=== PATIENT | male | born 1965 | race Caucasian/White ===

== ENCOUNTER 2022-05-08 07:08 | Outpatient (CLI) | payer BC, SELFPAY ==
[2022-05-08 07:37] LABS: Anion Gap 8 mmol/L (8-16); Blood Urea Nitrogen 35 mg/dL (7-18); Calcium 9.1 mg/dL (8.5-10.1); Carbon Dioxide 26 mmol/L (21-32); Chloride 101 mmol/L (98-108); Estimated Glomerular Filt Rate 32; Glucose 172 mg/dL (70-99); Osmolality Calculated 292 mOsm/kg (285-295); Potassium 4.1 mmol/L (3.5-5.1); Sodium 135 mmol/L (136-145)
[2022-05-08 07:46] LABS: Hemoglobin A1C 6.9 % (<5.7)
== END 2022-05-08 07:09 | disposition home or self-care (01) ==
LOC: CHSLAB 07:12
PROVIDERS: PCP Internal Medicine; Visit Provider Internal Medicine
DX: E11.9 Type 2 diabetes mellitus without complications (principal)
CPT/HCPCS: 36415; 80048; 83036

== ENCOUNTER 2022-05-26 19:26 | Emergency (ER) | payer BC, SELFPAY ==
--- NOTE | 2022-05-26 19:36 | ED.ALLEREA ---
HPI - Allergic Reaction General Chief complaint: Allergic Reaction Stated complaint: hives from allergic reaction Source: patient, family and RN notes reviewed Mode of arrival: ambulatory Limitations: no limitations History of Present Illness HPI narrative: patient states he is taking valsartan. Recently had his dose increased. He began having some itching just generalized but not really severe. He thought it might be due to his increased dose of losartan so he started breaking it in half. Takes a half in the morning half in the evening. This evening he took the half pill and he got stuck in his throat [place] almost threw up and then he broke out in hives on his back. He said he has had some allergies from many medications in the past. He took 1 Xyzal chewed up and swallowed it took a 2nd Xyzal hole and also took Benadryl. He said he was wheezing the wheezing has resolved. MD complaint: allergic reaction and hives Onset (ago): hour(s) (1) Exposure: medication Symptoms: rash and itching Severity: moderate Treatment prior to arrival: benadryl Previous Allergic Reaction History: prior ED visit(s) Related Data Home Medications Medication Instructions Recorded Confirmed atorvastatin 40 mg tablet 40 mg PO DAILY 05/26/22 05/26/22 empagliflozin 25 mg tablet 25 mg PO DAILY 05/26/22 05/26/22 (Jardiance) escitalopram oxalate 10 mg tablet 10 mg PO DAILY 05/26/22 05/26/22 metformin 500 mg tablet,extended 500 mg PO DAILY 05/26/22 05/26/22 release 24 hr Allergies Allergy/AdvReac Type Severity Reaction Status Date / Time NSAIDS (Non-Steroidal Allergy Unknown Swelling Verified 05/26/22 19:38 Anti-Inflamma of Lip/Tongue/Throat clopidogrel Allergy Hives Verified 05/26/22 19:38 lidocaine Allergy Hives Verified 05/26/22 19:38 ropivacaine Allergy Hives Verified 05/26/22 19:38 Succinimides Allergy Anaphylactic Verified 05/26/22 19:38 Shock succinylcholine Allergy Anaphylactic Verified 05/26/22 19:38 Shock yellow dye Allergy Hives Verified 05/26/22 19:38 tartrazine Allergy Unknown Uncoded 05/26/22 19:40 Review of Systems Review of Systems: All systems reviewed & are unremarkable except as noted in HPI and below PMFSH Past Medical History Medical History Carotid stenosis GERD (gastroesophageal reflux disease) Hypertension Type 2 diabetes mellitus Surgical History Surgical History History of carotid endarterectomy Previous back surgery Family History Family History Father Patient's father is in good health Sibling Patient's sister is in good health Patient's brother is in good health Mother Family history of diabetes mellitus in first degree relative, Onset Age: 64 Patient's mother is Grandparent Family history of heart disease in male family member before age 55 Social History Social History (Updated 05/26/22 @ 19:48 by Deniz Brian MD) Smoking status: Never smoker Exam Const: General: healthy appearing, no acute distress and alert Nutritional Appearance: well nourished Orientation/consciousness: patient oriented x3 Limitations: no limitations HENMT: Head: normal to inspection Ears: external ears normal Eyes: Conjunctivae: conjunctivae normal Pupils: Equal, round and reactive pupils present EOM: EOMs intact bilaterally Neck: Neck: normal visual inspection Resp: Effort & Inspection: normal respiratory effort Auscultation: clear to auscultation bilaterally Cardio: Rate: regular rate Rhythm: regular rhythm GI: GI Palp: Yes Soft to palpation and No Tenderness to palpation present (GI) Auscultation: normal bowel sounds Back/Spine/Pelvis: Cervical Spine: cervical ROM normal Thoracic/Lumbar Spine: thoraco-lumbar ROM normal Skin: General skin exam: normal color Rashes: rashes
[2022-05-26 19:46] VITALS: BP 182/93; PULSE 99; RESP 18; TEMP 36.6; O2SAT 99
[2022-05-26] MEDS: methylPREDNISolone SOD SUCC 125 MG VIAL IM (19:52)
[2022-05-26 20:12] VITALS: BP 146/87; PULSE 89; RESP 18; O2SAT 97
== END 2022-05-26 20:13 | disposition home or self-care (01) ==
PROVIDERS: Emergency Provider Emergency Medicine; PCP Internal Medicine
DX: T78.40XA Allergy, unspecified, initial encounter (principal)
CPT/HCPCS: 96372; 99283; J2930

== ENCOUNTER 2022-09-17 07:58 | Outpatient (CLI) | payer BC, SELFPAY ==
--- NOTE | ~2022-09-17 | US_ITS ---
EXAMINATION: US retroperitoneal duplex ltd DATE: 09/17/2022 09:07 INDICATION: Chronic kidney disease and hypertension TECHNIQUE: Multiple grayscale, color Doppler, and pulsed Doppler images of the kidneys and renal chiquita christina were obtained. COMPARISON: None. FINDINGS: The aorta peak systolic velocity is 99 cm/s. The right renal artery peak systolic velocity is 93 cm/s in the proximal segment, 89 cm/s in the mid segment, and 34 cm/s in the distal segment. The left viktoria al artery peak systolic velocity is 133 cm/s in the proximal segment, 102 cm/s in the mid segment, an d 102 cm/s in the distal segment. IMPRESSION: 1. No Doppler evidence of renal artery stenosis. Reviewed, dictated and finalized at location A. [facility] [employer]
[2022-09-17 09:00] LABS: Basophils Absolute Auto 0.03 K/mm3 (0.00-0.10); Basophils Percent Auto 0.3 % (0.0-1.0); Eosinophils Absolute Auto 0.47 K/mm3 (0.02-0.50); Eosinophils Percent Auto 4.6 % (1.0-6.0); Hematocrit 41.9 % (40.0-54.0); Hemoglobin 14.1 g/dL (14.0-18.0); Immature Granulocyte Absolute 0.07 K/mm3 (0.00-0.00); Immature Granulocyte Percent A 0.7 % (0.0-0.0); Lymphocytes Absolute Auto 1.67 K/mm3 (1.10-4.50); Lymphocytes Percent Auto 16.3 % (18.0-42.0); Mean Corpuscular HGB Conc 33.7 g/dL (32.0-36.0); Mean Corpuscular Hemoglobin 29.9 pg (27.0-31.0); Mean Corpuscular Volume 88.8 fL (78.0-102.0); Mean Platelet Volume 9.8 fl (8.7-11.0); Monocytes Absolute Auto 0.56 K/mm3 (0.10-0.90); Monocytes Percent Auto 5.5 % (2.0-11.0); Neutrophils Absolute Auto 7.5 K/mm3 (1.7-7.2); Neutrophils Percent Auto 72.6 % (50.0-70.0); Platelet Count Result 192 K/mm3 (150-420); Red Blood Count 4.72 M/mm3 (4.70-6.10); Red Cell Distribution Width 14.2 % (11.6-14.4); White Blood Count 10.3 K/mm3 (4.8-10.8)
[2022-09-17 09:09] LABS: Hemoglobin A1C 7.9 % (<5.7)
[2022-09-17 09:17] LABS: Creatinine Urine 204.22 mg/dL (40-278)
[2022-09-17 09:18] LABS: MALB Creatinine Ratio 195.8 mg/g (0-30); Microalbumin Urine Random > 400.0 mg/L
[2022-09-17 09:52] LABS: Alanine Aminotransferase 27 U/L (16-63); Albumin Level 4.1 g/dL (3.4-5.0); Alkaline Phosphatase 99 U/L (46-116); Anion Gap 10 mmol/L (8-16); Aspartate Amino Transferase 14 U/L (15-37); Bilirubin,Total 0.5 mg/dL (0.00-1.00); Blood Urea Nitrogen 37 mg/dL (7-18); Calcium 9.3 mg/dL (8.5-10.1); Carbon Dioxide 26 mmol/L (21-32); Chloride 103 mmol/L (98-108); Cholesterol 148 mg/dL (0-200); Estimated Glomerular Filt Rate 30; Glucose 205 mg/dL (70-99); HDL Direct 29 mg/dL (40-60); LDL Cholesterol Calculated 61 mg/dL (<130); Osmolality Calculated 302 mOsm/kg (285-295); Phosphorus 3.8 mg/dL (2.6-4.7); Potassium 5.4 mmol/L (3.5-5.1); Sodium 139 mmol/L (136-145); Thyroid Stimulating Hormone Reflex 1.72 u/IU/mL (0.36-3.74); Total Protein 7.8 g/dL (6.4-8.2); Triglycerides 291 mg/dL (0-150)
[2022-09-23 16:00] LABS: Renin 11.63 ng/mL/h (0.25-5.82)
== END 2022-09-17 07:59 | disposition home or self-care (01) ==
LOC: CHSIMG 08:00
PROVIDERS: PCP Family Medicine; Visit Provider Family Medicine
DX: E11.9 Type 2 diabetes mellitus without complications (principal); I12.9 Hypertensive chronic kidney disease with stage 1 through stage 4 chronic kidney disease, or unspecified chronic kidney disease; N18.9 Chronic kidney disease, unspecified
CPT/HCPCS: 36415; 80053; 80061; 82043; 82088; 83036; 83735; 84100; 84244; 84443; 85025; 93976

== ENCOUNTER 2022-09-23 15:19 | Outpatient (CLI) | payer BC, SELFPAY ==
[2022-10-01 15:11] LABS: Vanillymandelic Acid 24 Hr Ur 1.7 mg/24 h (< OR = 6.0)
== END 2022-09-23 15:20 | disposition home or self-care (01) ==
LOC: CHSLAB 15:22
PROVIDERS: PCP Family Medicine; Visit Provider Family Medicine
DX: I10 Essential (primary) hypertension (principal)
CPT/HCPCS: 84585

== ENCOUNTER 2022-11-27 09:31 | Outpatient (CLI) | payer BC, SELFPAY ==
[2022-11-27 09:49] LABS: Hematocrit 39.9 % (40.0-54.0); Hemoglobin 13.8 g/dL (14.0-18.0); Mean Corpuscular HGB Conc 34.6 g/dL (32.0-36.0); Mean Corpuscular Hemoglobin 30.1 pg (27.0-31.0); Mean Corpuscular Volume 87.1 fL (78.0-102.0); Mean Platelet Volume 9.8 fl (8.7-11.0); Platelet Count Result 197 K/mm3 (150-420); Red Blood Count 4.58 M/mm3 (4.70-6.10); Red Cell Distribution Width 13.4 % (11.6-14.4); White Blood Count 12.4 K/mm3 (4.8-10.8)
[2022-11-27 10:21] LABS: Alanine Aminotransferase 27 U/L (16-63); Alkaline Phosphatase 115 U/L (46-116); Anion Gap 11 mmol/L (8-16); Aspartate Amino Transferase 24 U/L (15-37); Bilirubin,Total 0.5 mg/dL (0.00-1.00); Blood Urea Nitrogen 42 mg/dL (7-18); Calcium 9.4 mg/dL (8.5-10.1); Carbon Dioxide 27 mmol/L (21-32); Chloride 98 mmol/L (98-108); Estimated Glomerular Filt Rate 30; Glucose 251 mg/dL (70-99); Osmolality Calculated 300 mOsm/kg (285-295); Potassium 4.7 mmol/L (3.5-5.1); Sodium 136 mmol/L (136-145); Total Protein 8.4 g/dL (6.4-8.2); Uric Acid 9.2 mg/dL (3.5-7.2)
== END 2022-11-27 09:32 | disposition home or self-care (01) ==
LOC: CHSLAB 09:33
PROVIDERS: PCP Family Medicine; Visit Provider Nurse Practitioner Family
DX: M79.89 Other specified soft tissue disorders (principal); M79.674 Pain in right toe(s)
CPT/HCPCS: 36415; 80053; 84550; 85027

== ENCOUNTER 2022-12-29 07:56 | Outpatient (CLI) | payer BC, SELFPAY ==
[2022-12-29 08:05] LABS: Hematocrit 40.7 % (40.0-54.0); Hemoglobin 13.8 g/dL (14.0-18.0); Mean Corpuscular HGB Conc 33.9 g/dL (32.0-36.0); Mean Corpuscular Hemoglobin 29.6 pg (27.0-31.0); Mean Corpuscular Volume 87.2 fL (78.0-102.0); Mean Platelet Volume 9.9 fl (8.7-11.0); Platelet Count Result 224 K/mm3 (150-420); Red Blood Count 4.67 M/mm3 (4.70-6.10); Red Cell Distribution Width 13.8 % (11.6-14.4); White Blood Count 10.6 K/mm3 (4.8-10.8)
[2022-12-29 08:23] LABS: Hemoglobin A1C 8.4 % (<5.7)
[2022-12-29 09:00] LABS: Alanine Aminotransferase 35 U/L (16-63); Alkaline Phosphatase 107 U/L (46-116); Anion Gap 10 mmol/L (8-16); Aspartate Amino Transferase 19 U/L (15-37); Bilirubin,Total 0.6 mg/dL (0.00-1.00); Blood Urea Nitrogen 49 mg/dL (7-18); Calcium 9.1 mg/dL (8.5-10.1); Carbon Dioxide 27 mmol/L (21-32); Chloride 100 mmol/L (98-108); Cholesterol 132 mg/dL (0-200); Estimated Glomerular Filt Rate 24; Glucose 215 mg/dL (70-99); HDL Direct 27 mg/dL (40-60); LDL Cholesterol Calculated 40 mg/dL (<130); Osmolality Calculated 303 mOsm/kg (285-295); Sodium 137 mmol/L (136-145); Thyroid Stimulating Hormone 1.88 uIU/mL (0.36-3.74); Total Protein 7.8 g/dL (6.4-8.2); Triglycerides 326 mg/dL (0-150)
[2022-12-29 10:03] LABS: MALB Creatinine Ratio 276.8 mg/g (0-30); Microalbumin Urine Random 348.5 mg/L
== END 2022-12-29 07:57 | disposition home or self-care (01) ==
LOC: CHSLAB 07:57
PROVIDERS: PCP Family Medicine; Visit Provider Nurse Practitioner Family
DX: I10 Essential (primary) hypertension (principal); E11.9 Type 2 diabetes mellitus without complications; N18.9 Chronic kidney disease, unspecified
CPT/HCPCS: 36415; 80053; 80061; 82043; 83036; 84443; 85027

== ENCOUNTER 2023-01-01 12:50 | Outpatient (NON) | payer BC, SELFPAY | END 2023-01-01 12:51 | disposition home or self-care (01) | LOC: CHSLAB 12:52 | PROVIDERS: Visit Provider Nurse Practitioner Family | DX: R21 Rash and other nonspecific skin eruption (principal) | CPT/HCPCS: 87070; 87205 ==

== ENCOUNTER 2023-03-23 07:11 | Outpatient (CLI) | payer BC, SELFPAY ==
[2023-03-23 07:54] LABS: Hemoglobin A1C 7.8 % (<5.7)
== END 2023-03-23 07:12 | disposition home or self-care (01) ==
LOC: CHSLAB 07:12
PROVIDERS: PCP Family Medicine; Visit Provider Nurse Practitioner Family
DX: E11.9 Type 2 diabetes mellitus without complications (principal)
CPT/HCPCS: 36415; 83036

== ENCOUNTER 2023-04-09 07:33 | Outpatient (CLI) | payer BC, SELFPAY ==
[2023-04-09 08:10] LABS: Albumin Level 4.1 g/dL (3.4-5.0); Anion Gap 11 mmol/L (8-16); Blood Urea Nitrogen 38 mg/dL (7-18); Calcium 9.6 mg/dL (8.5-10.1); Carbon Dioxide 28 mmol/L (21-32); Chloride 100 mmol/L (98-108); Estimated Glomerular Filt Rate 29; Glucose 212 mg/dL (70-99); Osmolality Calculated 303 mOsm/kg (285-295); Phosphorus 4.5 mg/dL (2.6-4.7); Potassium 4.8 mmol/L (3.5-5.1); Sodium 139 mmol/L (136-145)
== END 2023-04-09 07:34 | disposition home or self-care (01) ==
LOC: CHSLAB 07:38
PROVIDERS: PCP Family Medicine; Visit Provider Nurse Practitioner Family
DX: M10.9 Gout, unspecified (principal); N18.9 Chronic kidney disease, unspecified
CPT/HCPCS: 36415; 80069; 84550

== ENCOUNTER 2023-06-10 02:12 | Emergency (ER) | payer BC, SELFPAY ==
--- NOTE | ~2023-06-10 | XR_ITS ---
Portable chest x-ray Comparison: None Clinical History: Hypertension Findings: Questionable very subtle right upper lobe pulmonary nodule. Cardiomediastinal silhouette is mildly prominent, possibly due to AP technique. Bones and soft tissues are unremarkable. Impression: Questionable very subtle right upper lobe pulmonary nodule. CT scan recommended to confirm or exclude . Reviewed, dictated and finalized at [facility]. Impression: Questionable very subtle right upper lobe pulmonary nodule. CT scan recommended to confirm or exclude.
[2023-06-10 02:12] VITALS: BP 204/98; PULSE 90; RESP 20; O2SAT 99
--- NOTE | 2023-06-10 02:13 | ED.GENADULT ---
HPI - General Adult General Chief complaint: Unspecified Stated complaint: blood pressure problem Time Seen by Provider: 06/10/23 02:13 Source: patient Mode of arrival: ambulatory Limitations: no limitations History of Present Illness HPI narrative: 58-year-old male with a history of smoking, hypertension, diabetes mellitus, carotid stenosis status post CEA, GERD, depression, chronic back pain, OSMEL,CKD stage 4 saw his primary care physician yesterday for elevated blood Pressure. The patient got up this morning and felt -- flushed. Noted to have elevated blood pressures. His current blood pressure is noted to be 204/98. Blood sugar was noted to be 283 The patient denied any chest pain or shortness of breath. No nausea/vomiting /abdominal pain. Onset (ago): day(s) Relieving factors: none Exacerbating factors: none Associated symptoms: denies other symptoms Related Data Home Medications Medication Instructions Recorded Confirmed hydrochlorothiazide 25 mg tablet 25 mg PO DAILY 09/02/22 06/10/23 nebivolol 20 mg tablet (Bystolic) 20 mg PO BID 11/27/22 06/10/23 atorvastatin 40 mg tablet 40 mg PO .Wed12/02/22 06/10/23 Allergies Allergy/AdvReac Type Severity Reaction Status Date / Time NSAIDS (Non-Steroidal Allergy Unknown Swelling Verified 06/08/23 07:35 Anti-Inflamma of Lip/Tongue/Throat clopidogrel Allergy Hives Verified 06/08/23 07:35 lidocaine Allergy Hives Verified 06/08/23 07:35 ropivacaine Allergy Hives Verified 06/08/23 07:35 Succinimides Allergy Anaphylactic Verified 06/08/23 07:35 Shock succinylcholine Allergy Anaphylactic Verified 06/08/23 07:35 Shock yellow dye Allergy Hives Verified 06/08/23 07:35 yellow dyes Allergy Unknown Unknown Uncoded 06/08/23 07:35 tartrazine Allergy Unknown Uncoded 06/08/23 07:35 Review of Systems Review of Systems: All systems reviewed & are unremarkable except as noted in HPI and below Constitutional: Constitutional: Reports as per HPI and Reports no additional constitutional complaints Eyes: Eyes: Reports as per HPI and Reports no additional eye complaints ENT: Reports system reviewed and no additional complaints, except as documented and Reports as per HPI Cardiovascular: Cardiovascular: Reports as per HPI and Reports no additional cardiovascular complaints Respiratory: Respiratory: Reports as per HPI and Reports no additional respiratory complaints Gastrointestinal: Gastrointestinal: Reports as per HPI and Reports no additional gastrointestinal complaints Genitourinary: Genitourinary: Reports no additional male genitourinary complaints Musculoskeletal: Musculoskeletal: Reports no additional musculoskeletal complaints Integumentary/Breasts: Skin/Breast: Reports system reviewed and no additional complaints, except as docu and Reports as per HPI Neurologic: Reports system reviewed and no additional complaints, except as documented and Reports as per HPI Psychiatric: Psychiatric: Reports no additional psychiatric complaints and Reports as per HPI Endocrine: Endocrine: Reports no additional endocrine complaints and Reports as per HPI Hematologic/Lymphatic: Hematologic/Lymphatic: Reports no additional hematologic/lymphatic complaints and Reports as per HPI Allergic/Immunologic: Allergic/Immunologic: Reports no additional allergic/immunologic complaints and Reports as per HPI PMF Past Medical History Medical History Carotid stenosis CKD (chronic kidney disease) Depression GERD (gastroesophageal reflux disease) Hypertension Hypertension Type 2 diabetes mellitus Surgical History Surgical History History of back surgery 2005. Discectomy History of carotid endarterectomy Previous back surgery Family History Family History Father Patient's father is in good health
[2023-06-10 02:16] VITALS: TEMP 37.3
[2023-06-10 02:27] LABS: Glucose Point of Care 283 mg/dl (65-105)
--- NOTE | 2023-06-10 02:27 | ECG_ITS ---
Measurements Intervals [place] Rate: 84 P: 53 [place]: 180 QRS: 31 QRSD: 99 T: 64 QT: 364 QTc: 432 Interpretive Statements SINUS RHYTHM POSSIBLE RIGHT VENTRICULAR CONDUCTION DELAY [RSR (QR) IN V1/V2] BORDERLINE ECG NO PREVIOUS ECG AVAILABLE FOR COMPARISON Electronically Signed On 06-10-2023 9:07:44 CDT by Kj Ma M.D.
--- NOTE | 2023-06-10 02:28 | PC.NURSE ---
Dr. Pérez stated to pt and that pt was in kidney failure and was right before needing dialysis. Pt sees a double end tenoner setter and stated that doctor never told him that. When doctor left pt stated that he didn't like the news about possibly needing dialysis. Pt's stated don't get upset because I don't think this doctor knows what he is talking about.
[2023-06-10 02:42] LABS: Basophils Absolute Auto 0.04 K/mm3 (0.00-0.10); Basophils Percent Auto 0.4 % (0.0-1.0); Eosinophils Absolute Auto 0.38 K/mm3 (0.02-0.50); Eosinophils Percent Auto 3.9 % (1.0-6.0); Hematocrit 40.9 % (40.0-54.0); Hemoglobin 13.9 g/dL (14.0-18.0); Immature Granulocyte Absolute 0.06 K/mm3 (0.00-0.00); Immature Granulocyte Percent A 0.6 % (0.0-0.0); Lymphocytes Absolute Auto 2.18 K/mm3 (1.10-4.50); Lymphocytes Percent Auto 22.4 % (18.0-42.0); Mean Corpuscular Hemoglobin 29.8 pg (27.0-31.0); Mean Corpuscular Volume 87.6 fL (78.0-102.0); Mean Platelet Volume 9.8 fl (8.7-11.0); Monocytes Absolute Auto 0.66 K/mm3 (0.10-0.90); Monocytes Percent Auto 6.8 % (2.0-11.0); Neutrophils Absolute Auto 6.4 K/mm3 (1.7-7.2); Neutrophils Percent Auto 65.9 % (50.0-70.0); Platelet Count Result 185 K/mm3 (150-420); Red Blood Count 4.67 M/mm3 (4.70-6.10); Red Cell Distribution Width 14.7 % (11.6-14.4); White Blood Count 9.7 K/mm3 (4.8-10.8)
[2023-06-10] MEDS: LABETALOL HCL INJ 100 MG/20 ML VIAL 20 MG IV PUSH (02:51)
[2023-06-10 03:02] VITALS: BP 150/80; PULSE 85; RESP 20; O2SAT 97
[2023-06-10 03:03] LABS: Lactic Acid Reflex 0.4 mmol/L (0.4-2.0)
[2023-06-10 03:04] LABS: Alanine Aminotransferase 24 U/L (16-63); Albumin Level 3.8 g/dL (3.4-5.0); Alkaline Phosphatase 108 U/L (46-116); Anion Gap 12 mmol/L (8-16); Aspartate Amino Transferase 13 U/L (15-37); Bilirubin,Total 0.5 mg/dL (0.00-1.00); Blood Urea Nitrogen 51 mg/dL (7-18); Calcium 9.1 mg/dL (8.5-10.1); Carbon Dioxide 23 mmol/L (21-32); Chloride 97 mmol/L (98-108); Creatine Kinase 51 U/L (39-308); Estimated CRCL calculation 35 ml/min; Estimated Glomerular Filt Rate 26; Glucose 322 mg/dL (70-99); NT Pro B Type Natriuretic Pept 122 pg/mL (0-125); Osmolality Calculated 299 mOsm/kg (285-295); Potassium 3.8 mmol/L (3.5-5.1); Sodium 132 mmol/L (136-145); Total Protein 7.7 g/dL (6.4-8.2); Troponin I 7.4 ng/L (0.00-60.4); Uric Acid 9.7 mg/dL (3.5-7.2)
[2023-06-10 03:48] LABS: Appearance Urine Clear (Clear); Bilirubin Urine Negative (Negative); Blood Urine Negative (Negative); Color Urine Light Yellow (Yellow); Glucose Urine UA 3+ (Negative); Ketones Urine Negative (Negative); Leukocyte Esterase Ur Negative LEU/UL (Negative); Nitrate Urine Negative (Negative); Protein Urine Trace (Negative); Specific Grav Ur 1.015 (1.010-1.020); Urobilinogen Urine 0.2 mg/dL (0.2-1.0)
[2023-06-10 03:54] VITALS: BP 144/75; PULSE 85; RESP 16; O2SAT 96
[2023-06-10 03:54] LABS: Add Urine Microscopic? YES; Bacteria Urine Trace /hpf; RBC Urine 0-2 /hpf (0-2); WBC Urine 0-3 /hpf (0-3)
[2023-06-10 04:24] VITALS: BP 142/70; PULSE 72; RESP 20; TEMP 36.6; O2SAT 97
== END 2023-06-10 04:26 | disposition home or self-care (01) ==
PROVIDERS: Emergency Provider Internal Medicine Critical Care Medicine; PCP Family Medicine
DX: I12.9 Hypertensive chronic kidney disease with stage 1 through stage 4 chronic kidney disease, or unspecified chronic kidney disease (principal); E11.22 Type 2 diabetes mellitus with diabetic chronic kidney disease; N18.4 Chronic kidney disease, stage 4 (severe); Z87.891 Personal history of nicotine dependence
CPT/HCPCS: 36415; 71045; 80053; 81001; 82550; 82948; 83605; 83880; 84484; 84550; 85025; 93005; 96374; 99284

== ENCOUNTER 2023-10-15 08:14 | Outpatient (CLI) | payer BC, OTHER, SELFPAY ==
[2023-10-15 09:04] LABS: Creatinine Urine 72.95 mg/dL (40-278); Total Protein Urine Random 59.1 mg/dL (0.0-11.9); Ur Ttl Prot Creatinine Ratio 0.81 mg/mg (0-0.20)
[2023-10-15 09:22] LABS: Albumin Level 3.9 g/dL (3.4-5.0); Anion Gap 8 mmol/L (8-16); Blood Urea Nitrogen 41 mg/dL (7-18); Calcium 9.2 mg/dL (8.5-10.1); Carbon Dioxide 26 mmol/L (21-32); Chloride 105 mmol/L (98-108); Estimated Glomerular Filt Rate 29; Glucose 137 mg/dL (70-99); Osmolality Calculated 300 mOsm/kg (285-295); Phosphorus 4.8 mg/dL (2.6-4.7); Potassium 5.2 mmol/L (3.5-5.1); Sodium 139 mmol/L (136-145)
[2023-10-18 22:04] LABS: Parathyroid Intact 37 pg/mL (14-64)
[2023-10-19 12:12] LABS: Vitamin D 25 Hydroxy 30 ng/mL (30-100)
== END 2023-10-15 08:15 | disposition home or self-care (01) ==
LOC: CHSLAB 08:18
PROVIDERS: PCP Family Medicine; Visit Provider Internal Medicine Nephrology
DX: N25.81 Secondary hyperparathyroidism of renal origin (principal); N18.4 Chronic kidney disease, stage 4 (severe); I12.9 Hypertensive chronic kidney disease with stage 1 through stage 4 chronic kidney disease, or unspecified chronic kidney disease; E55.9 Vitamin D deficiency, unspecified; E11.22 Type 2 diabetes mellitus with diabetic chronic kidney disease
CPT/HCPCS: 36415; 80069; 82306; 82570; 83970; 84156

== ENCOUNTER 2023-10-29 09:40 | Outpatient (CLI) | payer BC, OTHER, SELFPAY ==
[2023-10-29 10:48] LABS: Hemoglobin A1C 6.7 % (<5.7)
[2023-10-29 12:04] LABS: Cholesterol 158 mg/dL (0-200); HDL Direct 43 mg/dL (40-60); LDL Cholesterol Calculated 90 mg/dL (<130); Potassium 5.2 mmol/L (3.5-5.1); Triglycerides 123 mg/dL (0-150)
== END 2023-10-29 09:41 | disposition home or self-care (01) ==
LOC: CHSLAB 09:42
PROVIDERS: PCP Nurse Practitioner Family; Visit Provider Nurse Practitioner Family
DX: E11.22 Type 2 diabetes mellitus with diabetic chronic kidney disease (principal); N18.4 Chronic kidney disease, stage 4 (severe)
CPT/HCPCS: 36415; 80061; 83036; 84132

== ENCOUNTER 2023-12-31 07:46 | Outpatient (CLI) | payer BC, OTHER, SELFPAY ==
[2023-12-31 08:58] LABS: Anion Gap 11 mmol/L (4-12); Blood Urea Nitrogen 41 mg/dL (7-18); Calcium 9.1 mg/dL (8.5-10.1); Carbon Dioxide 26 mmol/L (21-32); Chloride 103 mmol/L (98-108); Estimated Glomerular Filt Rate 28; Glucose 143 mg/dL (70-99); Osmolality Calculated 302 mOsm/kg (285-295); Phosphorus 3.6 mg/dL (2.6-4.7); Potassium 4.9 mmol/L (3.5-5.1); Sodium 140 mmol/L (136-145)
== END 2023-12-31 07:47 | disposition home or self-care (01) ==
LOC: CHSLAB 07:49
PROVIDERS: PCP Family Medicine; Visit Provider Internal Medicine Nephrology
DX: N18.4 Chronic kidney disease, stage 4 (severe) (principal)
CPT/HCPCS: 36415; 80069

== ENCOUNTER 2024-02-28 07:40 | Outpatient (CLI) | payer BC, OTHER, SELFPAY ==
[2024-02-28 08:10] LABS: Hemoglobin A1C 5.9 % (<5.7)
== END 2024-02-28 07:41 | disposition home or self-care (01) ==
LOC: CHSLAB 07:43
PROVIDERS: PCP Nurse Practitioner Family; Visit Provider Nurse Practitioner Family
DX: E11.22 Type 2 diabetes mellitus with diabetic chronic kidney disease (principal)
CPT/HCPCS: 36415; 83036

== ENCOUNTER 2024-03-03 11:14 | Outpatient (CLI) | payer BC, OTHER, SELFPAY ==
--- NOTE | 2024-03-03 11:44 | ECG_ITS ---
Test Date: 2024-03-03 11:54:03 Measurements Intervals [place] Rate: 76 P: 64 [place]: 172 QRS: 28 QRSD: 92 T: 63 QT: 367 QTc: 413 Interpretive Statements SINUS RHYTHM BASELINE ARTIFACT- I, III, AVR, AVL, AVF, V1-V6 NORMAL ECG No previous ECG available for comparison Electronically Signed On 03-03-2024 11:59:35 CDT by Olegario Sung D.O.
[2024-03-03 12:20] LABS: NT Pro B Type Natriuretic Pept 217 pg/mL (0-125)
== END 2024-03-03 11:15 | disposition home or self-care (01) ==
LOC: CHSLAB 11:16
PROVIDERS: PCP Family Medicine; Visit Provider Nurse Practitioner Family
DX: Z00.00 Encounter for general adult medical examination without abnormal findings (principal); R07.9 Chest pain, unspecified; M10.9 Gout, unspecified; E11.22 Type 2 diabetes mellitus with diabetic chronic kidney disease
CPT/HCPCS: 36415; 83880; 93005

== ENCOUNTER 2024-03-15 21:49 | Emergency (ER) | payer BC, OTHER, SELFPAY ==
[2024-03-15] VITALS (18 sets, daily range): BP systolic 101–182; BP diastolic 59–73; PULSE 69–84; RESP 14–18; TEMP 36.6; O2SAT 93–96
--- NOTE | ~2024-03-15 | XR_ITS ---
XR chest 1V portable Ordering provider: Zhang Pérez MD History: 59 years Male with . left chest pain . Comparison: June 10, 2023 FINDINGS: MEDIASTINUM: The cardiac silhouette is moderately enlarged. Congestive isabella. LUNGS: No infiltrates, effusions or pneumothorax. OTHER: No free air under the diaphragm. Degenerative changes of the spine. IMPRESSION: No acute cardiopulmonary pathology. Reviewed, dictated and finalized at location A.
--- NOTE | 2024-03-15 21:56 | ED.CHESTPAIN ---
HPI - Chest Pain General Chief Complaint: Chest Pain Stated Complaint: chest pain Time Seen by Provider: 03/15/24 21:56 Source: patient Mode of arrival: ambulatory Limitations: no limitations History of Present Illness HPI narrative: 59-year-old male, ex-smoker with a history of hypertension, dyslipidemia, diabetes mellitus, gout, carotid stenosis status post CEA, status post back surgery presents to the ER with a 1 hour history of -- anterior chest pain. patient has been left chest pain the past 2 weeks. The past the chest pain lasted 5-10 minutes. Today he had an unprovoked chest pain which lasted more than an hour which prompted him to come to the ER. At the peak of the pain the patient had a 7/10. Currently the pain has resolved. Patient has nausea without any vomiting. No shortness of breath. No lightheadedness. -- facial flushing Patient is scheduled to have an echocardiogram. He does not have any prior history of getting a stress test. MD complaint: chest pain Onset (ago): hour(s) ( 1 hour) Timing of current episode: constant Prior episodes: Yes Onset: during rest Pain location: left chest Pain radiation: none Pain scale (0-10): 7 Quality: aching Relieving factors: nothing Exacerbating factors: nothing Associated symptoms: nausea Risk Factors Coronary artery disease risk factors: diabetes, smoking history, hyperlipidemia and hypertension Related Data Home Medications Medication Instructions Recorded Confirmed nebivolol 20 mg tablet (Bystolic) 20 mg PO BID 11/27/22 03/03/24 Allergies Allergy/AdvReac Type Severity Reaction Status Date / Time NSAIDS (Non-Steroidal Allergy Unknown Swelling Verified 03/15/24 22:00 Anti-Inflamma of Lip/Tongue/Throat clopidogrel Allergy Hives Verified 03/15/24 22:00 lidocaine Allergy Hives Verified 03/15/24 22:00 ropivacaine Allergy Hives Verified 03/15/24 22:00 Succinimides Allergy Anaphylactic Verified 03/15/24 22:00 Shock succinylcholine Allergy Anaphylactic Verified 03/15/24 22:00 Shock yellow dye Allergy Hives Verified 03/15/24 22:00 yellow dyes Allergy Unknown Unknown Uncoded 03/03/24 09:18 tartrazine Allergy Unknown Uncoded 03/03/24 09:18 Review of Systems Review of Systems: All systems reviewed & are unremarkable except as noted in HPI and below Constitutional: Constitutional: Reports as per HPI and Reports no additional constitutional complaints Eyes: Eyes: Reports as per HPI and Reports no additional eye complaints ENT: Reports system reviewed and no additional complaints, except as documented and Reports as per HPI Cardiovascular: Cardiovascular: Reports as per HPI, Reports no additional cardiovascular complaints and Reports chest pain Respiratory: Respiratory: Reports as per HPI and Reports no additional respiratory complaints Gastrointestinal: Gastrointestinal: Reports as per HPI, Reports no additional gastrointestinal complaints and Reports nausea Genitourinary: Genitourinary: Reports no additional male genitourinary complaints Musculoskeletal: Musculoskeletal: Reports no additional musculoskeletal complaints and Reports as per HPI Integumentary/Breasts: Skin/Breast: Reports system reviewed and no additional complaints, except as docu and Reports as per HPI Neurologic: Reports system reviewed and no additional complaints, except as documented and Reports as per HPI Psychiatric: Psychiatric: Reports no additional psychiatric complaints and Reports as per HPI Endocrine: Endocrine: Reports no additional endocrine complaints and Reports as per HPI Hematologic/Lymphatic: Hematologic/Lymphatic: Reports no additional hematologic/lymphatic complaints and Reports as per HPI Allergic/Immunologic: Allergic/Immunologic: Reports no additional allergic/immunologic complaints and Reports as per HPI [facility] Past Medical History Medical History Carotid stenosis Chronic kidney disease, st
--- NOTE | 2024-03-15 22:00 | ECG_ITS ---
Test Date: 2024-03-15 21:56:33 Measurements Intervals [place] Rate: 79 P: 10 [place]: 165 QRS: 47 QRSD: 97 T: 12 QT: 378 QTc: 434 Interpretive Statements SINUS RHYTHM BASELINE ARTIFACT- I, AVR, AVL NORMAL ECG Compared to ECG 03/03/2024 11:54:03 No significant changes Electronically Signed On 03-16-2024 06:29:28 CDT by Olegario Sung D.O.
[2024-03-15 22:17] LABS: Basophils Absolute Auto 0.04 K/mm3 (0.00-0.10); Basophils Percent Auto 0.3 % (0.0-1.0); Eosinophils Absolute Auto 0.42 K/mm3 (0.02-0.50); Eosinophils Percent Auto 3.2 % (1.0-6.0); Hematocrit 46.1 % (40.0-54.0); Hemoglobin 15.9 g/dL (14.0-18.0); Immature Granulocyte Absolute 0.07 K/mm3 (0.00-0.00); Immature Granulocyte Percent A 0.5 % (0.0-0.0); Lymphocytes Absolute Auto 1.97 K/mm3 (1.10-4.50); Mean Corpuscular HGB Conc 34.5 g/dL (32-36); Mean Corpuscular Hemoglobin 30.1 pg (27.0-31.0); Mean Corpuscular Volume 87.3 fL (78.0-102.0); Monocytes Absolute Auto 0.82 K/mm3 (0.10-0.90); Monocytes Percent Auto 6.3 % (2.0-11.0); Neutrophils Percent Auto 74.7 % (50.0-70.0); Platelet Count Result 196 K/mm3 (150-420); Red Blood Count 5.28 M/mm3 (4.70-6.10); Red Cell Distribution Width 14.6 % (11.6-14.4); White Blood Count 13.1 K/mm3 (4.8-10.8)
[2024-03-15 22:25] LABS: INR 0.9; Partial Thromboplastin Time 27.2 Sec (23.9-30.70); Prothrombin Time 9.9 Seconds (9.50-12.1)
[2024-03-15 22:28] LABS: Lactic Acid Reflex 0.4 mmol/L (0.4-2.0)
[2024-03-15 22:30] LABS: Alkaline Phosphatase 117 U/L (46-116); Anion Gap 10 mmol/L (4-12); Bilirubin,Total 0.5 mg/dL (0.00-1.00); Blood Urea Nitrogen 59 mg/dL (7-18); Calcium 9.1 mg/dL (8.5-10.1); Carbon Dioxide 26 mmol/L (21-32); Chloride 98 mmol/L (98-108); Estimated CRCL calculation 39 ml/min; Estimated Glomerular Filt Rate 28; Glucose 281 mg/dL (70-99); Osmolality Calculated 304 mOsm/kg (285-295); Potassium 4.2 mmol/L (3.5-5.1); Sodium 134 mmol/L (136-145); Total Protein 8.3 g/dL (6.4-8.2)
[2024-03-15 22:34] LABS: Troponin I 12.6 ng/L (0.00-60.4); Uric Acid 7.2 mg/dL (3.5-7.2)
[2024-03-15 22:56] LABS: Alanine Aminotransferase 27 U/L (16-63); Aspartate Amino Transferase 15 U/L (15-37)
--- NOTE | 2024-03-15 23:25 | PC.NURSE ---
PATIENT UPDATE PROVIDED PER RN. PATIENT AWAKE AND ALERT WITHOUT DISTRESS RESTING ON STRETCHER WITH SIG OTHER AT BEDSIDE, DENIES ANY CURRENT PAIN. VSS. RN MONITORING. CALL LIGHT WITHIN REACH.
[2024-03-16] VITALS (11 sets, daily range): BP systolic 131–154; BP diastolic 55–70; PULSE 64–71; RESP 12–17; TEMP 36.1; O2SAT 94–97
--- NOTE | 2024-03-16 00:29 | PC.NURSE ---
PHLEBOTOMY AT BEDSIDE FOR REPEAT TROPONIN DRAW. PATIENT AWAKE AND ALERT WITH VSS. DENIES FURTHER CP.
--- NOTE | 2024-03-16 00:30 | ECG_ITS ---
Test Date: 2024-03-16 00:15:19 Measurements Intervals [place] Rate: 66 P: 40 VT: 178 QRS: 7 QRSD: 93 T: 43 QT: 398 QTc: 420 Interpretive Statements SINUS RHYTHM CONSIDER INFERIOR INFARCT, AGE INDETERMINATE ABNORMAL ECG Compared to ECG 03/15/2024 21:56:33 No significant changes Electronically Signed On 03-16-2024 06:30:18 CDT by Olegario Sung D.O.
--- NOTE | 2024-03-16 00:37 | PC.NURSE ---
DR. TREJO AT BEDSIDE FOR UPDATE TO PATIENT AND HIS SPOUSE.
[2024-03-16 00:52] LABS: Troponin I 12.2 ng/L (0.00-60.4)
--- NOTE | 2024-03-16 01:21 | PC.NURSE ---
DR. TREJO AT BEDSIDE FOR UPDATE REGARDING RESULTS AND PLAN
== END 2024-03-16 01:27 | disposition home or self-care (01) ==
PROVIDERS: Emergency Provider Internal Medicine Critical Care Medicine; PCP Nurse Practitioner Family
DX: I12.9 Hypertensive chronic kidney disease with stage 1 through stage 4 chronic kidney disease, or unspecified chronic kidney disease (principal); E11.22 Type 2 diabetes mellitus with diabetic chronic kidney disease; N18.4 Chronic kidney disease, stage 4 (severe); R07.9 Chest pain, unspecified; E78.5 Hyperlipidemia, unspecified; Z87.891 Personal history of nicotine dependence
CPT/HCPCS: 36415; 71045; 80053; 83605; 84484; 84550; 85025; 85610; 85730; 93005; 99284

== ENCOUNTER 2024-03-30 16:17 | Outpatient (CLI) | payer BC, OTHER, SELFPAY ==
--- NOTE | 2024-03-30 16:23 | ECHO_ITS ---
Patient Info Name: Travis Salmeron Age: 59 years : 1965 Gender: Male Ht: 71 in Wt: 233 lbs BSA: 2.33 m2 HR: 60 bpm BP: 177 / 67 mmHg Technical Quality: Fair Exam Date: 03/30/2024 4:10 PM Exam Location: [facility] EM[facility] Patient Status: Outpatient Admit Date: 03/30/2024 Staff Ordering Physician: Jonas Lee APRN Industrial Engineering Intern: Patrick Meneses RDCS Attending Provider: Jonas Lee APRN Exam Type: CA echo doppler color flow Study Info Indications R07.9 - Chest pain, unspecified Complete two-dimensional, color flow and Doppler transthoracic echocardiogram is performed. Summary 1. Complete two-dimensional, color flow and Doppler transthoracic echocardiogram is performed. 2. Left ventricular chamber dimension is normal. 3. Left ventricular systolic function is normal, estimated at 60-65%. 4. The left ventricular diastolic function is abnormal. 5. E/e' 11 is mildly elevated. 6. No pulmonary hypertension, estimated pulmonary arterial systolic pressure is 13 mmHg. 7. There is trace pulmonic regurgitation. Left Ventricle E/e' 11 is mildly elevated. Left ventricular chamber dimension is normal. Left ventricular systolic function is normal, estimated at 60-65%. The left ventricular diastolic function is abnormal. Right Ventricle Right ventricular systolic function is normal and with normal TAPSE 2.2 cm. Right ventricular chamber dimension is normal. Left Atria Left atrial chamber dimension is normal. Right Atria Right atrial chamber dimension is normal. Aortic Valve The aortic valve is trileaflet. There is no aortic valve stenosis. There is no aortic valve regurgitation. Pulmonic Valve There is trace pulmonic regurgitation. Mitral Valve There is no mitral valve stenosis. There is no mitral valve regurgitation. Tricuspid Valve There is no tricuspid valve regurgitation. No pulmonary hypertension, estimated pulmonary arterial systolic pressure is 13 mmHg. Pericardium/Pleural There is no pericardial effusion. Inferior Vena Cava Normal inferior vena cava with >50% collapse upon inspiration consistent with normal right atrial pressure, 5 mmHg. Aorta The aortic root size at the sinus of Valsalva is normal. Left Ventricular Outflow Tract Name Value Normal LVOT 2D LVOT Diameter 2.4 cm LVOT Doppler LVOT Peak Velocity 156 cm/s LVOT Peak Gradient 10 mmHg LVOT Mean Gradient 5 mmHg LVOT VTI 37 cm LVOT VTI/AV VTI Ratio 0.9 LVOT Stroke Volume 166 ml Pulmonic Valve Name Value Normal PV Doppler PV Peak Velocity 99 cm/s PV Peak Gradient 4 mmHg Mitral Valve Name Value Normal
== END 2024-03-30 16:18 | disposition home or self-care (01) ==
LOC: CHSIMG 16:17
PROVIDERS: PCP Nurse Practitioner Family; Visit Provider Nurse Practitioner Family
DX: R07.9 Chest pain, unspecified (principal); R93.1 Abnormal findings on diagnostic imaging of heart and coronary circulation
CPT/HCPCS: 93306

== ENCOUNTER 2024-04-24 07:45 | Outpatient (CLI) | payer BC, OTHER, SELFPAY ==
--- NOTE | 2024-04-24 07:52 | EST_ITS ---
Patient Info Name: Travis Salmeron Age: 59 years : 1965 Gender: Male Ht: 71 in Wt: 231 lbs BSA: 2.32 m2 HR: 54 bpm BP: 151 / 74 mmHg Heart Rhythm: Sinus Rhythm Technical Quality: Good Exam Date: 04/24/2024 9:06 AM Exam Location: Echo Lab Patient Status: Outpatient Admit Date: 04/24/2024 Staff Ordering Physician: Jonas Lee APRN Attending Provider: Jonas Lee APRN Exam Type: CA stress ying w NM Study Info A regadenoson stress test was performed. History/Risk Factors Hypertension: Yes Diabetes Mellitus: Type II History/Risk Factors carotid stenosis, CKD stage IV. Summary 1. 1. Negative lexiscan stress test for ischemic ST changes by ECG criteria. 2. 2. Baseline hypertension. 3. 3. Nuclear scan to follow and will be reported separately. Please correlate with it. Protocol: LEXISCAN Stress ECG Details Stage: REST Duration (min): 3 min : 45 sec HR (bpm): 57 SBP (mmHg): 151 DBP (mmHg): 74 Stage: REST Duration (min): 3 min : 56 sec HR (bpm): 56 SBP (mmHg): 151 DBP (mmHg): 74 Stage: REST Duration (min): 14 min : 55 sec HR (bpm): 58 SBP (mmHg): 151 DBP (mmHg): 74 Stage: STAGE 1 Duration (min): 0 min : 23 sec HR (bpm): 59 SBP (mmHg): 151 DBP (mmHg): 74 Stage: RECOVERY Duration (min): 0 min : 36 sec HR (bpm): 70 SBP (mmHg): 151 DBP (mmHg): 74 Stage: RECOVERY Duration (min): 1 min : 36 sec HR (bpm): 75 SBP (mmHg): 151 DBP (mmHg): 74 Stage: RECOVERY Duration (min): 2 min : 36 sec HR (bpm): 74 SBP (mmHg): 160 DBP (mmHg): 82 Stage: RECOVERY Duration (min): 3 min : 36 sec HR (bpm): 72 SBP (mmHg): 154 DBP (mmHg): 82 Stage: RECOVERY Duration (min): 4 min : 36 sec HR (bpm): 71 SBP (mmHg): 151 DBP (mmHg): 85 Stage: RECOVERY Duration (min): 5 min : 36 sec HR (bpm): 71 SBP (mmHg): 152 DBP (mmHg): 84 Stage: RECOVERY Duration (min): 6 min : 31 sec HR (bpm): 70 SBP (mmHg): 155 DBP (mmHg): 82 Rest HR: 58 bpm Peak HR: 76 bpm Rest Sys BP: 151 mmHg Peak Sys BP: 160 mmHg Max Pred HR: 163 bpm % Max Pred HR: 47 % Target HR: 139 bpm Max RPP: 12,160 bpm*mmHg BP Response: Normal blood pressure response Termination Reason: Completed Protocol Cardiac Symptoms: None Total Time: 0 min : 23 sec Rest Warner BP: 74 mmHg Peak Warner BP: 82 mmHg Total Dose: 0.4 mg Resting ECG Sinus bradycardia. Stress ECG No abnormal ST/T wave changes. Arrhythmias None. Report Signatures
--- NOTE | 2024-04-24 13:24 | WPDCARIOSTRE ---
Nuclear Stress Test INDICATIONS Indications: Chest pain PROCEDURE Procedure Performed: Myocardial Perf Spect-Multi Procedure: Patient exercised on a standard Vikash protocol and at peak exercise was injected with 30.5 mCi of cardiolyte. Multiple tomographic images were obtained. These are of good quality. There is evidence of a large, severe anteroapical, apical and apical-lateral perfusion defects, and moderate size, moderate severity inferior perfusion defect with stress imaging. A separate resting images were obtained after patient was injected with 10.0 mCi of cardiolyte. Multiple tomographic images were obtained. These are of good quality. There is evidence of a moderate size, moderate severity anteroapical, apical and apical-lateral perfusion defects, and moderate size, moderate severity inferior perfusion defect with rest imaging. CONCLUSION Conclusion: 1. Abnormal myocardial perfusion imaging demonstrating combination of infarct and partial reversible ischemia of anteroapical, apical and apical-lateral defects. In addition, there is a fixed moderate size inferior defect suggestive of diaphragmatic attenuation artifact. 2. Left ventriculogram demonstrates normal measured ejection fraction of 60% with mild hypokinesis of apex. 3. TID score 1.2 is unremarkable.
== END 2024-04-24 07:46 | disposition home or self-care (01) ==
LOC: CHSCARD 07:46
PROVIDERS: PCP Nurse Practitioner Family; Visit Provider Nurse Practitioner Family
DX: R07.9 Chest pain, unspecified (principal); R94.39 Abnormal result of other cardiovascular function study
CPT/HCPCS: 78452; 93017; A9502; J2785

== ENCOUNTER 2024-08-21 09:00 | Outpatient (CLI) | payer BC, OTHER, SELFPAY ==
[2024-08-21 09:24] LABS: Hematocrit 40.9 % (40.0-54.0); Mean Corpuscular HGB Conc 34.2 g/dL (32-36); Mean Corpuscular Hemoglobin 29.7 pg (27.0-31.0); Mean Corpuscular Volume 86.7 fL (78.0-102.0); Mean Platelet Volume 9.4 fl (8.7-11.0); Platelet Count Result 158 K/mm3 (150-420); Red Blood Count 4.72 M/mm3 (4.70-6.10); Red Cell Distribution Width 14.4 % (11.6-14.4)
[2024-08-21 09:35] LABS: Hemoglobin A1C 8.6 % (<5.7)
[2024-08-21 09:38] LABS: Total Protein Urine Random 41.8 mg/dL (0.0-11.9); Ur Ttl Prot Creatinine Ratio 0.55 mg/mg (0-0.20)
[2024-08-21 09:53] LABS: MALB Creatinine Ratio 239.5 mg/g (0-30); Microalbumin Urine Random 182.3 mg/L
[2024-08-21 10:21] LABS: Alanine Aminotransferase 28 U/L (16-63); Albumin Level 3.7 g/dL (3.4-5.0); Alkaline Phosphatase 135 U/L (46-116); Anion Gap 8 mmol/L (4-12); Aspartate Amino Transferase 17 U/L (15-37); Bilirubin,Total 0.5 mg/dL (0.00-1.00); Blood Urea Nitrogen 45 mg/dL (7-18); Calcium 9.5 mg/dL (8.5-10.1); Carbon Dioxide 29 mmol/L (21-32); Chloride 105 mmol/L (98-108); Cholesterol 162 mg/dL (0-200); Estimated Glomerular Filt Rate 29; Glucose 183 mg/dL (70-99); HDL Direct 33 mg/dL (40-60); LDL Cholesterol Calculated 63 mg/dL (<130); Osmolality Calculated 310 mOsm/kg (285-295); Phosphorus 4.6 mg/dL (2.6-4.7); Potassium 4.9 mmol/L (3.5-5.1); Sodium 142 mmol/L (136-145); Triglycerides 330 mg/dL (0-150)
[2024-08-22 08:43] LABS: Vitamin D 25 Hydroxy 23 ng/mL (30-100)
[2024-08-22 12:53] LABS: Parathyroid Intact 55 pg/mL (16-77)
== END 2024-08-21 09:01 | disposition home or self-care (01) ==
PROVIDERS: PCP Nurse Practitioner Family; Visit Provider Internal Medicine Nephrology
DX: I12.9 Hypertensive chronic kidney disease with stage 1 through stage 4 chronic kidney disease, or unspecified chronic kidney disease (principal); E11.22 Type 2 diabetes mellitus with diabetic chronic kidney disease; N25.81 Secondary hyperparathyroidism of renal origin; E55.9 Vitamin D deficiency, unspecified; E11.9 Type 2 diabetes mellitus without complications; R79.89 Other specified abnormal findings of blood chemistry; E78.5 Hyperlipidemia, unspecified; N18.4 Chronic kidney disease, stage 4 (severe)
CPT/HCPCS: 36415; 80053; 80061; 82043; 82306; 82570; 83036; 83970; 84100; 84156; 85027

== ENCOUNTER 2024-11-08 09:33 | Outpatient (CLI) | payer BC, OTHER, SELFPAY ==
[2024-11-08 10:19] LABS: Influenza A QL RT-PCR Negative (Negative); Influenza B QL RT-PCR Negative (Negative); RSV RNA, RT-PCR Negative (Negative); SARS-CoV-2 RNA PCR Positive (Negative)
--- OUTSIDE RECORDS SUMMARY | 2024-11-08 10:23 | XMS_ITS | Encounter Summary ---
Author Organization [facility] Address [address] [place] [address] Phone Care Team Providers Care Retread Mold Operator Name Role Phone Sj Hernandez MD Primary Care Provider Cecily Cornejo MD Primary Care Provider Jacques Hobbs DO Primary Care Provider Encounter Details Date Type Department Care Team (Latest Contact Info) Description 12/15/2017 Orders Only [facility] CONVERSION Scanning, Provider Social History Tobacco Use Types Packs/Day Years Used Date Smoking Tobacco: Former Cigarettes Q uit: 08/30/2006 Alcohol Use Standard Drinks/Week Comments No 0 (1 standard drink = 0.6 oz pur e alcohol) Sex and Gender Information Value Date Recorded Sex Assigned at Not on file 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 Gender Identity Male 02/13/2019 5:28 PM CDT Sexual Orientation Straight 02/13/2019 5: 28 PM CDT documented as of this encounter Plan of Treatment Not on file documented as of this encounter Procedures Procedure Name Priority Date/Time Associated Diagnosis Comments VASCULAR LABORATORY REPORT 12/15/2017 3:50 PM CDT documented in this encounter Results * VASCULAR LABORATORY REPORT (12/15/2017 3:50 PM CDT) Anatomical Region Laterality Modality Ultrasound us Provider Scanning CV VASCULAR PROCEDURES Final R esult documented in this encounter Visit Diagnoses Not on filedocumented in this encounter Care Teams Retread Mold Operator Relationship Specialty Start Date End Date Sj Hernandez MD [address] [place] [id number] PCP - General 11/27/16 02/21/20 Cecily Cornejo MD [address] [place] [id number] PCP - General Internal Medicine 02/22/20 06/10/23 Jacques Hobbs DO [address] [place] [address] PCP - General Family Medicine 06/11/23 documented as of this encounter
--- OUTSIDE RECORDS SUMMARY | 2024-11-08 10:23 | XMS_ITS | Clinical Summary ---
Author Organization [facility] Address [address] [address] Care Team Providers Care Homebound Teacher Name Role Phone EstelaJacques rg Primary Care Provider Allergies Active Allergy Reactions Criticality Noted Date Comments Aspirin Anaphylaxis High Clopidogrel Hives Medium 03/29/2015 Iodine Hives Medium Lidocaine Rash,Anaphylaxis High 08/20/2017 Nsaids (Non-Steroidal Anti-Inflammatory Drug) Anaphylaxis High Reaction: Anaphlaxis, Olmesartan-Hydrochlorothia zide Anaphylaxis High Other Anaphylaxis,Hives High 02/01/2014 Ropivacaine Rash,Anaphylaxis High 05/18/2014 Succinylcholine Anaphylaxis High 05/18/2014 Calcium Carbonate Anaphylaxis High Yellow Dye Rash Medium 08/20/2017 Medications levocetirizine (XYZAL) 5 mg tablet take 1 tablet (5MG) by oral route every day in the evening 30 4 2 Active aspirin 325 mg EC tablet take 1 tablet by oral route every day 0 0 4 Active flash glucose scanning reader misc 1 Device daily Please dispense 1 freestyle criss reader 1 each 0 Active flash glucose sensor kit 2 Units daily Please dispense 2 sensors per month 6 kit 3 1 Active EPINEPHrine (EpiPen) 0.3 mg/0.3 mL auto-injection syringe Inject 0.3 mL (0.3 mg total) into the muscle as instructed as needed for anaphylaxis 2 each 3 04/15/202 2 Active nebivoloL (Bystolic) 20 mg tablet Take 1 tablet (20 mg total) by mouth 2 (two) times a day 180 tablet 3 3 Active semaglutide (Ozempic) 0.25 mg or 0.5 mg (2 mg/3 mL) pen injector Inject 0.5 mg under the skin every 7 days 9 mL 3 3 Active allopurinoL (ZYLOPRIM) 100 mg tablet Take 1 tablet (100 mg total) by mouth daily 3 Active BD Ultra-Fine Short Pen Needle 31 gauge x 5/16 needle as directed 3 Active insulin detemir (LEVEMIR) 100 unit/mL (3 mL) pen for injection Inject under the skin Active escitalopram (LEXAPRO) 10 mg tablet 3 Active traMADoL (ULTRAM) 50 mg tablet 3 Active terbinafine (LamiSIL) 250 mg tablet 3 Active irbesartan (AVAPRO) 300 mg tablet TAKE 1 TABLET BY MOUTH EVERY DAY AT NIGHT 30 tablet 4 Active atorvastatin (LIPITOR) 40 mg tablet TAKE 1 TABLET (40 MG TOTAL) BY MOUTH 3 (THREE) TIMES A WEEK 14 tablet 4 Active amLODIPine (NORVASC) 10 mg tablet TAKE 1 TABLET BY MOUTH EVERY DAY 30 tablet 4 Active hydroCHLOROthia zide (HYDRODIURIL) 25 mg tablet TAKE 1 TABLET (25 MG TOTAL) BY MOUTH DAILY. 30 tablet 4 Active Jardiance 10 mg tablet Take 1 tablet (10 mg total) by mouth every morning 4 Active cloNIDine (CATAPRES) 0.2 mg tablet Take 1 tablet (0.2 mg total) by mouth 2 (two) times a day 4 Active Active Problems Problem Noted Date Diagnosed Date Chronic kidney disease-mineral and bone disorder 12/09/2022 Persistent proteinuria 07/21/2022 Chronic kidney disease, stage 4 (severe) 022 Assessment & Plan (11/10/2022 4:01 PM CDT): BMP today Will request Renal dopplers from [facility] BP and BG control Continue jardiance and ARB Continue follow up with nephrology Assessment & Plan (05/12/2022 7:51 AM CDT): Recommend consultation with white metal corrosion proofer Referral placed Current moderate episode of major depressive disorder without prior episode 02/10/2022 Assessment & Plan (11/10/2022 4:01 PM CDT): Start fluoxetine 20mg daily Follow up 3 months Assessment & Plan (07/20/2022 10:39 AM TELEVISION PRODUCTION ASSISTANT): Would like to restart the escitalopram. Prescription sent to the pharmacy. Assessment & Plan (02/10/2022 6:22 PM CDT): Start lexapro 10 daily Follow up 1 month Type 2 diabetes mellitus with chronic kidney dis ease 02/09/2022 Assessment & Plan (11/10/2022 4:03 PM CDT): A1c today Urine micral/cr today Foot exam today Encouraged to schedule eye exam Restart jardiance continue ozempic 0.5mg and metformin Follow up 6 months Assessment & Plan (05/12/2022 7:51 AM CDT): A1c at goal Continue current regimen Encouraged to schedule eye exam Follow up 6 months Onychomycosis 12/12/2021 Assessment & Plan (12/12/2021 12:52 PM CDT): Ciclopirox lacquer If no improvement, will Rx Terbinafine PO Vitamin D deficiency 12/12/2021 Assessment & Plan (11/10/2022 8:10 AM CDT): Continue supplement Check level today Assessment & Plan (12/12/2021 12:53 PM CDT): Check level today Stenosis of left carotid artery 05/13/2021 Assessment & Plan (11/10/2022 8:09 AM CDT): Continue aspirin, statin Follow up with vascular surgery Anxiety 05/27/2020 Assessment & Plan (11/11/2020 5:28 PM CDT): Stable Continue BuSpar Assessment & Plan (05/27/2020 5:45 PM CDT): Start Buspar 5 BID Can uptitrate by 5mg every 2-3 days until reach effective dose Encounter for surgical after care following surgery on the circulatory system 05/10/2020 OSMEL on CPAP 11/09/2019 Assessment & Plan (11/10/2022 3:29 PM CDT): encouraged nightly CPAP use Referred to sleep med for follow up Assessment & Plan (12/12/2021 12:52 PM CDT): Continue nightly CPAP Assessment & Plan (11/11/2020 5:27 PM CDT): Continue nightly CPAP Assessment & Plan (02/22/2020 6:26 PM CDT): Encouraged CPAP compliance Bruit of left carotid artery 12/21/2017 Class 1 obesity due to exces s calories with serious comorbidity and body mass index (BMI) of 31.0 to 31.9 in adult 08/20/2017 Assessment & Plan (11/10/2022 2:42 PM CDT): BMI Follow-up includes: nutrition counseling, exercise counseling and education provided. Assessment & Plan (07/20/2022 9:26 AM TELEVISION PRODUCTION ASSISTANT): BMI Follow-up includes: nutrition counseling, exercise counseling and education provided. Assessment & Plan (05/12/2022 9:48 AM CDT): BMI Follow-up includes: nutrition counseling, exercise counseling and education provided. Assessment & Plan (02/09/2022 2:13 PM CDT): BMI Follow-up includes: nutrition counseling, exercise counseling and education provided. Assessment & Plan (12/12/2021 10:12 AM CDT): BMI Follow-up includes: nutrition counseling and exercise counseling. Assessment & Plan (11/11/2020 2:20 PM CDT): BMI Follow-up includes: nutrition counseling, exercise counseling and education provided. Assessment & Plan (01/03/2019 3:24 PM CDT): BMI Follow-up includes: nutrition counseling, exercise counseling and education provided. Assessment & Plan (09/22/2018 3:54 PM TELEVISION PRODUCTION ASSISTANT): BMI Follow-up includes: nutrition counseling, exercise counseling and education provided. Encourage diet and exercise Assessment & Plan (08/20/2017 8:32 AM TELEVISION PRODUCTION ASSISTANT): BMI Follow-up includes: nutrition counseling, exercise counseling and education provided. Palpitations 08/20/2017 Assessment & Plan (08/20/2017 8:45 AM TELEVISION PRODUCTION ASSISTANT): Well controlled on Bystolic. Only very rarely. Previously correlated to PVCs. Continue follow up with Dr. Washburn and continue Bystolic. Low back pain 08/20/2017 Assessment & Plan (02/22/2020 6:26 PM CDT): History of back surgery Takes tramadol p.r.n. for pain as he is allergic to other analgesics Assessment & Plan (08/20/2017 8:46 AM TELEVISION PRODUCTION ASSISTANT): H/o discectomy. Well controlled on tramadol 1-2 pills per day. Will continue. Pt with severe allergy to NSAIDS. Ventricular premature beats 03/29/2015 Hyperlipidemia 10/12/2014 Overview (12/03/2016): Hyperlipemia Assessment & Plan (11/10/2022 8:08 AM CDT): Lipid panel today Continue atorvastatin 40 Assessment & Plan (12/12/2021 10:22 AM CDT): Lipid panel today Continue atorvastatin Assessment & Plan (11/11/2020 5:27 PM CDT): Continue atorvastatin 40 Lipid panel today Assessment & Plan (09/28/2019 3:34 PM TELEVISION PRODUCTION ASSISTANT): We will recheck a fasting f lipid profile in the next week Assessment & Plan (01/03/2019 3:49 PM CDT): Reviewed his last lipid profile I think we can safely follow him at this time continue on atorvastatin for Assessment & Plan (09/22/2018 3:55 PM TELEVISION PRODUCTION ASSISTANT): Recheck a fasting lipid profile in the near future. Assessment & Plan (08/20/2017 8:45 AM TELEVISION PRODUCTION ASSISTANT): Last LDL was 81 04/2016. Will check lipid panel today. Continue atorvastatin 3x a week. Ephelides 10/11/2014 Skin neoplasm 10/11/2014 Adverse effect of drug 03/28/2014 Anaphylaxis 03/28/2014 Hypertension 01/13/2014 Overview (12/04/2016): HYPERTENSION NOS Assessment & Plan (11/10/2022 4:02 PM CDT): BP well controlled Continue amlodipine 10, hctz 25, bystolic 40 D/c azilsartan 80 due to lack of coverage Previous reactions to valsartan and olmesartan Start irbesartan 300 Assessment & Plan (07/20/2022 10:36 AM TELEVISION PRODUCTION ASSISTANT): Patient appears to be having allergic reaction to the valsartan. I think it is the in the tablet. Stop the valsartan start with Edarbi we are going to start with 40 mg for 2 weeks and then increase to 80 if need be. Assessment & Plan (05/12/2022 10:28 AM CDT): BP elevated today but generally well controlled Continue amlodipine 10, hctz 25, bystolic 40, valsartan 160 BID Assessment & Plan (12/12/2021 10:37 AM CDT): BP well controlled Continue current regimen Monitor at home and send readings in 1 week Assessment & Plan (11/11/2020 5:27 PM CDT): BP well controlled Continue amlodipine 10, valsartan 160, Bystolic 20, and hydrochlorothiazide 25 daily Assessment & Plan (02/22/2020 6:27 PM CDT): BP above goal today though generally well controlled Continue qxqtrbinin-ukclwjquc-OBBG 10-160-25 Assessment & Plan (11/24/2019 9:42 AM CDT): Well controlled on current regimen Assessment & Plan (09/28/2019 3:34 PM TELEVISION PRODUCTION ASSISTANT): Well controlled on current regimen Assessment & Plan (01/03/2019 3:49 PM CDT): A controlled on current regimen Assessment & Plan (08/20/2017 8:44 AM TELEVISION PRODUCTION ASSISTANT): Well controlled. Continue current regimen of bystolic, amlodipine, valsartan and HCTZ. Resolved Problems Problem Noted Date Diagnosed Date Resolved Date AICHA (acute kidney injury) 02/10/2022 Assessment & Plan (02/10/2022 6:22 PM CDT): Repeat BMP today Type 2 diabetes mellitus with hyperglycemia 02/09/2022 05/12/2022 Type 2 diabetes mellitus, wi thout long-term current use of insulin 11/09/2019 05/12/2022 Assessment & Plan (02/10/2022 6:23 PM CDT): Just took first dose of Ozempic today in office out of concern for having allergic reaction. Tolerated medication well Will repeat A1c next visit Assessment & Plan (12/12/2021 12:52 PM CDT): A1c today Continue jardiance 25, metformin XR 500 Foot exam today without neuropathy Encouraged to schedule eye exam Follow up 6 months Assessment & Plan (11/11/2020 5:28 PM CDT): A1c today Continue Jardiance 25 and metformin XR 500 Urine micral/cr today Follow up 6 months Assessment & Plan (05/27/2020 5:46 PM CDT): Repeat A1c today Increase Metformin to 1000mg Continue Jardiance 25 Referral for eye exam sent Assessment & Plan (02/22/2020 6:31 PM CDT): A1c above goal, repeat today Continue Jardiance 25, metformin 500 daily Urine micral/cr today Foot exam today without neuropathy Referred for eye exam Follow up 3 months BMI 31.0-31.9,adult 09/28/2019 11/12/19 21 Overview (09/28/2019): BMI Follow-up includes: nutrition counseling, exercise counseling and education provided. Assessment & Plan (05/27/2020 3:26 PM CDT): BMI Follow-up includes: nutrition counseling, exercise counseling and education provided. Assessment & Plan (02/22/2020 3:21 PM CDT): BMI Follow-up includes: nutrition counseling, exercise counseling and education provided. Assessment & Plan (11/09/2019 2:43 PM CDT): BMI Follow-up includes: nutrition counseling, exercise counseling and education provided. Elevated blood sugar 01/03/2019 020 Assessment & Plan (11/24/2019 9:43 AM CDT): A1c in June was 9.0, begin with metformin, Jardiance 25 we will see him in late September, patient will need aggressive management of his diabetes including weight loss Assessment & Plan (09/28/2019 3:35 PM TELEVISION PRODUCTION ASSISTANT): A1c in June was 9.0, begin with metformin, Jardiance 25 we will see him in late September Snoring 09/22/2018 02/22/2020 Assessment & Plan (11/24/2019 9:42 AM CDT): He is diagnosed with obstructive sleep apnea continues on CPAP Assessment & Plan (09/22/2018 3:53 PM TELEVISION PRODUCTION ASSISTANT): He is very concerned about the possibility of sleep apnea states he snores, states he stops breathing, states he is very fatigued during the day he has a Mallampati 3 score at this point we will get him started with a sleep evaluation Preventative health care 08/20/2017 Immunizations Immunization Administration Dates Next Due Influenza, Quadrivalent, Spl it, Preservative Free, Intramuscular 05/27/2020 Influenza, Unspecified 11/10/2022(Deferr ed: Patient Refused),06/22/2018(Deferred: Patient Refused),08/20/2017(Deferred: Patient Refused),08/20/2017(Deferred: Patient Refused) Moderna SARS-CoV-2 Monovalen t Vaccination (12+ YRS) 01/27/2022,08/11/2021,11/19/2020,10/29 Tdap 11/10/2022 Medical History Medical History Date Comments Hx Other Medical 2006 Herniater Disc 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 Anaphylactic shock Anaphylaxis - (Added by TW Conv) Family History Medical History Relation Name Comments Coronary artery disease Mother Fami ly history of coronary artery disease - (Added by TW Conv) Diabetes Mother Family history of diabetes mellitus - (Added by TW Conv) Heart attack Mother Family history of heart attack - (Added by TW Conv) Heart failure Mother Family history of heart failure - (Added by TW Conv) Hypertension Mother Family history of hypertension - (Added by TW Conv) Sudden Cardiac Mother Family history of sudden cardiac - (Added by TW Conv) Heart disease Other 3 Heart disease; Diabetes Other 4 Diabetes mellit us; Relation Name Status Comments Mother Other 1 Alive Other 2 Alive Other 3 Other 4 Social History Tobacco Use Types Packs/Day Years Used Date Smoking Tobacco: Former Cigarettes Smokeless Tobacco: Former Chew Tobacco Cessation:Counseling Given: Not Answered Comments:quit 2008 Alcohol Use Standard Drinks/Week Comments No 0 (1 standard drink = 0.6 oz pur e alcohol) quit 1998 AUDIT-C Answer Date Recorded Q1: How often do you have a drink containing alc ohol? 2-3 times a week 11/10/2022 Q2: How many drinks containi ng alcohol do you have on a typical day when you are drinking? 1 or 2 11/10/2022 Q3: How often do you have si x or more drinks on one occasion? Never 11/10/2022 PHQ-2 Answer Date Recorded PHQ-2 Total Score 0 11/10/2022 Sex and Gender Information Value Date Recorded Sex Assigned at Not on file Legal Sex Male 1:03 PM TELEVISION PRODUCTION ASSISTANT Gender Identity Male 02/13/2019 5:28 PM CDT Sexual Orientation Straight 02/13/2019 5: 28 PM CDT Obstetrics History Last Filed Vital Signs Vital Sign Reading Time Taken Comments Blood Pressure 186/80 06/16/2024 9:04 AM CDT Pulse 98 06/16/2024 9:04 AM CDT Temperature 37.1 C (98.7 F) 05/26/2023 10:31 AM CDT Respiratory Rate 20 11/10/2022 2:50 PM CDT Oxygen Saturation 100% 06/16/2024 9:04 AM CDT Inhaled Oxygen Concentration - - Weight 108.4 kg (239 lb) 06/16/2024 9:04 AM CDT Height 180.3 cm (5' 11 ) 06/16/2024 9:04 AM CDT Body Mass Index 33.33 06/16/2024 9:04 AM CDT Plan of Treatment Health Maintenance Due Date Last Done Comments Colon Cancer Screening-Colonoscopy 1967 Hepatitis C Screening 1967 Dilated Eye Exam 1967 Hepatitis B Screening 1985 Pneumococcal vaccine <65 (1 of 2 - PCV) 1986 Zoster Vaccine (1 of 2) 2017 Hemoglobin A1C 05/13/2023 11/10/2022, 11/28, 11/11/2020, Additional history exists Albumin Creatinine Ratio, Urine 11/11/2023 11/10/2022, 12/12/2021, 11/11/2020, Additional history exists Depression Screening 11/11/2023 11/10/2022, 07/20/2022, 05/12/2022, Additional history exists Foot Exam 11/11/2023 11/10/2022, 11/28, 02/22/2020 Lipid Panel 11/11/2023 11/10/2022, 11/28, 11/11/2020, Additional history exists Regular Well Visit/Exam 18-64 11/11/2023, 12/12/2021, 11/11/2020, Additional history exists eGFR 11/11/2023 11/10/2022, 01/28, 12/12/2021, Additional history exists Covid-19 Vaccine (5 - 2023-2 5 season) 2024 01/27/2022, 08/11/2021, 11/19/2020, Additional history exists Influenza Vaccine (#1) 2024 05/27/2020 Prostate Cancer Screening-PSA 11/10/2024, 11/18/2018, 08/20/2017 DTaP/Tdap/Td Vaccine (2 - Td or Tdap) 11/10/2032 11/10/2022 Procedures Procedure Name Priority Date/Time Associated Diagnosis Comments EGFR Routine 11/10/2022 4:15 PM CDT Hyperlipidemia, unspecified hyperlipidemia type HEMOGLOBIN A1C Routine 11/10/2022 4:15 PM CDT Type 2 diabetes mellitus with stage 3b chronic kidney disease, without long-term current use of insulin (HCC) LIPID PANEL Routine 11/10/2022 4:15 PM CDT Hyperlipidemia, unspecified hyperlipidemia type ALBUMIN CREATININE RATIO, URINE Routine 11/10/2022 4:15 PM CDT Type 2 diabetes mellitus with stage 3b chronic kidney disease, without long-term current use of insulin (HCC) PSA SCREEN Routine 11/10/2022 4:15 PM CDT Encounter for screening for malignant neoplasm of prostate from Last 3 Months or Most Recently Relevant to Health Maintenance Results * eGFR (11/10/2022 4:15 PM CDT) eGFR 36 mL/min/1. 73 m2 [facility] Comment: Interpretive Data Reference Interval Normal >/= 90 mL/min/1.73m2 Mildly decreased* 60 - 89 mL/min/1.73m2 Mildly to moderately decreased 45 - 59 mL/min/1.73m2 Moderately to severely decreased 30 - 44 mL/min/1.73m2 Severely decreased 15 - 29 mL/min/1.73m2 Kidney Failure < 15 mL/min/1.73m2 *Relative to young adult level Estimated glomerular filtration rate is determined by the 2020 CKD-EPI equation recommended by the National Kidney Foundation (A Unifying Approach to GFR Estimation: Recommendations of the NKF-ASK Task Force on Reassessing the Inclusion of Race in Diagnosing Kidney Disease, JASN 2020). The CKD-EPI equation should not be used for patients with unstable renal function and has not been validated in children and those over 70. Current interpretive data was last reviewed 2021. Blood 11/10/2022 4:15 PM CDT 11/10/2022 5:09 PM CDT Cecily Cornejo MD LAB BLOOD ORDERABLES F inal Result Performing Organization Address [facility] de Phone Number [facility] [address] [facility] [place] [address] * PSA screen (11/10/2022 4:15 PM CDT) PSA-Total 2.50 <=3.90 ng/mL [facility] Comment: Interpretive Data AGE SEX REFERENCE INTERVAL 0 minutes-150 years Female None 0 minutes-49 years Male None 50-59 years Male 0-3.90 60-69 years Male 0-5.40 70-79 years Male 0-6.20 80-150 years Male 0-6.20 The [employer] PSA Total assay procedure was used. Results from different manufacturers or methods may not be comparable. Serial testing should be performed using the same method. Current interpretive data last revised 22. Blood 11/10/2022 4:15 PM CDT 11/10/2022 5:09 PM CDT Cecily Cornejo MD LAB BLOOD ORDERABLES F inal Result Performing Organization Address [facility]/ZIP Co de Phone Number [facility] [address] [facility] [place] [address] * (ABNORMAL) Albumin Creatinine Ratio, Urine (11/10/2022 4:15 PM CDT) Albumin Ur 312.3 mg/L [facility]ANTASMA MCQUEEN Comment: Interpretive Data No reference range established. Current interpretive data was last revised 2019. Testing performed by: [facility], [address] [place] [address]., [id number] Creatinine Ur 96.4 mg/dL FANTASMA MCQUEEN Comment: Interpretive Data No reference range established. Current interpretive data was last revised 2019. Testing performed by: [facility], [address] [place] [address]., [id number] Albumin Creatinine Ratio, Ur 324(H) 1 - 29 mg/g FANTASMA MCQUEEN Comment:Testing performed by : [facility], [address] [place] [address]., [id number] Urine 11/10/2022 4:15 PM CDT 11/10/2022 8:17 PM CDT Cecily Cornejo MD LAB URINE ORDERABLES F inal Result Performing Organization Address [facility] Phone Number [facility] [id number] [facility] [place] [address] * (ABNORMAL) Hemoglobin A1c (11/10/2022 4:15 PM CDT) Hgb A1C 7.8(H) 4.0 - 5.6 % [facility]ANTASMA MCQUEEN Estimated Average Glucose 177 mg/dL [facility]AS[facility] MCQUEEN Comment: The ADA recommends reporting an estimated Average Glucose (eAG) with all Hemoglobin A1c results using the equation derived from a study of 507 normal and diabetic adults. Minority populations were underrepresented and children were not included. (Diabetes Care 31:7694-8367, 2008). The eAG is not equivalent to a fasting glucose. Blood 11/10/2022 4:15 PM CDT 11/10/2022 5:09 PM CDT us Cecily Cornejo MD LAB BLOOD ORDERABLES F inal Result [facility] [id number] [facility]. Department [place] [address] * (ABNORMAL) Lipid panel (11/10/2022 4:15 PM CDT) Cholesterol 163 30 - 199 mg/dL [facility]ANTASMA MCQUEEN Comment: Interpretive Data Ages < or = 19 years Acceptable: <170 mg/dL Borderline high: 170-199 mg/dL High: >or= 200 mg/dL Ages > or = 20 years Desirable: <200 mg/dL Borderline high: 200-239 mg/dL High: >or= 240 mg/dL Literature References: 1. Expert Panel on Integrated Guidelines for Cardiovascular Health and Risk Reduction in Children and Adolescents. Pediatrics 2011;128:S213 2. NCEP Expert Panel. Circulation 2004;110:227 Current Interpretive Data was last revised on 2018. Triglycerides 266(H) <=149 mg/dL FANTASMA MCQUEEN Comment: Interpretive Data Ages < or = 9 years Acceptable: <75 mg/dL Borderline high: 75-99 mg/dL High: >or= 100 mg/dL Ages 10 to 20 years Acceptable: <90 mg/dL Borderline high: 90-129 mg/dL High: >or= 130 mg/dL Ages > or = 20 years Desirable: <150 mg/dL Borderline high: 150-199 mg/dL High: 200-499 mg/dL Very high: >or= 499 mg/dL Literature References: 1. Expert Panel on Integrated Guidelines for Cardiovascular Health and Risk Reduction in Children and Adolescents. Pediatrics 2011;128:S213 2. NCEP Expert Panel. Circulation 2004;110:227 Current Interpretive Data was last revised on 2018. HDL 32(L) >=40 mg/dL FANTASMA MCQUEEN Comment: Interpretive Data Ages < or = 19 years Acceptable: >45 mg/dL Borderline low: 40-45 mg/dL Low: <40 mg/dL Ages > or = 20 years Desirable: >or= 60 mg/dL Low: <40 mg/dL Literature References: 1. Expert Panel on Integrated Guidelines for Cardiovascular Health and Risk Reduction in Children and Adolescents. Pediatrics 2011;128:S213 2. NCEP Expert Panel. Circulation 2004;110:227 Current Interpretive Data was last revised on 2018. LDL, calculated 78 <=129 mg/dL FANTASMA MCQUEEN Comment: Interpretive Data Ages < or = 19 years Acceptable: <110 mg/dL Borderline high: 110-129 mg/dL High: >or= 130 mg/dL Ages > or = 20 years Optimal: <100 mg/dL Near optimal: 100-129 mg/dL Borderline high: 130-159 mg/dL High: >160 mg/dL Literature References: 1. Expert Panel on Integrated Guidelines for Cardiovascular Health and Risk Reduction in Children and Adolescents. Pediatrics 2011;128:S213 2. NCEP Expert Panel. Circulation 2004;110:227 Current Interpretive Data was last revised on 2018. Non-HDL Cholesterol 131 mg/dL FANTASMA MCQUEEN Comment: Interpretive Data Ages < or = 19 years Acceptable: <120 mg/dL Borderline high: 120-144 mg/dL High: >145 mg/dL Ages > or = 20 years When triglycerides are >200 mg/dL, Non-HDL cholesterol is a secondary target of therapy with treatment goals that are 30 mg/dL greater than the LDL cholesterol target. Literature References: 1. Expert Panel on Integrated Guidelines for Cardiovascular Health and Risk Reduction in Children and Adolescents. Pediatrics 2011;128:S213 2. NCEP Expert Panel. Circulation 2004;110:227 Current Interpretive Data was last revised on 2018. Chol/HDL ratio 5 FANTASMA MCQUEEN Blood 11/10/2022 4:15 PM CDT 11/10/2022 5:09 PM CDT Cecily Cornejo MD LAB BLOOD ORDERABLES F inal Result [facility] [id number] [facility]. [place] [address] from Last 3 Months or Most Recently Relevant to Health Maintenance Insurance ANTHEM ACCESS ANTHEM ACCESS Member Subscriber Plan / Payer (Ef fective 2021-Present) Name:Travis Salmeron Relation to Subscriber:Self Name:Travis Salmeron Payer ID:[id number] (NAIC) Type:PrivacyProtector Address: [address] [facility]/PPO Address: [address] [address] [place], [place] [address] ANTHEM ACCESS [facility]/PPO Address: [address] [address] [place] [address] Care Teams Homebound Teacher Relationship Specialty Start Date End Date Jacques Hobbs DO [address] [place] [address] PCP - General Family Medicine 06/11/23
--- OUTSIDE RECORDS SUMMARY | 2024-11-08 10:23 | XMS_ITS | Referral Summary ---
Author Organization [facility] Address [address] [address] Care Team Providers Care Buyer Name Role Phone EstelaJacques rg Primary Care [...] BMP today Will request [facility]al dopplers from [facility] BP and BG control Continue jardiance and ARB Continue follow up with nephrology Assessment & Plan (05/12/2022 7:51 AM CDT): Recommend consultation with composition siding worker Referral placed Current moderate episode of major depressive disorder without prior episode 02/10/2022 Assessment & Plan (11/10/2022 4:01 PM CDT): Start fluoxetine 20mg daily Follow up 3 months Assessment & Plan (07/20/2022 10:39 AM JAVA J2EE ARCHITECT): Would like to restart the escitalopram. Prescription [...] provided. Assessment & Plan (07/20/2022 9:26 AM JAVA J2EE ARCHITECT): BMI Follow-up includes: nutrition counseling, exercise counseling [...] provided. Assessment & Plan (09/22/2018 3:54 PM JAVA J2EE ARCHITECT): BMI Follow-up includes: nutrition counseling, exercise counseling and education provided. Encourage diet and exercise Assessment & Plan (08/20/2017 8:32 AM JAVA J2EE ARCHITECT): BMI Follow-up includes: nutrition counseling, exercise counseling and education provided. Palpitations 08/20/2017 Assessment & Plan (08/20/2017 8:45 AM JAVA J2EE ARCHITECT): Well controlled on Bystolic. Only very rarely. Previously correlated to PVCs. Continue follow up with Dr. Washburn and continue Bystolic. Low back pain 08/20/2017 Assessment & Plan (02/22/2020 6:26 PM CDT): History of back surgery Takes tramadol p.r.n. for pain as he is allergic to other analgesics Assessment & Plan (08/20/2017 8:46 AM JAVA J2EE ARCHITECT): H/o discectomy. Well controlled on tramadol 1-2 [...] today Assessment & Plan (09/28/2019 3:34 PM JAVA J2EE ARCHITECT): We will recheck a fasting f lipid profile in the next week Assessment & Plan (01/03/2019 3:49 PM CDT): Reviewed his last lipid profile I think we can safely follow him at this time continue on atorvastatin for Assessment & Plan (09/22/2018 3:55 PM JAVA J2EE ARCHITECT): Recheck a fasting lipid profile in the near future. Assessment & Plan (08/20/2017 8:45 AM JAVA J2EE ARCHITECT): Last LDL was 81 04/2016. Will check [...] 300 Assessment & Plan (07/20/2022 10:36 AM JAVA J2EE ARCHITECT): Patient appears to be having allergic reaction [...] goal today though generally well controlled Continue rtfclmhljf-rxgkmmyaz-HPIY 10-160-25 Assessment & Plan (11/24/2019 9:42 AM CDT): Well controlled on current regimen Assessment & Plan (09/28/2019 3:34 PM JAVA J2EE ARCHITECT): Well controlled on current regimen Assessment & Plan (01/03/2019 3:49 PM CDT): A controlled on current regimen Assessment & Plan (08/20/2017 8:44 AM JAVA J2EE ARCHITECT): Well controlled. Continue current regimen of bystolic, [...] loss Assessment & Plan (09/28/2019 3:35 PM JAVA J2EE ARCHITECT): A1c in June was 9.0, begin with metformin, Jardiance 25 we will see him in late September Snoring 09/22/2018 02/22/2020 Assessment & Plan (11/24/2019 9:42 AM CDT): He is diagnosed with obstructive sleep apnea continues on CPAP Assessment & Plan (09/22/2018 3:53 PM JAVA J2EE ARCHITECT): He is very concerned about the possibility [...] t Vaccination (12+ YRS) 01/27/2022,08/11/2021,11/19/2020,10/29 Tdap 11/10/2022 Social History Tobacco Use Types Packs/Day Years [...] on file Legal Sex Male 1:03 PM JAVA J2EE ARCHITECT Gender Identity Male 02/13/2019 5:28 PM CDT Sexual Orientation Straight 02/13/2019 5: 28 PM CDT Last Filed Vital Signs Vital Sign Reading [...] 06/16/2024 9:04 AM CDT Plan of Treatment Not on file Procedures Procedure Name Priority Date/Time Associated Diagnosis [...] CDT) eGFR 36 mL/min/1. 73 m2 [facility] Comment: Interpretive Data Reference Interval Normal >/= [...] ORDERABLES F inal Result Performing Organization Address [facility] Co de Phone Number [facility] [address] [employer] [place], [place] [phone] * PSA screen (11/10/2022 4:15 PM CDT) PSA-Total 2.50 <=3.90 ng/mL [facility] Comment: Interpretive Data AGE SEX REFERENCE INTERVAL 0 minutes-150 years Female None 0 minutes-49 years Male None 50-59 years Male 0-3.90 60-69 years Male 0-5.40 70-79 years Male 0-6.20 80-150 years Male 0-6.20 The StandardNine PSA Total assay procedure was used. Results from different manufacturers or methods may not be comparable. Serial testing should be performed using the same method. Current interpretive data last revised 22. Blood 11/10/2022 4:15 PM CDT 11/10/2022 5:09 PM CDT Cecily Cornejo MD LAB BLOOD ORDERABLES F inal Result Performing Organization Address [facility] Co de Phone Number [facility] [address] [employer] [address] * (ABNORMAL) Albumin Creatinine Ratio, Urine (11/10/2022 4:15 PM CDT) Albumin Ur 312.3 mg/L [facility] Comment: Interpretive Data No reference range established. Current interpretive data was last revised 2019. Testing performed by: [facility], [address] [place] [address]., [address] Creatinine Ur 96.4 mg/dL [facility] Comment: Interpretive Data No reference range established. Current interpretive data was last revised 2019. Testing performed by: [facility], [address] [place] [address]., [address] Albumin Creatinine Ratio, Ur 324(H) 1 - 29 mg/g [facility] Comment:Testing performed by : [facility], [address] [place] [address]., [address] Urine 11/10/2022 4:15 PM CDT 11/10/2022 8:17 PM CDT Result [facility] Cecily Cornejo MD LAB URINE ORDERABLES F inal Result Performing Organization Address [facility] de Phone Number [facility] [address] [employer]. Department of Laboratories [place], [place] [phone] * (ABNORMAL) Hemoglobin A1c (11/10/2022 4:15 PM CDT) [facility] Signature Hgb A1C 7.8(H) 4.0 - 5.6 % [facility] Estimated Average Glucose 177 mg/dL [facility] Comment: The ADA recommends reporting an estimated Average Glucose (eAG) with all Hemoglobin A1c results using the equation derived from a study of 507 normal and diabetic adults. Minority populations were underrepresented and children were not included. (Diabetes Care 31:1651-8896, 2008). The eAG is not equivalent to a fasting glucose. Blood 11/10/2022 4:15 PM CDT 11/10/2022 5:09 PM CDT Cecily Cornejo MD LAB BLOOD ORDERABLES F inal Result Performing Organization Address [facility] Co de Phone Number [facility] [address] [facility]. Department [place] [address] * (ABNORMAL) Lipid panel (11/10/2022 4:15 PM CDT) [facility] Signature Cholesterol 163 30 - 199 mg/dL FANTASMA [...] LAB BLOOD ORDERABLES F inal Result [facility] [address] [facility]. Department of Laboratories [place], [place] [phone] from Last 3 Months or Most Recently Relevant to Health Maintenance Insurance [facility] ACCESS ANTHEM ACCESS Member Subscriber Plan / Payer (Ef fective 2021-Present) Name:Travis Salmeron Relation to Subscriber:Self Name:Travis Salmeron Payer ID:[id number] ([facility]) Type:[employer] Address: [facility] [id number] [facility]/PPO Address: [address] [address] [place] [address] ANTHEM ACCESS [facility]/PPO Address: [address] [address] [place] [address] Care Teams Buyer Relationship Specialty Start Date End Date Jacques Hobbs DO [address] [place] [address] PCP - General Family Medicine 06/11/23
== END 2024-11-08 09:34 | disposition home or self-care (01) ==
PROVIDERS: PCP Nurse Practitioner Family; Visit Provider Family Medicine
DX: U07.1 COVID-19 (principal); J02.9 Acute pharyngitis, unspecified
CPT/HCPCS: 87637

== ENCOUNTER 2024-11-09 20:02 | Observation (INO) | payer BC, OTHER, SELFPAY ==
[2024-11-09] VITALS (9 sets, daily range): BP systolic 156–223; BP diastolic 64–93; PULSE 67–79; RESP 14–18; TEMP 36.6; O2SAT 94–100; BMI 33.5
--- NOTE | ~2024-11-09 | NM_ITS ---
EXAMINATION: NM lung vent and perfusion DATE: 11/10/2024 14:11 INDICATION: Chest pain. TECHNIQUE: 31.1 mCi Tc-99m DTPA was given for ventilation images. 5.4 mCi Tc-99m MAA was administered intravenously for perfusion images. Scintigraphic images of the chest were obtained. COMPARISON: Chest single view 11/09/2024 FINDINGS: The ventilation images demonstrate small defects in the basilar lower lobes. The perfusion images dem onstrate matched small defects in the basal lower lobes. IMPRESSION: 1. Low probability for pulmonary embolism. Reviewed, dictated and finalized at location L.
--- NOTE | ~2024-11-09 | XR_ITS ---
XR chest 1V portable Ordering provider: Israel Rodriguez MD History: 59 years Male with . chest pain . Comparison: March 15, 2024 FINDINGS: MEDIASTINUM: The cardiac silhouette is slightly enlarged. LUNGS: No effusions or pneumothorax. Minimal Opacification in the left lung base is seen suggestive o f atelectasis versus pneumonia. Clinical correlation advised. OTHER: No free air under the diaphragm. IMPRESSION: Left basilar atelectasis versus pneumonia. Reviewed, dictated and finalized at location A.
--- OUTSIDE RECORDS SUMMARY | 2024-11-09 20:04 | XMS_ITS | Clinical Summary ---
Author Organization [facility] Address [address] [address] Care Team Providers Care Fire Prevention Chief Name Role Phone EstelaJacques rg Primary Care [...] BMP today Will request Renal dopplers from [facility] BP and BG control Continue jardiance and ARB Continue follow up with nephrology Assessment & Plan (05/12/2022 7:51 AM CDT): Recommend consultation with forging machine hand Referral placed Current moderate episode of major depressive disorder without prior episode 02/10/2022 Assessment & Plan (11/10/2022 4:01 PM CDT): Start fluoxetine 20mg daily Follow up 3 months Assessment & Plan (07/20/2022 10:39 AM TRAVELING AUDITOR): Would like to restart the escitalopram. Prescription [...] provided. Assessment & Plan (07/20/2022 9:26 AM TRAVELING AUDITOR): BMI Follow-up includes: nutrition counseling, exercise counseling [...] provided. Assessment & Plan (09/22/2018 3:54 PM TRAVELING AUDITOR): BMI Follow-up includes: nutrition counseling, exercise counseling and education provided. Encourage diet and exercise Assessment & Plan (08/20/2017 8:32 AM TRAVELING AUDITOR): BMI Follow-up includes: nutrition counseling, exercise counseling and education provided. Palpitations 08/20/2017 Assessment & Plan (08/20/2017 8:45 AM TRAVELING AUDITOR): Well controlled on Bystolic. Only very rarely. Previously correlated to PVCs. Continue follow up with Dr. Washburn and continue Bystolic. Low back pain 08/20/2017 Assessment & Plan (02/22/2020 6:26 PM CDT): History of back surgery Takes tramadol p.r.n. for pain as he is allergic to other analgesics Assessment & Plan (08/20/2017 8:46 AM TRAVELING AUDITOR): H/o discectomy. Well controlled on tramadol 1-2 [...] today Assessment & Plan (09/28/2019 3:34 PM TRAVELING AUDITOR): We will recheck a fasting f lipid profile in the next week Assessment & Plan (01/03/2019 3:49 PM CDT): Reviewed his last lipid profile I think we can safely follow him at this time continue on atorvastatin for Assessment & Plan (09/22/2018 3:55 PM TRAVELING AUDITOR): Recheck a fasting lipid profile in the near future. Assessment & Plan (08/20/2017 8:45 AM TRAVELING AUDITOR): Last LDL was 81 04/2016. Will check [...] 300 Assessment & Plan (07/20/2022 10:36 AM TRAVELING AUDITOR): Patient appears to be having allergic reaction [...] goal today though generally well controlled Continue eoitoovide-uliidejim-WCNY 10-160-25 Assessment & Plan (11/24/2019 9:42 AM CDT): Well controlled on current regimen Assessment & Plan (09/28/2019 3:34 PM TRAVELING AUDITOR): Well controlled on current regimen Assessment & Plan (01/03/2019 3:49 PM CDT): A controlled on current regimen Assessment & Plan (08/20/2017 8:44 AM TRAVELING AUDITOR): Well controlled. Continue current regimen of bystolic, [...] loss Assessment & Plan (09/28/2019 3:35 PM TRAVELING AUDITOR): A1c in June was 9.0, begin with metformin, Jardiance 25 we will see him in late September Snoring 09/22/2018 02/22/2020 Assessment & Plan (11/24/2019 9:42 AM CDT): He is diagnosed with obstructive sleep apnea continues on CPAP Assessment & Plan (09/22/2018 3:53 PM TRAVELING AUDITOR): He is very concerned about the possibility [...] on file Legal Sex Male 1:03 PM TRAVELING AUDITOR Gender Identity Male 02/13/2019 5:28 PM CDT [...] ORDERABLES F inal Result Performing Organization Address [facility] de Phone Number [facility] [address] [address] [facility] [place] [address] * PSA screen (11/10/2022 4:15 PM CDT) [...] ORDERABLES F inal Result Performing Organization Address [facility]/ZIP Co de Phone Number [facility] [address] [address] [facility] [place] [address] * (ABNORMAL) Albumin Creatinine Ratio, Urine (11/10/2022 4:15 PM CDT) Albumin Ur 312.3 mg/L [facility] Comment: Interpretive Data No reference range established. Current interpretive data was last revised 2019. Testing performed by: [facility], [address] [place] [address]., [id number] Creatinine Ur 96.4 mg/dL [facility] Comment: Interpretive Data No reference range established. Current interpretive data was last revised 2019. Testing performed by: [facility], [address] [place] [address]., [address] Albumin Creatinine Ratio, Ur 324(H) 1 - 29 mg/g [facility] Comment:Testing performed by : [facility], [address] [place] [address]., [id number] Urine 11/10/2022 4:15 PM CDT 11/10/2022 8:17 PM CDT Cecily Cornejo MD LAB URINE ORDERABLES F inal Result Performing Organization Address [facility] Phone Number [facility] [address] [facility] [facility] [place] [address] * (ABNORMAL) Hemoglobin A1c (11/10/2022 4:15 PM CDT) Hgb A1C 7.8(H) 4.0 - 5.6 % [facility] Estimated Average Glucose 177 mg/dL [facility] Comment: The ADA recommends reporting an estimated Average Glucose (eAG) with all Hemoglobin A1c results using the equation derived from a study of 507 normal and diabetic adults. Minority populations were underrepresented and children were not included. (Diabetes Care 31:4271-3819, 2008). The eAG is not equivalent to a fasting glucose. Blood 11/10/2022 4:15 PM CDT 11/10/2022 5:09 PM CDT us Cecily Cornejo MD LAB BLOOD ORDERABLES F inal Result [facility] [address] [facility]. Department [place] [address] * (ABNORMAL) Lipid panel (11/10/2022 4:15 PM [...] BLOOD ORDERABLES F inal Result [facility] [address] [facility]. Department [place] [address] from Last 3 Months or Most Recently Relevant to Health Maintenance Insurance ANTHEM ACCESS ANTHEM ACCESS Member Subscriber Plan / Payer (Ef fective 2021-Present) Name:Travis Salmeron Relation to Subscriber:Self Name:Travis Salmeron Payer ID:[id number] ([facility]) Type:[employer] Address: [address] [facility] H[facility]/PPO Address: [address] [address] [place] [address] ANTHEM ACCESS [facility] H[facility]/PPO Address: [address] [address] [place] [address] Care Teams Fire Prevention Chief Relationship Specialty Start Date End Date Jacques Hobbs DO [address] [place] [address] PCP - General Family Medicine 06/11/23
--- OUTSIDE RECORDS SUMMARY | 2024-11-09 20:04 | XMS_ITS | Referral Summary ---
Author Organization [facility] Address [address] [address] Care Team Providers Care Adjunct Nursing Faculty Name Role Phone EstelaJacques rg Primary Care [...] BMP today Will request Renal dopplers from [facility] BP and BG control Continue jardiance and ARB Continue follow up with nephrology Assessment & Plan (05/12/2022 7:51 AM CDT): Recommend consultation with customer engagement manager Referral placed Current moderate episode of major depressive disorder without prior episode 02/10/2022 Assessment & Plan (11/10/2022 4:01 PM CDT): Start fluoxetine 20mg daily Follow up 3 months Assessment & Plan (07/20/2022 10:39 AM GROUND SERVICES INSTRUCTOR): Would like to restart the escitalopram. Prescription [...] provided. Assessment & Plan (07/20/2022 9:26 AM GROUND SERVICES INSTRUCTOR): BMI Follow-up includes: nutrition counseling, exercise counseling [...] provided. Assessment & Plan (09/22/2018 3:54 PM GROUND SERVICES INSTRUCTOR): BMI Follow-up includes: nutrition counseling, exercise counseling and education provided. Encourage diet and exercise Assessment & Plan (08/20/2017 8:32 AM GROUND SERVICES INSTRUCTOR): BMI Follow-up includes: nutrition counseling, exercise counseling and education provided. Palpitations 08/20/2017 Assessment & Plan (08/20/2017 8:45 AM GROUND SERVICES INSTRUCTOR): Well controlled on Bystolic. Only very rarely. Previously correlated to PVCs. Continue follow up with Dr. Washburn and continue Bystolic. Low back pain 08/20/2017 Assessment & Plan (02/22/2020 6:26 PM CDT): History of back surgery Takes tramadol p.r.n. for pain as he is allergic to other analgesics Assessment & Plan (08/20/2017 8:46 AM GROUND SERVICES INSTRUCTOR): H/o discectomy. Well controlled on tramadol 1-2 [...] today Assessment & Plan (09/28/2019 3:34 PM GROUND SERVICES INSTRUCTOR): We will recheck a fasting f lipid profile in the next week Assessment & Plan (01/03/2019 3:49 PM CDT): Reviewed his last lipid profile I think we can safely follow him at this time continue on atorvastatin for Assessment & Plan (09/22/2018 3:55 PM GROUND SERVICES INSTRUCTOR): Recheck a fasting lipid profile in the near future. Assessment & Plan (08/20/2017 8:45 AM GROUND SERVICES INSTRUCTOR): Last LDL was 81 04/2016. Will check [...] 300 Assessment & Plan (07/20/2022 10:36 AM GROUND SERVICES INSTRUCTOR): Patient appears to be having allergic reaction [...] goal today though generally well controlled Continue sghsoyabdm-dlvzvrrnw-YRKW 10-160-25 Assessment & Plan (11/24/2019 9:42 AM CDT): Well controlled on current regimen Assessment & Plan (09/28/2019 3:34 PM GROUND SERVICES INSTRUCTOR): Well controlled on current regimen Assessment & Plan (01/03/2019 3:49 PM CDT): A controlled on current regimen Assessment & Plan (08/20/2017 8:44 AM GROUND SERVICES INSTRUCTOR): Well controlled. Continue current regimen of bystolic, [...] loss Assessment & Plan (09/28/2019 3:35 PM GROUND SERVICES INSTRUCTOR): A1c in June was 9.0, begin with metformin, Jardiance 25 we will see him in late September Snoring 09/22/2018 02/22/2020 Assessment & Plan (11/24/2019 9:42 AM CDT): He is diagnosed with obstructive sleep apnea continues on CPAP Assessment & Plan (09/22/2018 3:53 PM GROUND SERVICES INSTRUCTOR): He is very concerned about the possibility [...] on file Legal Sex Male 1:03 PM GROUND SERVICES INSTRUCTOR Gender Identity Male 02/13/2019 5:28 PM CDT [...] CDT) eGFR 36 mL/min/1. [address] [facility] Comment: Interpretive Data Reference Interval Normal >/= [...] ORDERABLES F inal Result Performing Organization Address [facility] Co de Phone Number [facility] [address] [email or web address] [place], [place] [phone] * PSA screen (11/10/2022 4:15 PM CDT) PSA-Total 2.50 <=3.90 ng/mL [facility] Comment: Interpretive Data AGE SEX REFERENCE INTERVAL 0 minutes-150 years Female None 0 minutes-49 years Male None 50-59 years Male 0-3.90 60-69 years Male 0-5.40 70-79 years Male 0-6.20 80-150 years Male 0-6.20 The [employer] PSA Total assay procedure was used. Results from different manufacturers or methods may not be comparable. Serial testing should be performed using the same method. Current interpretive data last revised 22. Blood 11/10/2022 4:15 PM CDT 11/10/2022 5:09 PM CDT Cecily Cornejo MD LAB BLOOD ORDERABLES F inal Result Performing Organization Address [facility] Co de Phone Number [facility] [address] [employer] [email or web address] [address] * (ABNORMAL) Albumin Creatinine Ratio, Urine (11/10/2022 4:15 PM CDT) Albumin Ur 312.3 mg/L [facility] Comment: Interpretive Data No reference range established. Current interpretive data was last revised 2019. Testing performed by: [facility], [address] [place] [address]., [address] Creatinine Ur 96.4 mg/dL [facility] Comment: Interpretive Data No reference range established. Current interpretive data was last revised 2019. Testing performed by: [facility], [address] [place] [address]., [address] Albumin Creatinine Ratio, Ur 324(H) 1 - 29 mg/g [facility] Comment:Testing performed by : [facility], [address] [place] [address]., [address] Urine 11/10/2022 4:15 PM CDT 11/10/2022 8:17 PM CDT Result [facility] Cecily Cornejo MD LAB URINE ORDERABLES F inal Result Performing Organization Address [facility] de Phone Number [facility] [address] [employer]. Department of Laboratories [place], [place] [id number] * (ABNORMAL) Hemoglobin A1c (11/10/2022 4:15 PM CDT) [facility] Signature Hgb A1C 7.8(H) 4.0 - 5.6 % [facility] Estimated Average Glucose 177 mg/dL [facility] Comment: The ADA recommends reporting an estimated Average Glucose (eAG) with all Hemoglobin A1c results using the equation derived from a study of 507 normal and diabetic adults. Minority populations were underrepresented and children were not included. (Diabetes Care 31:3685-4131, 2008). The eAG is not equivalent to a fasting glucose. Blood 11/10/2022 4:15 PM CDT 11/10/2022 5:09 PM CDT Cecily Cornejo MD LAB BLOOD ORDERABLES F inal Result Performing Organization Address [facility] Co de Phone Number [facility] [address] [facility]. [place] [address] * (ABNORMAL) Lipid panel (11/10/2022 4:15 PM CDT) [facility] Signature Cholesterol 163 30 - 199 [...] BLOOD ORDERABLES F inal Result [facility] [address] [facility]. Department of Laboratories [place] [id number] from Last 3 Months or Most Recently Relevant to Health Maintenance Insurance [facility] ACCESS ANTHEM ACCESS Member Subscriber Plan / Payer (Ef fective 2021-Present) Name:Travis Salmeron Relation to Subscriber:Self Name:Travis Salmeron Payer ID:[id number] ([facility]) Type:[employer] Address: [facility] [id number] [facility] H[facility]/PPO Address: [address] [address] [place] [address] ANTHEM ACCESS [facility] H[facility]/PPO Address: [address] [address] [place] [address] Care Teams Adjunct Nursing Faculty Relationship Specialty Start Date End Date Jacques Hobbs DO [address] [place] [address] PCP - General Family Medicine 06/11/23
--- OUTSIDE RECORDS SUMMARY | 2024-11-09 20:04 | XMS_ITS | Encounter Summary ---
Author Organization [facility] Address [address] [place] [address] Phone Care Team Providers Care Instruction Dean Name Role Phone Sj Hernandez MD Primary Care Provider [phone] Cecily Cornejo MD Primary Care Provider Jacques [...] on file Legal Sex Male 1:03 PM [employer] OFFICER Gender Identity Male 02/13/2019 5:28 PM CDT [...] on filedocumented in this encounter Care Teams Instruction Dean Relationship Specialty Start Date End Date Sj Hernandez MD [address] [address] PCP - General 11/27/16 02/21/20 Cecily Cornejo MD [address] [place] [address] PCP - General Internal Medicine 02/22/20 06/10/23 Jacques Hobbs DO [address] [place] [address] PCP - General Family Medicine 06/11/23 documented as of this encounter
--- NOTE | 2024-11-09 20:14 | ECG_ITS ---
Test Date: 2024-11-09 20:22:22 Measurements Intervals [place] Rate: 73 P: 56 RI: 198 QRS: 41 QRSD: 96 T: 69 QT: 379 QTc: 419 Interpretive Statements SINUS RHYTHM Compared to ECG 03/16/2024 00:15:19 Myocardial infarct finding no longer present Electronically Signed On 11-10-2024 16:29:14 CDT by Maurice Velasco M.D.
--- NOTE | 2024-11-09 20:20 | PC.NURSE ---
EKG IN PROGRESS, XRAY AND LAB AT THE BEDSIDE
[2024-11-09 20:33] LABS: Basophils Absolute Auto 0.02 K/mm3 (0.00-0.10); Basophils Percent Auto 0.3 % (0.0-1.0); Eosinophils Absolute Auto 0.38 K/mm3 (0.02-0.50); Eosinophils Percent Auto 5.1 % (1.0-6.0); Hematocrit 44.3 % (40.0-54.0); Hemoglobin 14.6 g/dL (14.0-18.0); Immature Granulocyte Absolute 0.06 K/mm3 (0.00-0.00); Immature Granulocyte Percent A 0.8 % (0.0-0.0); Lymphocytes Absolute Auto 1.49 K/mm3 (1.10-4.50); Lymphocytes Percent Auto 19.8 % (18.0-42.0); Mean Corpuscular Hemoglobin 28.7 pg (27.0-31.0); Mean Corpuscular Volume 87.2 fL (78.0-102.0); Mean Platelet Volume 9.8 fl (8.7-11.0); Monocytes Absolute Auto 0.84 K/mm3 (0.10-0.90); Monocytes Percent Auto 11.2 % (2.0-11.0); Neutrophils Absolute Auto 4.72 K/mm3 (1.70-7.20); Neutrophils Percent Auto 62.8 % (50.0-70.0); Platelet Count Result 172 K/mm3 (150-420); Red Blood Count 5.08 M/mm3 (4.70-6.10); Red Cell Distribution Width 14.3 % (11.6-14.4); White Blood Count 7.5 K/mm3 (4.8-10.8)
--- NOTE | 2024-11-09 20:35 | PC.NURSE ---
PATIENT IS CURRENTLY RESTING ON STRETCHER. AT THE BEDSIDE. CALL LIGHT IN REACH. STATES CHEST PAIN HAS RESOLVED AT THIS TIME.
[2024-11-09 20:48] LABS: INR 0.9; Partial Thromboplastin Time 26.9 Sec (23.9-30.70); Prothrombin Time 10.5 Seconds (9.50-12.1)
[2024-11-09 20:57] LABS: Alanine Aminotransferase 32 U/L (16-63); Albumin Level 3.9 g/dL (3.4-5.0); Alkaline Phosphatase 138 U/L (46-116); Anion Gap 7 mmol/L (4-12); Aspartate Amino Transferase 15 U/L (15-37); Bilirubin,Total 0.3 mg/dL (0.00-1.00); Blood Urea Nitrogen 62 mg/dL (7-18); Calcium 9.4 mg/dL (8.5-10.1); Carbon Dioxide 26 mmol/L (21-32); Chloride 100 mmol/L (98-108); Estimated CRCL calculation 31 ml/min; Estimated Glomerular Filt Rate 22; Glucose 210 mg/dL (70-99); Lipase 76 U/L (16-77); NT Pro B Type Natriuretic Pept 315 pg/mL (0-125); Osmolality Calculated 299 mOsm/kg (285-295); Potassium 4.3 mmol/L (3.5-5.1); Sodium 133 mmol/L (136-145); Total Protein 7.9 g/dL (6.4-8.2); Troponin I 13.7 ng/L (0.00-60.4)
[2024-11-09 21:02] LABS: D Dimer 0.79 mg/L (0.19-0.50)
--- NOTE | 2024-11-09 21:31 | ED_ITS ---
HPI - Chest Pain General Chief Complaint: Chest Pain Stated Complaint: COVID POSITIVE/CHEST PAIN Time Seen by Provider: 11/09/24 20:08 Source: patient and family Mode of arrival: ambulatory Limitations: no limitations History of Present Illness HPI narrative: this is a 59-year-old male presents with chest discomfort this started earlier this evening was rescinded for COVID, has a history of diabetes hypertension hyperlipidemia and chronic kidney disease. The patient had chest discomfort that started earlier this evening currently states that there is no chest pain no shortness of breath no nausea vomiting no diaphoresis. There is no fever chills no abdominal pain no flank pain no dysuria. complaint: chest discomfort Onset (ago): hour(s) Onset: during rest Pain location: left chest and right chest Pain radiation: none Severity: mild Quality: aching Related Data Home Medications ?Medication ?Instructions ?Recorded ?Confirmed ?Last Taken ?Type hydrochlorothiazide 25 mg tablet 25 mg PO 3XW 03/22/24 11/09/24 Unknown History omega 1-vqd-bfl-fish oil 1,000 mg 1 cap PO BID 09/22/24 11/09/24 Unknown History (120 mg-180 mg) capsule (Fish Oil) Allergies Allergy/AdvReac Type Severity Reaction Status Date / Time NSAIDS (Non-Steroidal Allergy Unknown Swelling Verified 11/09/24 20:59 Anti-Inflamma of Lip/Tongue/Throat clopidogrel Allergy Hives Verified 11/09/24 20:59 lidocaine Allergy Hives Verified 11/09/24 20:59 ropivacaine Allergy Hives Verified 11/09/24 20:59 Succinimides Allergy Anaphylactic Verified 11/09/24 20:59 Shock succinylcholine Allergy Anaphylactic Verified 11/09/24 20:59 Shock yellow dye Allergy Hives Verified 11/09/24 20:59 yellow dyes Allergy Unknown Unknown Uncoded 09/29/24 10:33 tartrazine Allergy Unknown Uncoded 09/29/24 10:33 Review of Systems 2 Review of Systems: All systems reviewed & are unremarkable except as noted in HPI and below PMFSH Past Medical History Medical History Chronic kidney disease, stage IV (severe) Depression CKD (chronic kidney disease) GERD (gastroesophageal reflux disease) Type 2 diabetes mellitus Hypertension Carotid stenosis Surgical History Surgical History History of back surgery 2006. Discectomy Previous back surgery History of carotid endarterectomy Family History Family History Father Patient's father is in good health Sibling Patient's sister is in good health Patient's brother is in good health Mother Family history of diabetes mellitus in first degree relative, Onset Age: 64 Patient's mother is Grandparent Family history of heart disease in male family member before age 55 Social History Social History Smoking status: Former smoker Additional smoking assessment comments: Quit 2012. 28 pk year history Lack of Transportation: No Lack of Food: Never True Current Housing: I Have Housing Concerned About Future Housing: No Difficulty Paying Gas/Electric Bills: No Difficulty Paying for Meds: No Currently Unemployed: No Education: Bachelor's Degree Difficulty w/ Childcare or Family Care: No Gender identity (if verbalized by the patient): Male Exam 2 Const: General: healthy appearing and no acute distress Nutritional Appearance: obese Orientation/consciousness: patient oriented x3 HENMT: Head: normal to inspection Neck: Neck: normal visual inspection and no lymphadenopathy Chest: Chest palpation & inspection: normal inspection of the chest Resp: Effort & Inspection: normal respiratory effort Auscultation: clear to auscultation bilaterally Cardio: Rate: regular rate Rhythm: regular rhythm GI: GI Palp: Yes Soft to palpation Auscultation: normal bowel sounds Urinary Catheter: Urinary Catheter: patent and draining Back/Spine/Pelvis: Back: no CVA tenderness Skin: General skin exam: normal color Rashes: no rashes Neuro: General: patient oriented x3 and moves all extremities Extrem: General: normal to inspection, no clubbing, cyanosis or edema and no pedal edema Course Course Emergency Course: Patient positive for COVID had a chest x-ray that shows a pneumonia his white count is within normal range. Does have chronic kidney disease currently his creatinine is 2.98 with a GFR of 22. Has positive D-dimer of 0.78, negative troponin, EKG shows normal sinus rhythm with a BNP of 315. The patient given his kidney function cannot have a contrasted CT. Will admit treat with some ceftriaxone and azithromycin for pneumonia start Lovenox weight based and obtain a V/Q scan in the morning. Vital Signs Vital signs: Vital Signs Temperature 36.6 C 11/09/24 20:02 Pulse Rate 77 11/09/24 20:02 Respiratory Rate 18 11/09/24 20:02 Blood Pressure 223/93 H 11/09/24 20:02 Pulse Oximetry 100 11/09/24 20:02 Oxygen Delivery Room Air 11/09/24 20:02 Temperature 36.6 C 11/09/24 20:02 Pulse Rate 70 11/09/24 20:46 Respiratory Rate 18 11/09/24 20:46 Blood Pressure 158/71 H 11/09/24 20:46 Pulse Oximetry 96 11/09/24 20:46 Oxygen Delivery Room Air 11/09/24 20:46 MDM - Chest Pain Lab Data 11/09/24 20:29 11/09/24 20:29 Labs: Lab Results 11/09/24 Range/Units 20:29 WBC 7.5 (4.8-10.8) K/mm3 RBC 5.08 (4.70-6.10) M/mm3 Hgb 14.6 (14.0-18.0) g/dL Hct 44.3 (40.0-54.0) % MCV 87.2 (78.0-102.0) fL MCH 28.7 (27.0-31.0) pg MCHC 33.0 (32-36) g/dL RDW 14.3 (11.6-14.4) % Plt Count 172 (150-420) K/mm3 MPV 9.8 (8.7-11.0) fl Immature Gran % (Auto) 0.8 H (0.0-0.0) % Neut % (Auto) 62.8 (50.0-70.0) % Lymph % (Auto) 19.8 (18.0-42.0) % [place] % (Auto) 11.2 H (2.0-11.0) % Eos % (Auto) 5.1 (1.0-6.0) % Baso % (Auto) 0.3 (0.0-1.0) % Lymph # (Auto) 1.49 (1.10-4.50) K/mm3 [place] # (Auto) 0.84 (0.10-0.90) K/mm3 Eos # (Auto) 0.38 (0.02-0.50) K/mm3 Baso # (Auto) 0.02 (0.00-0.10) K/mm3 Abs Immat Gran (auto) 0.06 H (0.00-0.00) K/mm3 Absolute Neuts (auto) 4.72 (1.70-7.20) K/mm3 Absolute Nucleated RBC 0.00 (0.00-0.00) K/mm3 Nucleated RBC % 0.0 (0-0.0) % PT 10.5 (9.50-12.1) Seconds INR 0.9 APTT 26.9 (23.9-30.70) Sec D-Dimer 0.79 H* (0.19-0.50) mg/L Sodium 133 L (136-145) mmol/L Potassium 4.3 (3.5-5.1) mmol/L Chloride 100 (98-108) mmol/L Carbon Dioxide 26 (21-32) mmol/L Anion Gap 7 (4-12) mmol/L BUN 62 H (7-18) mg/dL Creatinine 2.98 H (0.70-1.30) mg/dL Estim Creat Clear Calc 31 ml/min Estimated GFR 22 L (59 - ) Glucose 210 H (70-99) mg/dL Calculated Osmolality 299 H (285-295) mOsm/kg Calcium 9.4 (8.5-10.1) mg/dL Total Bilirubin 0.3 (0.00-1.00) mg/dL AST 15 (15-37) U/L ALT 32 (16-63) U/L Alkaline Phosphatase 138 H (46-116) U/L Troponin I 13.7 (0.00-60.4) ng/L NT-Pro-B Natriuret Pep 315 H (0-125) pg/mL Total Protein 7.9 (6.4-8.2) g/dL Albumin 3.9 (3.4-5.0) g/dL Lipase 76 (16-77) U/L Critical Care Time Critical Care Time Critical Care Time: No Discharge Plan Discharge Clinical Impression: Abnormal laboratory test Chronic kidney disease Qualifiers: Chronic kidney disease stage: stage 4 (GFR 15-29) Qualified Code(s): N18.4 - Chronic kidney disease, stage 4 (severe) Pneumonia Qualifiers: Pneumonia type: due to unspecified organism Laterality: right Lung location: u nspecified part of lung Qualified Code(s): J18.9 - Pneumonia, unspecified organism Patient Disposition: Acute Care Hospital Condition: Stable Time of Disposition: 21:39
[2024-11-09] MEDS: SODIUM CHLORIDE 0.9% IV 1,000 ML 999 ML IV CONT (21:32)
[2024-11-09] MEDS: ENOXAPARIN 120 MG/0.8 ML SYRINGE 110 MG SUB-Q (21:33)
--- NOTE | 2024-11-09 21:34 | PC.NURSE ---
PATIENT AMBULATED TO THE BATHROOM
--- NOTE | 2024-11-09 21:45 | PC.NURSE ---
BLOOD CULTURES X 2 OBTAINED
--- NOTE | 2024-11-09 22:07 | PC.NURSE ---
IS BACK WITH CPAP MACHINE. UPDATED AND PATIENT ON CURRENT ROOM ASSIGNMENT
[2024-11-09] MEDS: AZITHROMYCIN 500 MG/NS 250 ML 500 MG/250 ML BAG 250 MG IVPB (22:30)
[2024-11-09] MEDS: SODIUM CHLORIDE 0.9% IV 1,000 ML 100 ML IV CONT (22:30)
--- NOTE | 2024-11-09 22:37 | ADMGEN ---
This patient, Travis Salmeron, was admitted to 2nd Floor Room 226-1. Patient/family oriented to hospital policies and general routines including ID bracelet, bed and alarms, visiting hours, pain management, procedures, bathroom and other care routines, personal items, smoking policy, room service/diet, and visiting hours. Information on how to activate the Rapid Response Team has been discussed. Patient/Family are encouraged to report perceived risks to care and to ask questions if they do not understand what they are told or what they should do.
[2024-11-10] VITALS: BP 180/84; PULSE 69; RESP 18; TEMP 36.6; O2SAT 96
[2024-11-10] MEDS: INSULIN GLARGINE (*BKC) 1,000 UNITS/10 ML VIAL 22 UNITS SUB-Q (00:59)
[2024-11-10 08:00] VITALS: BP 159/109; PULSE 64; RESP 14; TEMP 36.6; O2SAT 97
[2024-11-10 08:45] LABS: Basophils Absolute Auto 0.03 K/mm3 (0.00-0.10); Basophils Percent Auto 0.4 % (0.0-1.0); Eosinophils Absolute Auto 0.39 K/mm3 (0.02-0.50); Eosinophils Percent Auto 5.1 % (1.0-6.0); Hematocrit 42.8 % (40.0-54.0); Hemoglobin 13.9 g/dL (14.0-18.0); Immature Granulocyte Absolute 0.04 K/mm3 (0.00-0.00); Immature Granulocyte Percent A 0.5 % (0.0-0.0); Lymphocytes Absolute Auto 1.56 K/mm3 (1.10-4.50); Lymphocytes Percent Auto 20.4 % (18.0-42.0); Mean Corpuscular HGB Conc 32.5 g/dL (32-36); Mean Corpuscular Hemoglobin 28.5 pg (27.0-31.0); Mean Corpuscular Volume 87.9 fL (78.0-102.0); Mean Platelet Volume 10.1 fl (8.7-11.0); Monocytes Absolute Auto 0.74 K/mm3 (0.10-0.90); Monocytes Percent Auto 9.7 % (2.0-11.0); Neutrophils Absolute Auto 4.89 K/mm3 (1.70-7.20); Neutrophils Percent Auto 63.9 % (50.0-70.0); Platelet Count Result 162 K/mm3 (150-420); Red Blood Count 4.87 M/mm3 (4.70-6.10); Red Cell Distribution Width 14.5 % (11.6-14.4); White Blood Count 7.7 K/mm3 (4.8-10.8)
[2024-11-10 09:05] LABS: Alanine Aminotransferase 26 U/L (16-63); Albumin Level 3.8 g/dL (3.4-5.0); Alkaline Phosphatase 133 U/L (46-116); Anion Gap 12 mmol/L (4-12); Aspartate Amino Transferase < 10 U/L (15-37); Bilirubin,Total 0.3 mg/dL (0.00-1.00); Blood Urea Nitrogen 55 mg/dL (7-18); Calcium 8.8 mg/dL (8.5-10.1); Carbon Dioxide 24 mmol/L (21-32); Chloride 106 mmol/L (98-108); Estimated CRCL calculation 36 ml/min; Estimated Glomerular Filt Rate 26; Glucose 166 mg/dL (70-99); Osmolality Calculated 313 mOsm/kg (285-295); Potassium 4.7 mmol/L (3.5-5.1); Sodium 142 mmol/L (136-145); Total Protein 7.8 g/dL (6.4-8.2)
[2024-11-10 09:05] LABS: Add Urine Microscopic? NO; Appearance Urine Clear (Clear); Bilirubin Urine Negative (Negative); Blood Urine Negative (Negative); Color Urine Light Yellow (Yellow); Glucose Urine UA 3+ (Negative); Ketones Urine Negative (Negative); Leukocyte Esterase Ur Negative LEU/UL (Negative); Nitrate Urine Negative (Negative); Protein Urine Negative (Negative); Specific Grav Ur 1.015 (1.010-1.020); Urobilinogen Urine 0.2 mg/dL (0.2-1.0); pH Urine 5.5 (5.0-8.0)
[2024-11-10 09:11] LABS: Lactic Acid Reflex 1.4 mmol/L (0.4-2.0)
[2024-11-10 09:37] VITALS: PULSE 64
[2024-11-10] MEDS: TERBINAFINE HCL 250 MG TABLET PO (09:37)
[2024-11-10] MEDS: NEBIVOLOL HCL 5 MG TABLET 20 MG PO (09:37)
[2024-11-10] MEDS: OMEGA 3 POLYUNSAT FATTY ACIDS 1 GM CAP PO (09:38)
[2024-11-10] MEDS: IRBESARTAN 150 MG TABLET 300 MG PO (09:38)
[2024-11-10] MEDS: ASPIRIN 325 MG ENTERIC TABLET PO (09:38)
[2024-11-10] MEDS: amLODIPine BESYLATE 5 MG TABLET 10 MG PO (09:39)
[2024-11-10] MEDS: buPROPion HCL XL (24 HR) 150 MG TABCR 300 MG PO (09:39)
[2024-11-10] MEDS: ESCITALOPRAM OXALATE 10 MG TABLET PO (09:40)
[2024-11-10] MEDS: allopurinoL 100 MG TABLET PO (09:40)
[2024-11-10] MEDS: EMPAGLIFLOZIN 10 MG TABLET PO (09:41)
[2024-11-10] MEDS: cloNIDine HCL 0.2 MG TABLET PO (09:41)
[2024-11-10] MEDS: INSULIN HUMAN LISPRO (*BKC) 1,000 UNITS/10 ML VIAL 12 UNITS SUB-Q ×2 (09:50→13:18)
--- NOTE | 2024-11-10 11:23 | P.SS_ITS ---
Same Day Admit/Disch: HPI History of Present Illness Chief complaint: Midsternal discomfort/SOB Narrative: Travis Salmeron is a 59 year old male who presented to the emergency department with complaints of midsternal discomfort, shortness of breath, and nausea. patient reports he was recently diagnosed with COVID-19 3 days prior in presented today for mild shortness of breath and midsternal discomfort. patient reports past medical history of hypertension, diabetes, hyperlipidemia, GERD and anxiety. Patient states he has had episodes like this in the past at which time he had a cardiac workup which included a negative stress test initial troponins in the emergency department were negative with no EKG changes. In the emergency department patient was found to have acute on chronic renal failure as well as an elevated D-dimer. patient's labs otherwise unremarkable except for elevated creatinine in from his baseline and elevated D-dimer there was some concern for possible PE however unable to perform CTA due to CKD. Patient was admitted to the medical unit for observation and V/Q scan in the a.m. to rule out possible PE. patient at time of assessment denied any further chest pain, shortness a breath, nausea or vomiting and was tolerating oral intake. [facility] Past Medical History Medical History Chronic kidney disease, stage IV (severe) Depression CKD (chronic kidney disease) GERD (gastroesophageal reflux disease) Type 2 diabetes mellitus Hypertension Carotid stenosis Surgical History Surgical History History of back surgery 2006. Discectomy Previous back surgery History of carotid endarterectomy Family History Family History Father Patient's father is in good health Sibling Patient's sister is in good health Patient's brother is in good health Mother Family history of diabetes mellitus in first degree relative, Onset Age: 64 Patient's mother is Grandparent Family history of heart disease in male family member before age 55 Social History Social History Smoking status: Former smoker Additional smoking assessment comments: Quit 2012. pk year history Alcohol intake: never Substance use: never Do You Feel Safe in your Home?: Yes Lack of Transportation: No Lack of Food: Never True Current Housing: I Have Housing Concerned About Future Housing: No Difficulty Paying Gas/Electric Bills: No Difficulty Paying for Meds: No Currently Unemployed: No Education: Bachelor's Degree Difficulty w/ Childcare or Family Care: No Gender identity (if verbalized by the patient): Male Spiritual care concerns: No Same Day Admit/Disch: Med Pre-admit Medications Home Medications ?Medication ?Instructions ?Recorded ?Confirmed ?Type aspirin 325 mg tablet,delayed 325 mg PO DAILY #30 tabs 11/27/22 11/09/24 Rx release hydrochlorothiazide 25 mg tablet 25 mg PO DAILY 03/22/24 11/09/24 History blood sugar diagnostic (Accu-Chek #100 ea 07/21/24 11/09/24 Rx Guide test strips) blood-glucose meter #1 ea 07/21/24 11/09/24 Rx lancets (Accu-Chek Softclix #200 ea 07/21/24 11/09/24 Rx Lancets) amlodipine 10 mg tablet See Rx Instructions .Route 09/05/24 11/09/24 Rx .COMPLEX #90 tabs empagliflozin 10 mg tablet See Rx Instructions .Route 09/15/24 11/09/24 Rx (Jardiance) .COMPLEX #30 tabs clonidine HCl 0.1 mg tablet See Rx Instructions .Route 09/18/24 11/09/24 Rx .COMPLEX #180 tabs pen needle, diabetic 31 gauge x #100 ea 10/09/24 11/09/24 Rx 3/16 (BD Ultra-Fine Mini Pen Needle) bupropion HCl 300 mg 24 hr tablet, See Rx Instructions .Route 10/10/24 11/09/24 Rx extended release .COMPLEX #90 tabs irbesartan 300 mg tablet See Rx Instructions .Route 10/11/24 11/09/24 Rx .COMPLEX #90 tabs semaglutide 1 mg/dose (4 mg/3 mL) See Rx Instructions .Route 10/19/24 11/09/24 Rx subcutaneous pen injector (Ozempic) .COMPLEX #3 mL insulin lispro 100 unit/mL 12 unit (0.12 mL) subcut TIDWMEAL 10/24/24 11/09/24 Rx subcutaneous pen #15 mL insulin glargine 100 unit/mL (3 14 unit (0.14 mL) subcut DAILY #15 10/25/24 11/09/24 Rx mL) subcutaneous pen (Lantus mL Solostar U-100 Insulin) atorvastatin 40 mg tablet See Rx Instructions .Route 10/30/24 11/09/24 Rx .COMPLEX #60 tabs blood-glucose sensor (FreeStyle #2 ea 10/30/24 11/09/24 Rx Kavon 3 Sensor device) molnupiravir 200 mg capsule (EUA) 800 mg (4 x 200 mg) PO Q12H 5 days 11/08/24 11/09/24 Rx (Lagevrio) #40 caps allopurinol 100 mg tablet 100 mg PO DAILY 11/09/24 11/09/24 History clonidine HCl 0.2 mg tablet 0.2 mg PO BID 11/09/24 11/09/24 History insulin glargine 100 unit/mL 22 unit subcut HS 11/09/24 11/09/24 History subcutaneous solution (Lantus U-100 Insulin) nebivolol 20 mg tablet (Bystolic) 20 mg PO 3XW 11/09/24 11/09/24 History terbinafine HCl 250 mg tablet 250 mg PO DAILY 11/09/24 11/09/24 History amoxicillin 875 mg-potassium 1 tablet PO Q12H #10 tabs 11/10/24 Rx clavulanate 125 mg tablet escitalopram oxalate 10 mg tablet 10 mg PO DAILY #1 tablet 11/10/24 11/09/24 Rx Review of Systems Review of Systems All systems reviewed & are unremarkable except as noted in HPI and below Exam Const: General: comfortable and no acute distress HENMT: Mouth: Yes moist mucous membranes Eyes: General: appearance normal, both eyes and all related structures Pupils: Equal, round and reactive pupils present Neck: Neck: supple and no JVD Resp: Effort & Inspection: normal respiratory effort Auscultation: clear to auscultation bilaterally Cardio: Rate: regular rate Rhythm: regular rhythm GI: GI Palp: Yes Soft to palpation Auscultation: normal bowel sounds Skin: General skin exam: normal color and no rashes or lesions noted Neuro: General: gait normal Speech: normal speech Sensory Exam: normal sensation Extrem: General: normal to inspection Psych: Mental Status: mental status grossly normal DS: Data Data Completed and Pending Labs on day of discharge: Labs from last 24 hours 11/10/24 11/10/24 11/09/24 08:40 08:12 20:29 WBC 7.7 7.5 RBC 4.87 5.08 Hgb 13.9 L 14.6 Hct 42.8 44.3 MCV 87.9 87.2 MCH 28.5 28.7 MCHC 32.5 33.0 RDW 14.5 H 14.3 Plt Count 162 172 MPV 10.1 9.8 Immature Gran % (Auto) 0.5 H 0.8 H Neut % (Auto) 63.9 62.8 Lymph % (Auto) 20.4 19.8 [place] % (Auto) 9.7 11.2 H Eos % (Auto) 5.1 5.1 Baso % (Auto) 0.4 0.3 Lymph # (Auto) 1.56 1.49 [place] # (Auto) 0.74 0.84 Eos # (Auto) 0.39 0.38 Baso # (Auto) 0.03 0.02 Abs Immat Gran (auto) 0.04 H 0.06 H Absolute Neuts (auto) 4.89 4.72 Absolute Nucleated RBC 0.00 0.00 Nucleated RBC % 0.0 0.0 PT 10.5 INR 0.9 APTT 26.9 D-Dimer 0.79 H* Sodium 142 133 L Potassium 4.7 4.3 Chloride 106 100 Carbon Dioxide 24 26 Anion Gap 12 7 BUN 55 H 62 H Creatinine 2.58 H 2.98 H Estim Creat Clear Calc 36 31 Estimated GFR 26 L 22 L Glucose 166 H 210 H Calculated Osmolality 313 H 299 H Lactic Acid 1.4 Calcium 8.8 9.4 Total Bilirubin 0.3 0.3 AST < 10 L 15 ALT 26 32 Alkaline Phosphatase 133 H 138 H Troponin I 13.7 NT-Pro-B Natriuret Pep 315 H Total Protein 7.8 7.9 Albumin 3.8 3.9 Lipase 76 Urine Color Light yellow Urine Appearance Clear Urine pH 5.5 Ur Specific Richardson 1.015 Urine Protein Negative Urine Glucose (UA) 3+ H Urine Ketones Negative Ur Blood (Man) Negative Urine Nitrate Negative Urine Bilirubin Negative Urine Urobilinogen 0.2 Leukocyte Esterase Rfl Negative Imaging Radiologist's impression: XR chest 1V portable Ordering provider: Israel Rodriguez MD History: 59 years Male with . chest pain . Comparison: March 15, 2024 FINDINGS: MEDIASTINUM: The cardiac silhouette is slightly enlarged. LUNGS: No effusions or pneumothorax. Minimal Opacification in the left lung base is seen suggestive of atelectasis versus pneumonia. Clinical correlation advised. OTHER: No free air under the diaphragm. IMPRESSION: Left basilar atelectasis versus pneumonia. DS: Summary Hospital Course Reason for hospitalization: Pneumonia/COVID/R/O PE/Acute on chronic renal failure Hospital Course: Admission: Travis Salmeron is a 59 year old male who presented to the emergency department with complaints of midsternal discomfort, shortness of breath, and nausea. patient reports he was recently diagnosed with COVID-19 3 days prior in presented today for mild shortness of breath and midsternal discomfort. patient reports past medical history of hypertension, diabetes, hyperlipidemia, GERD and anxiety. Patient states he has had episodes like this in the past at which time he had a cardiac workup which included a negative stress test initial troponins in the emergency department were negative with no EKG changes. In the emergency department patient was found to have acute on chronic renal failure as well as an elevated D-dimer with negative troponins and no EKG changes. patient's labs otherwise unremarkable except for elevated creatinine in from his baseline and elevated D-dimer there was some concern for possible PE however unable to perform CTA due to CKD. Patient was admitted to the medical unit for observation and V/Q scan in the a.m. to rule out possible PE. patient at time of assessment denied any further chest pain, shortness a breath, nausea or vomiting and was tolerating oral intake. Patient seen following day continued to deny any further chest discomfort, shortness a breath, nausea, vomiting. patient had received IV fluids overnight in renal function improved back to baseline V/Q scan was performed which showed low probability of PE elevated D-dimer likely secondary to patient CKD and current COVID infection. CXR had some suspicion for possible pneumonia versus atelectasis in he had been started on IV antibiotics. after discussion with patient in reviewing midsternal discomfort symptoms patient reports it is intermittent and is been happening for a few years he had reported symptoms came on after he had just eaten [employer] as possible some concern for cholelithiasis however lipase was negative provided patient with order for outpatient ultrasound of gallbladder and encouraged low-fat diet. patient during hospitalization remained on room air and afebrile labs unremarkable other than renal function which had improved. patient was then discharged home on oral antibiotic therapy for suspicious pneumonia instructed on supportive care for COVID-19 into follow-up with primary care physician in 2 weeks. Patient acknowledged and agreed with discharge plan and patient was discharged home. Status at Discharge Functional status at discharge: independent ambulation Overall status at discharge: patient is back to baseline Time Spent with Patient Time attestation: Total time spent providing and/or coordinating discharge services: Time spent: Greater than 30 minutes DS: Admitting Diagnosis Discharge Date 11/10/2024 Admitting Diagnosis Pneumonia/COVID/R/O PE/ acute on chronic renal failure DS: Discharge Diagnosis Discharge Diagnosis (1) Hypertension: Code(s): I10 - Essential (primary) hypertension Status: Acute (2) Dyslipidemia: Code(s): E78.5 - Hyperlipidemia, unspecified Status: Acute (3) Type 2 diabetes mellitus: Code(s): E11.9 - Type 2 diabetes mellitus without complications Status: Acute (4) GERD (gastroesophageal reflux disease): Code(s): K21.9 - Gastro-esophageal reflux disease without esophagitis Status: Acute (5) Pneumonia: Qualifiers: Laterality: right Lung location: unspecified part of lung Pneumonia type: due to unspecified organism Qualified Code(s): J18.9 - Pneumonia, unspecified organism Code(s): J18.9 - Pneumonia, unspecified organism Status: Acute (6) COVID: Code(s): U07.1 - COVID-19 Status: Acute (7) Chronic kidney disease, stage IV (severe): Code(s): N18.4 - Chronic kidney disease, stage 4 (severe) Status: Acute Plan Disposition: Discharge to home Discharge Plan Discharge Attending physician on discharge: Edwin Barrera Consulting providers: Merle Jones Discharging Clinician: Merle Jones Anticipated Discharge Date/Time: 11/10/24 11:10 Patient Disposition: Home, Self-Care Activity: may shower and as tolerated Diet: heart healthy and low cholesterol Discharge Instructions: COVID: * Supportive care manage symptoms at home * acetaminophen for fever pain * hydration as tolerated * activity as tolerated suspicion for pneumonia noted on chest x-ray * I have prescribed antibiotic therapy please complete as indicated even if feeling better Midsternal discomfort * Cardiac was r/o during hospitalization due to symptoms post high fat meal I have included an order for outpatient ultrasound to evaluate your gallbladder this can be followed up O/P with your primary care physician. How can you care for yourself at home? ? Keep track of any new symptoms or changes in your symptoms. ? Rest until you feel better. ? Be safe with medicines. Take your medicines exactly as prescribed. Call your doctor if you think you are having a problem with your medicine. ? Do not drive after taking a prescription pain medicine. ? Ensure to follow-up with primary care physician as indicated and provide updated medication list provided to you at discharge. When should you call for help? Call 911 anytime you think you may need emergency care. For example, call if: ? You passed out (lost consciousness). Call your doctor now or seek immediate medical care if: ? You have new symptoms like fever, difficulty breathing, Chest pain, vomiting, or rash. ? You have new or different pain. ? You are confused and are having trouble thinking clearly. ? Your symptoms are getting worse. Watch closely for changes in your health, and be sure to contact your doctor if: ? You do not get better as expected. Patient Instructions: Antibiotic Form, Amoxicillin/Clavulanate Potassium (By mouth), Low Fat Diet (DC), Fall Prevention for Older Adults (DC), Community Acquired Pneumonia (DC), COVID-19 (Coronavirus Disease 2019) (DC) Patient Language: Armenian Stand Alone Forms: General Discharge Information Follow-up/Referrals: Jonas Lee APRN [Primary Care Provider] - 2 weeks Discharge Medications: New amoxicillin-pot clavulanate 875-125 mg tablet 1 tablet PO Q12H Qty: 10 0RF Continued insulin glargine [Lantus U-100 Insulin] 100 unit/mL solution 22 unit subcut HS terbinafine HCl 250 mg tablet 250 mg PO DAILY allopurinol 100 mg tablet 100 mg PO DAILY clonidine HCl 0.2 mg tablet 0.2 mg PO BID nebivolol [Bystolic] 20 mg tablet 20 mg PO 3XW Rx Instructions: Take on Wednesday, Wednesday, Wednesday hydrochlorothiazide 25 mg tablet 25 mg PO DAILY aspirin 325 mg tablet,delayed release (DR/EC) 325 mg PO DAILY Qty: 30 0RF (DME) blood-glucose meter Kit See Rx Instructions .ROUTE .MEDSUPPLY Qty: 1 0RF Rx Instructions: ACHS (DME) lancets [Accu-Chek Softclix Lancets] Misc See Rx Instructions .Route Qty: 200 1RF Rx Instructions: ACHS (DME) Accu-Chek Guide test strips Strip See Rx Instructions .ROUTE .MEDSUPPLY Qty: 100 2RF Rx Instructions: ACHS amlodipine 10 mg tablet See Rx Instructions .ROUTE .COMPLEX Qty: 90 1RF Dose Instruction: TAKE 1 TABLET BY MOUTH EVERY DAY Rx Instructions: TAKE 1 TABLET BY MOUTH EVERY DAY Jardiance 10 mg tablet See Rx Instructions .ROUTE .COMPLEX Qty: 30 2RF Dose Instruction: TAKE 1 TABLET BY MOUTH EVERY DAY IN THE MORNING Rx Instructions: TAKE 1 TABLET BY MOUTH EVERY DAY IN THE MORNING clonidine HCl 0.1 mg tablet See Rx Instructions .ROUTE .COMPLEX Qty: 180 1RF Dose Instruction: TAKE 1 TABLET BY MOUTH TWICE A DAY Rx Instructions: TAKE 1 TABLET BY MOUTH TWICE A DAY (DME) pen needle, diabetic [BD Ultra-Fine Mini Pen Needle] 31 gauge x 3/16 needle See Rx Instructions .ROUTE .COMPLEX Qty: 100 2RF Dose Instruction: USE DIRECTED TO INJECT INSULIN 3 TIMES A DAY Rx Instructions: USE DIRECTED TO INJECT INSULIN 3 TIMES A DAY bupropion HCl 300 mg tablet extended release 24 hr See Rx Instructions .ROUTE .COMPLEX Qty: 90 0RF Dose Instruction: TAKE 1 TABLET BY MOUTH IN THE MORNING Rx Instructions: TAKE 1 TABLET BY MOUTH IN THE MORNING irbesartan 300 mg tablet See Rx Instructions .ROUTE .COMPLEX Qty: 90 2RF Dose Instruction: TAKE 1 TABLET BY MOUTH EVERY DAY AT NIGHT Rx Instructions: TAKE 1 TABLET BY MOUTH EVERY DAY AT NIGHT Ozempic 1 mg/dose (4 mg/3 mL) pen injector See Rx Instructions .ROUTE .COMPLEX Qty: 3 0RF Dose Instruction: INJECT 1MG SUBCUTANEOUSLY ONCE WEEKLY FOR 1 MONTH Patient Comments: takes on Mondays Rx Instructions: INJECT 1MG SUBCUTANEOUSLY ONCE WEEKLY FOR 1 MONTH insulin lispro 100 unit/mL insulin pen 12 unit subcut TIDWMEAL Qty: 15 0RF insulin glargine [Lantus Solostar U-100 Insulin] 100 unit/mL (3 mL) insulin pen 14 unit subcut DAILY Qty: 15 3RF Patient Comments: 22 units at noc (DME) FreeStyle Kavon 3 Sensor Device See Rx Instructions .ROUTE .COMPLEX Qty: 2 0RF Dose Instruction: USE TO CHECK SUGAR BEFORE MEALS AND AT BEDTIME. CHANGE EVERY 2 WEEKS Rx Instructions: USE TO CHECK SUGAR BEFORE MEALS AND AT BEDTIME. CHANGE EVERY 2 WEEKS atorvastatin 40 mg tablet See Rx Instructions .ROUTE .COMPLEX Qty: 60 1RF Dose Instruction: TAKE 1 TABLET (40 MG TOTAL) BY MOUTH 3 (THREE) TIMES A WEEK Patient Comments: Wednesday, Wednesday, Wednesday Rx Instructions: TAKE 1 TABLET (40 MG TOTAL) BY MOUTH 3 (THREE) TIMES A WEEK Lagevrio (EUA) 200 mg capsule 800 mg PO Q12H 5 Days Qty: 40 0RF Changed escitalopram oxalate 10 mg tablet 10 mg PO DAILY Qty: 1 0RF Dose Instruction: TAKE 1 TABLET BY MOUTH EVERY DAY Discontinued omega 8-[id number]-fish oil [Fish Oil] 1,000 (120-180) mg capsule 1 cap PO BID tramadol 50 mg tablet 50 mg PO Q8H PRN (Reason: pain) Qty: 20 0RF Other Ambulatory Orders: US abdomen limited (Routine) Timeframe: 2 Weeks Location: Determined by Patient Ordered By: Merle Jones Date of admission: 11/09/24 21:40 Primary Care Provider: Jonas Lee Admitting Provider: Edwin Barrera Attending physician on admission: Edwin Barrera Condition: Stable Quality VTE Prophylaxis VTE prophylaxis: pharmacologic ordered -Patient's previous records reviewed on admission -ER notes reviewed in detail on admission -discussed all findings and current treatment plan with patient/Family/POA -Consultations reviewed for recommendations -Patient's disposition for safe discharge discussed with caser up Dictation performed by [employer] direct speech recognition software, therefore supervisor shipping room variants and typographical errors may occur. Hospitalist MIPS Advance Care Plan I have confirmed that the patient's Advanced Care Plan is present, code status is documented, or surrogate decision maker is listed in patient medical record.: Yes Medication Reconciliation I have utilized all available resources to obtain, update and review the patients current medications (includes all prescriptions, OTC, herbals, cannabis, and nutritional supplements).: Yes The patient is not eligible for med reconciliation; the patient is in a emergent medical situation where delaying treatment would jeopardize the patients health.: No Heart Failure (Exclusion) Patient has history of Heart Transplant or Left Ventricular Assistive Device?: No IF YES, STOP HERE Heart Failure (Qualifier) Patient has current or prior documentation of LVEF less than or equal to 40%, or mod/servere depressed LVSF?: No IF NO, STOP HERE
[2024-11-10] MEDS: ATORVASTATIN 40 MG TABLET PO (13:19)
--- NOTE | 2024-11-10 14:19 | PC.NURSE ---
TEST DESK SUPERVISOR aware of Radiology results. She informs he can go ahead with discharge.
--- NOTE | 2024-11-10 15:00 | PC.NURSE ---
Pt discharged to home with family care. VSS. Discharge instructions given to pt and spouse. New medication, AMOXICILLIN, instructions given to pt and spouse. PT and spouse verbalized understanding of all instructions. Pt taken to family car via WC by RN.
--- NOTE | 2024-11-13 08:37 | PC.NURSE ---
Called patient to inquire on how he was after discharge. No answer, did not leave voicemail.
--- NOTE | 2024-11-13 14:53 | PC.NURSE ---
Spoke the Travis. He informs he understood all discharge instructions, thanks facility for helping him through. He informs he still has a cough on occasion but he feels much better.
== END 2024-11-10 14:55 | disposition home or self-care (01) ==
LOC: CHSED 21:39 → CHS2ND 22:03
PROVIDERS: Nurse Practitioner Family; Admitting Provider Internal Medicine; Emergency Provider Emergency Medicine; PCP Nurse Practitioner Family; Visit Provider Internal Medicine
DX: U07.1 COVID-19 (principal); J18.9 Pneumonia, unspecified organism; E11.22 Type 2 diabetes mellitus with diabetic chronic kidney disease; I12.9 Hypertensive chronic kidney disease with stage 1 through stage 4 chronic kidney disease, or unspecified chronic kidney disease; N18.4 Chronic kidney disease, stage 4 (severe); N17.9 Acute kidney failure, unspecified; K21.9 Gastro-esophageal reflux disease without esophagitis; F32.A Depression, unspecified; F41.9 Anxiety disorder, unspecified; R79.1 Abnormal coagulation profile; Z79.4 Long term (current) use of insulin; Z87.891 Personal history of nicotine dependence; Z79.82 Long term (current) use of aspirin; Z79.84 Long term (current) use of oral hypoglycemic drugs; Z79.85 Long-term (current) use of injectable non-insulin antidiabetic drugs; Z79.899 Other long term (current) drug therapy; Z98.890 Other specified postprocedural states
CPT/HCPCS: 36415; 71045; 78582; 80053; 81003; 83605; 83690; 83880; 84484; 85025; 85380; 85610; 85730; 87040; 93005; 96361; 96365; 96367; 96372; 96375; 99285; A9567; A9270; A9540; G0378; J0456; J0696; J1650; J1815; J7030

== ENCOUNTER 2024-12-01 08:35 | Outpatient (CLI) | payer BC, OTHER, SELFPAY ==
--- NOTE | ~2024-12-01 | US_ITS ---
Limited Abdominal Sonogram: Real-time sonographic imaging of the right upper quadrant was performed. Clinical History: Hyperlipidemia Findings: The liver appears echogenic, with no evidence of mass lesion or bile duct dilatation. Live r measures 17.1 cm in length. Main portal vein demonstrates normal direction of flow. The gallbladder is well distended, and appears normal with no evidence of gallstone or wall thickening. The common b ile duct measures 3 mm. The visualized pancreas, aorta, and IVC are unremarkable. Impression: Diffuse fatty infiltration of the liver. Associated mild hepatomegaly. Reviewed, dictated and finalized at location . Impression: Diffuse fatty infiltration of the liver. Associated mild hepatomegaly.
--- OUTSIDE RECORDS SUMMARY | 2024-12-01 08:41 | XMS_ITS | Clinical Summary ---
Author Organization [facility] Address [address] [address] Care Team Providers Care Block Engraver Name Role Phone EstelaJacques rg Primary Care [...] BMP today Will request Renal dopplers from [facility] BP and BG control Continue jardiance and ARB Continue follow up with nephrology Assessment & Plan (05/12/2022 7:51 AM CDT): Recommend consultation with cardiovascular physician assistant Referral placed Current moderate episode of major depressive disorder without prior episode 02/10/2022 Assessment & Plan (11/10/2022 4:01 PM CDT): Start fluoxetine 20mg daily Follow up 3 months Assessment & Plan (07/20/2022 10:39 AM BUSINESS SOLUTIONS DIRECTOR): Would like to restart the escitalopram. Prescription [...] provided. Assessment & Plan (07/20/2022 9:26 AM BUSINESS SOLUTIONS DIRECTOR): BMI Follow-up includes: nutrition counseling, exercise counseling [...] provided. Assessment & Plan (09/22/2018 3:54 PM BUSINESS SOLUTIONS DIRECTOR): BMI Follow-up includes: nutrition counseling, exercise counseling and education provided. Encourage diet and exercise Assessment & Plan (08/20/2017 8:32 AM BUSINESS SOLUTIONS DIRECTOR): BMI Follow-up includes: nutrition counseling, exercise counseling and education provided. Palpitations 08/20/2017 Assessment & Plan (08/20/2017 8:45 AM BUSINESS SOLUTIONS DIRECTOR): Well controlled on Bystolic. Only very rarely. Previously correlated to PVCs. Continue follow up with Dr. Washburn and continue Bystolic. Low back pain 08/20/2017 Assessment & Plan (02/22/2020 6:26 PM CDT): History of back surgery Takes tramadol p.r.n. for pain as he is allergic to other analgesics Assessment & Plan (08/20/2017 8:46 AM BUSINESS SOLUTIONS DIRECTOR): H/o discectomy. Well controlled on tramadol 1-2 [...] today Assessment & Plan (09/28/2019 3:34 PM BUSINESS SOLUTIONS DIRECTOR): We will recheck a fasting f lipid profile in the next week Assessment & Plan (01/03/2019 3:49 PM CDT): Reviewed his last lipid profile I think we can safely follow him at this time continue on atorvastatin for Assessment & Plan (09/22/2018 3:55 PM BUSINESS SOLUTIONS DIRECTOR): Recheck a fasting lipid profile in the near future. Assessment & Plan (08/20/2017 8:45 AM BUSINESS SOLUTIONS DIRECTOR): Last LDL was 81 04/2016. Will check [...] 300 Assessment & Plan (07/20/2022 10:36 AM BUSINESS SOLUTIONS DIRECTOR): Patient appears to be having allergic reaction [...] goal today though generally well controlled Continue [id number] [id number] Assessment & Plan (11/24/2019 9:42 AM CDT): Well controlled on current regimen Assessment & Plan (09/28/2019 3:34 PM BUSINESS SOLUTIONS DIRECTOR): Well controlled on current regimen Assessment & Plan (01/03/2019 3:49 PM CDT): A controlled on current regimen Assessment & Plan (08/20/2017 8:44 AM BUSINESS SOLUTIONS DIRECTOR): Well controlled. Continue current regimen of bystolic, amlodipine, valsartan and HCTZ. Resolved Problems Problem Noted Date Diagnosed Date Resolved Date IACHA (acute kidney injury) 02/10/2022 Assessment & Plan [...] loss Assessment & Plan (09/28/2019 3:35 PM BUSINESS SOLUTIONS DIRECTOR): A1c in June was 9.0, begin with metformin, Jardiance 25 we will see him in late September Snoring 09/22/2018 02/22/2020 Assessment & Plan (11/24/2019 9:42 AM CDT): He is diagnosed with obstructive sleep apnea continues on CPAP Assessment & Plan (09/22/2018 3:53 PM BUSINESS SOLUTIONS DIRECTOR): He is very concerned about the possibility [...] on file Legal Sex Male 1:03 PM BUSINESS SOLUTIONS DIRECTOR Gender Identity Male 02/13/2019 5:28 PM CDT [...] ORDERABLES F inal Result Performing Organization Address [facility] de Phone Number [facility] [address] [facility] [place] [address] * PSA screen (11/10/2022 4:15 PM CDT) [...] ORDERABLES F inal Result Performing Organization Address [facility]/ZIP Co de Phone Number [facility] [address] [facility] [place] [address] * (ABNORMAL) Albumin Creatinine Ratio, Urine (11/10/2022 4:15 PM CDT) Albumin Ur 312.3 mg/L [facility] Comment: Interpretive Data No reference range established. Current interpretive data was last revised 2019. Testing performed by: [facility], [address] [place] [address]., [id number] Creatinine Ur 96.4 mg/dL [facility] Comment: Interpretive Data No reference range established. Current interpretive data was last revised 2019. Testing performed by: [facility], [address] [place] [address]., [id number] Albumin Creatinine Ratio, Ur 324(H) 1 - 29 mg/g [facility] Comment:Testing performed by : [facility], [address] [place] [address]., [id number] Urine 11/10/2022 4:15 PM CDT 11/10/2022 8:17 PM CDT Cecily Cornejo MD LAB URINE ORDERABLES F inal Result Performing Organization Address [facility] Phone Number [facility] [address] [facility] [place] [address] * (ABNORMAL) Hemoglobin A1c (11/10/2022 4:15 PM CDT) Hgb A1C 7.8(H) 4.0 - 5.6 % [facility] Estimated Average Glucose 177 mg/dL [facility] Comment: The ADA recommends reporting an estimated Average Glucose (eAG) with all Hemoglobin A1c results using the equation derived from a study of 507 normal and diabetic adults. Minority populations were underrepresented and children were not included. (Diabetes Care 31:3876-1645, 2008). The eAG is not equivalent to a fasting glucose. Blood 11/10/2022 4:15 PM CDT 11/10/2022 5:09 PM CDT us Cecily Cornejo MD LAB BLOOD ORDERABLES F inal Result [facility] [address] [facility]. [place] [address] * (ABNORMAL) Lipid panel (11/10/2022 4:15 PM [...] BLOOD ORDERABLES F inal Result [facility] [address] [facility]. [place] [address] from Last 3 Months or Most Recently Relevant to Health Maintenance Insurance ANTHEM ACCESS ANTHEM ACCESS Member Subscriber Plan / Payer (Ef fective 2021-Present) Name:Travis Salmeron Relation to Subscriber:Self Name:Travis Salmeron Payer ID:[id number] (NAIC) Type:[email or web address] Address: [address] CHOICE PLUS ANTHEM ACCESS [facility] CHOICE PLUS Care Teams Block Engraver Relationship Specialty Start Date End Date Jacques Hobbs DO [address] [place] [address] PCP - General Family Medicine 06/11/23
--- OUTSIDE RECORDS SUMMARY | 2024-12-01 08:41 | XMS_ITS | Referral Summary ---
Author Organization [facility] Address [address] [address] Care Team Providers Care Insemination Worker Name Role Phone EstelaJacques rg Primary Care [...] BMP today Will request Renal dopplers from [facility] BP and BG control Continue jardiance and ARB Continue follow up with nephrology Assessment & Plan (05/12/2022 7:51 AM CDT): Recommend consultation with life agent Referral placed Current moderate episode of major depressive disorder without prior episode 02/10/2022 Assessment & Plan (11/10/2022 4:01 PM CDT): Start fluoxetine 20mg daily Follow up 3 months Assessment & Plan (07/20/2022 10:39 AM OFFICE MACHINE REPAIR SHOP SUPERVISOR): Would like to restart the escitalopram. Prescription [...] provided. Assessment & Plan (07/20/2022 9:26 AM OFFICE MACHINE REPAIR SHOP SUPERVISOR): BMI Follow-up includes: nutrition counseling, exercise counseling [...] provided. Assessment & Plan (09/22/2018 3:54 PM OFFICE MACHINE REPAIR SHOP SUPERVISOR): BMI Follow-up includes: nutrition counseling, exercise counseling and education provided. Encourage diet and exercise Assessment & Plan (08/20/2017 8:32 AM OFFICE MACHINE REPAIR SHOP SUPERVISOR): BMI Follow-up includes: nutrition counseling, exercise counseling and education provided. Palpitations 08/20/2017 Assessment & Plan (08/20/2017 8:45 AM OFFICE MACHINE REPAIR SHOP SUPERVISOR): Well controlled on Bystolic. Only very rarely. Previously correlated to PVCs. Continue follow up with Dr. Washburn and continue Bystolic. Low back pain 08/20/2017 Assessment & Plan (02/22/2020 6:26 PM CDT): History of back surgery Takes tramadol p.r.n. for pain as he is allergic to other analgesics Assessment & Plan (08/20/2017 8:46 AM OFFICE MACHINE REPAIR SHOP SUPERVISOR): H/o discectomy. Well controlled on tramadol 1-2 [...] today Assessment & Plan (09/28/2019 3:34 PM OFFICE MACHINE REPAIR SHOP SUPERVISOR): We will recheck a fasting f lipid profile in the next week Assessment & Plan (01/03/2019 3:49 PM CDT): Reviewed his last lipid profile I think we can safely follow him at this time continue on atorvastatin for Assessment & Plan (09/22/2018 3:55 PM OFFICE MACHINE REPAIR SHOP SUPERVISOR): Recheck a fasting lipid profile in the near future. Assessment & Plan (08/20/2017 8:45 AM OFFICE MACHINE REPAIR SHOP SUPERVISOR): Last LDL was 81 04/2016. Will check [...] 300 Assessment & Plan (07/20/2022 10:36 AM OFFICE MACHINE REPAIR SHOP SUPERVISOR): Patient appears to be having allergic reaction [...] goal today though generally well controlled Continue cddixprfkj-nopmynsbk-KDED 10-160-25 Assessment & Plan (11/24/2019 9:42 AM CDT): Well controlled on current regimen Assessment & Plan (09/28/2019 3:34 PM OFFICE MACHINE REPAIR SHOP SUPERVISOR): Well controlled on current regimen Assessment & Plan (01/03/2019 3:49 PM CDT): A controlled on current regimen Assessment & Plan (08/20/2017 8:44 AM OFFICE MACHINE REPAIR SHOP SUPERVISOR): Well controlled. Continue current regimen of bystolic, [...] loss Assessment & Plan (09/28/2019 3:35 PM OFFICE MACHINE REPAIR SHOP SUPERVISOR): A1c in June was 9.0, begin with metformin, Jardiance 25 we will see him in late September Snoring 09/22/2018 02/22/2020 Assessment & Plan (11/24/2019 9:42 AM CDT): He is diagnosed with obstructive sleep apnea continues on CPAP Assessment & Plan (09/22/2018 3:53 PM OFFICE MACHINE REPAIR SHOP SUPERVISOR): He is very concerned about the possibility [...] on file Legal Sex Male 1:03 PM OFFICE MACHINE REPAIR SHOP SUPERVISOR Gender Identity Male 02/13/2019 5:28 PM CDT [...] CDT) eGFR 36 mL/min/1. 73 m2 [facility] Comment: Interpretive Data Reference Interval Normal [...] ORDERABLES F inal Result Performing Organization Address [facility] Co de Phone Number [facility] [phone] [employer] Estate Manager. [employer] [place], [place] [id number] * PSA screen (11/10/2022 4:15 PM CDT) PSA-Total 2.50 <=3.90 ng/mL [facility]AS[facility]QUE[facility] Comment: Interpretive Data AGE SEX REFERENCE INTERVAL 0 minutes-150 years Female None 0 minutes-49 years Male None 50-59 years Male 0-3.90 60-69 years Male 0-5.40 70-79 years Male 0-6.20 80-150 years Male 0-6.20 The [employer] PSA Total assay procedure was used. Results from different manufacturers or methods may not be comparable. Serial testing should be performed using the same method. Current interpretive data last revised 22. Blood 11/10/2022 4:15 PM CDT 11/10/2022 5:09 PM CDT Cecily Cornejo MD LAB BLOOD ORDERABLES F inal Result Performing Organization Address [facility] Co de Phone Number [facility] [phone] Personal Estate Manager [employer] [place] [address] * (ABNORMAL) Albumin Creatinine Ratio, Urine (11/10/2022 4:15 PM CDT) Albumin Ur 312.3 mg/L [facility] Comment: Interpretive Data No reference range established. Current interpretive data was last revised 2019. Testing performed by: [facility], [address] [place] [address]., [id number] Creatinine Ur 96.4 mg/dL [facility] Comment: Interpretive Data No reference range established. Current interpretive data was last revised 2019. Testing performed by: [facility], [address] [place] [address]., [id number] Albumin Creatinine Ratio, Ur 324(H) 1 - 29 mg/g [facility] Comment:Testing performed by : [facility], [address] [place] [address]., [id number] Urine 11/10/2022 4:15 PM CDT 11/10/2022 8:17 PM CDT Result [facility] Cecily Cornejo MD LAB URINE ORDERABLES F inal Result Performing Organization Address [facility] de Phone Number [facility] [phone] Personal Estate Manager. Department of Laboratories [place], [place] [phone] * (ABNORMAL) Hemoglobin A1c (11/10/2022 4:15 PM CDT) [facility] Signature Hgb A1C 7.8(H) 4.0 - 5.6 % [facility] MC[facility] Estimated Average Glucose 177 mg/dL [facility] Comment: The ADA recommends reporting an estimated Average Glucose (eAG) with all Hemoglobin A1c results using the equation derived from a study of 507 normal and diabetic adults. Minority populations were underrepresented and children were not included. (Diabetes Care 31:8911-1011, 2008). The eAG is not equivalent to a fasting glucose. Blood 11/10/2022 4:15 PM CDT 11/10/2022 5:09 PM CDT Cecily Cornejo MD LAB BLOOD ORDERABLES F inal Result Performing Organization Address [facility] Co de Phone Number [facility] [address] [facility]. [place] [address] * (ABNORMAL) Lipid panel (11/10/2022 4:15 PM CDT) [facility] Signature Cholesterol 163 30 - 199 mg/dL [...] BLOOD ORDERABLES F inal Result [facility] [address] [facility]. Department of Laboratories [place], [place] [id number] from Last 3 Months or Most Recently Relevant to Health Maintenance Insurance [facility] ACCESS ANTHEM ACCESS Member Subscriber Plan / Payer (Ef fective 2021-Present) Name:Travis Salmeron Relation to Subscriber:Self Name:Travis Salmeron Payer ID:[id number] ([facility]) Type:[employer] Address: [facility] [id number] CHOICE PLUS [facility] HMO/PPO Address: [address] [address] [place] [address] ANTHEM ACCESS [facility] CHOICE PLUS [facility] HMO/PPO Address: [address] [address] [place] [address] Care Teams Insemination Worker Relationship Specialty Start Date End Date Jacques Hobbs DO [address] [place] [address] PCP - General Family Medicine 06/11/23
--- OUTSIDE RECORDS SUMMARY | 2024-12-01 08:41 | XMS_ITS | Encounter Summary ---
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
== END 2024-12-01 08:36 | disposition home or self-care (01) ==
PROVIDERS: PCP Nurse Practitioner Family; Visit Provider Nurse Practitioner Family
DX: E78.5 Hyperlipidemia, unspecified (principal); R07.89 Other chest pain; K21.9 Gastro-esophageal reflux disease without esophagitis; K76.0 Fatty (change of) liver, not elsewhere classified
CPT/HCPCS: 76705

== ENCOUNTER 2024-12-06 22:13 | Emergency (ER) | payer BC, OTHER, SELFPAY ==
--- NOTE | ~2024-12-06 | XR_ITS ---
XR chest 1V portable Ordering provider: Zhang Pérez MD History: 59 years Male with . UPPER chest pain . Comparison: November 09, 2024 FINDINGS: MEDIASTINUM: The cardiac silhouette is moderately enlarged. LUNGS: No infiltrates, effusions or pneumothorax. Slightly prominent bronchovascular markings in the right and left lower lobes. Possible nodule in the right upper lobe measuring 1.2 cm which is most li nitin granuloma. OTHER: No free air under the diaphragm. IMPRESSION: Cardiomegaly. No acute cardiopulmonary pathology. Reviewed, dictated and finalized at location A.
--- NOTE | 2024-12-06 22:10 | ECG_ITS ---
Test Date: 2024-12-06 22:18:36 Measurements Intervals [place] Rate: 75 P: 39 [place]: 186 QRS: 34 QRSD: 98 T: 58 QT: 384 QTc: 431 Interpretive Statements SINUS RHYTHM BORDERLINE ST ABNORMALITY- HIGH LATERAL LEADS BASELINE ARTIFACT- I, II, III, AVR, AVL, AVF, V1, V6 BORDERLINE ECG Compared to ECG 11/09/2024 20:22:22 NO SIGNIFICANT CHANGE Electronically Signed On 12-07-2024 14:22:40 CDT by Olegario Sung D.O.
--- OUTSIDE RECORDS SUMMARY | 2024-12-06 22:16 | XMS_ITS | Referral Summary ---
Author Organization [facility] Address [address] [address] Care Team Providers Care Long Goods Drier Name Role Phone EstelaJacques rg Primary Care [...] BMP today Will request Renal dopplers from [facility] BP and BG control Continue jardiance and ARB Continue follow up with nephrology Assessment & Plan (05/12/2022 7:51 AM CDT): Recommend consultation with senior enterprise architect Referral placed Current moderate episode of major depressive disorder without prior episode 02/10/2022 Assessment & Plan (11/10/2022 4:01 PM CDT): Start fluoxetine 20mg daily Follow up 3 months Assessment & Plan (07/20/2022 10:39 AM MEDICARE SALES EXECUTIVE): Would like to restart the escitalopram. Prescription [...] provided. Assessment & Plan (07/20/2022 9:26 AM MEDICARE SALES EXECUTIVE): BMI Follow-up includes: nutrition counseling, exercise counseling [...] provided. Assessment & Plan (09/22/2018 3:54 PM MEDICARE SALES EXECUTIVE): BMI Follow-up includes: nutrition counseling, exercise counseling and education provided. Encourage diet and exercise Assessment & Plan (08/20/2017 8:32 AM MEDICARE SALES EXECUTIVE): BMI Follow-up includes: nutrition counseling, exercise counseling and education provided. Palpitations 08/20/2017 Assessment & Plan (08/20/2017 8:45 AM MEDICARE SALES EXECUTIVE): Well controlled on Bystolic. Only very rarely. Previously correlated to PVCs. Continue follow up with Dr. Washburn and continue Bystolic. Low back pain 08/20/2017 Assessment & Plan (02/22/2020 6:26 PM CDT): History of back surgery Takes tramadol p.r.n. for pain as he is allergic to other analgesics Assessment & Plan (08/20/2017 8:46 AM MEDICARE SALES EXECUTIVE): H/o discectomy. Well controlled on tramadol 1-2 [...] today Assessment & Plan (09/28/2019 3:34 PM MEDICARE SALES EXECUTIVE): We will recheck a fasting f lipid profile in the next week Assessment & Plan (01/03/2019 3:49 PM CDT): Reviewed his last lipid profile I think we can safely follow him at this time continue on atorvastatin for Assessment & Plan (09/22/2018 3:55 PM MEDICARE SALES EXECUTIVE): Recheck a fasting lipid profile in the near future. Assessment & Plan (08/20/2017 8:45 AM MEDICARE SALES EXECUTIVE): Last LDL was 81 04/2016. Will check [...] 300 Assessment & Plan (07/20/2022 10:36 AM MEDICARE SALES EXECUTIVE): Patient appears to be having allergic reaction [...] goal today though generally well controlled Continue [id number] 10-160-25 Assessment & Plan (11/24/2019 9:42 AM CDT): Well controlled on current regimen Assessment & Plan (09/28/2019 3:34 PM MEDICARE SALES EXECUTIVE): Well controlled on current regimen Assessment & Plan (01/03/2019 3:49 PM CDT): A controlled on current regimen Assessment & Plan (08/20/2017 8:44 AM MEDICARE SALES EXECUTIVE): Well controlled. Continue current regimen of bystolic, [...] loss Assessment & Plan (09/28/2019 3:35 PM MEDICARE SALES EXECUTIVE): A1c in June was 9.0, begin with metformin, Jardiance 25 we will see him in late September Snoring 09/22/2018 02/22/2020 Assessment & Plan (11/24/2019 9:42 AM CDT): He is diagnosed with obstructive sleep apnea continues on CPAP Assessment & Plan (09/22/2018 3:53 PM MEDICARE SALES EXECUTIVE): He is very concerned about the possibility [...] on file Legal Sex Male 1:03 PM MEDICARE SALES EXECUTIVE Gender Identity Male 02/13/2019 5:28 PM CDT [...] CDT) eGFR 36 mL/min/1. 73 m2 [facility] Comment: Interpretive Data Reference Interval Normal >/= [...] F inal Result Performing Organization Address [facility] Co de Phone Number [facility] [address] [employer] [place], [place] [phone] * PSA screen (11/10/2022 4:15 PM CDT) PSA-Total 2.50 <=3.90 ng/mL [facility] Comment: Interpretive Data AGE SEX REFERENCE INTERVAL 0 minutes-150 years Female None 0 minutes-49 years Male None 50-59 years Male 0-3.90 60-69 years Male 0-5.40 70-79 years Male 0-6.20 80-150 years Male 0-6.20 The Nearpod PSA Total assay procedure was used. Results from different manufacturers or methods may not be comparable. Serial testing should be performed using the same method. Current interpretive data last revised 22. Blood 11/10/2022 4:15 PM CDT 11/10/2022 5:09 PM CDT Cecily Cornejo MD LAB BLOOD ORDERABLES F inal Result Performing Organization Address [facility] Co de Phone Number [facility] [address] [place] [address] * (ABNORMAL) Albumin Creatinine Ratio, Urine (11/10/2022 4:15 PM CDT) Albumin Ur 312.3 mg/L [facility] Comment: Interpretive Data No reference range established. Current interpretive data was last revised 2019. Testing performed by: [facility], [address] [place] [address]., [address] Creatinine Ur 96.4 mg/dL [facility] Comment: Interpretive Data No reference range established. Current interpretive data was last revised 2019. Testing performed by: [facility], [address] [place] [address]., [address] Albumin Creatinine Ratio, Ur 324(H) 1 - 29 mg/g [facility] Comment:Testing performed by : [facility], [address] [place] [address]., [address] Urine 11/10/2022 4:15 PM CDT 11/10/2022 8:17 PM CDT Result [facility] Cecily Cornejo MD LAB URINE ORDERABLES F inal Result Performing Organization Address [facility] de Phone Number [facility] [address] [employer]. Department of Laboratories [place], [place] [phone] * (ABNORMAL) Hemoglobin A1c (11/10/2022 4:15 PM CDT) [facility] Signature Hgb A1C 7.8(H) 4.0 - 5.6 % [facility] Estimated Average Glucose 177 mg/dL [facility] Comment: The ADA recommends reporting an estimated Average Glucose (eAG) with all Hemoglobin A1c results using the equation derived from a study of 507 normal and diabetic adults. Minority populations were underrepresented and children were not included. (Diabetes Care 31:6324-5727, 2008). The eAG is not equivalent to a fasting glucose. Blood 11/10/2022 4:15 PM CDT 11/10/2022 5:09 PM CDT Cecily Cornejo MD LAB BLOOD ORDERABLES F inal Result Performing Organization Address [facility] Co de Phone Number [facility] [address] [facility]. Department [place] [address] * (ABNORMAL) Lipid panel (11/10/2022 4:15 PM CDT) [facility] Signature Cholesterol 163 30 - [...] BLOOD ORDERABLES F inal Result [facility] [address] [facility]. Department of Laboratories [place], [place] [phone] from Last 3 Months or Most Recently Relevant to Health Maintenance Insurance [facility] ACCESS ANTHEM ACCESS Member Subscriber Plan / Payer (Ef fective 2021-Present) Name:Travis Salmeron Relation to Subscriber:Self Name:Travis Salmeron Payer ID:[id number] ([facility]) Type:my3Dreams Address: [facility] [id number] CHOICE PLUS ANTHEM ACCESS [facility] CHOICE PLUS Care Teams Long Goods Drier Relationship Specialty Start Date End Date Jacques oHbbs DO [address] [place] [address] PCP - General Family Medicine 06/11/23
--- OUTSIDE RECORDS SUMMARY | 2024-12-06 22:16 | XMS_ITS | Encounter Summary ---
Author Organization 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
--- OUTSIDE RECORDS SUMMARY | 2024-12-06 22:16 | XMS_ITS | Clinical Summary ---
Author Organization [facility] Address [address] [address] Care Team Providers Care Chief Of Police Name Role Phone EstelaJacques rg Primary Care [...] BMP today Will request Renal dopplers from [facility] BP and BG control Continue jardiance and ARB Continue follow up with nephrology Assessment & Plan (05/12/2022 7:51 AM CDT): Recommend consultation with entry specialist Referral placed Current moderate episode of major depressive disorder without prior episode 02/10/2022 Assessment & Plan (11/10/2022 4:01 PM CDT): Start fluoxetine 20mg daily Follow up 3 months Assessment & Plan (07/20/2022 10:39 AM STONE BELT SANDER): Would like to restart the escitalopram. Prescription [...] following surgery on the circulatory system 05/10/2020 OSEML on CPAP 11/09/2019 Assessment & Plan (11/10/2022 [...] provided. Assessment & Plan (07/20/2022 9:26 AM STONE BELT SANDER): BMI Follow-up includes: nutrition counseling, exercise counseling [...] provided. Assessment & Plan (09/22/2018 3:54 PM STONE BELT SANDER): BMI Follow-up includes: nutrition counseling, exercise counseling and education provided. Encourage diet and exercise Assessment & Plan (08/20/2017 8:32 AM STONE BELT SANDER): BMI Follow-up includes: nutrition counseling, exercise counseling and education provided. Palpitations 08/20/2017 Assessment & Plan (08/20/2017 8:45 AM STONE BELT SANDER): Well controlled on Bystolic. Only very rarely. Previously correlated to PVCs. Continue follow up with Dr. Washburn and continue Bystolic. Low back pain 08/20/2017 Assessment & Plan (02/22/2020 6:26 PM CDT): History of back surgery Takes tramadol p.r.n. for pain as he is allergic to other analgesics Assessment & Plan (08/20/2017 8:46 AM STONE BELT SANDER): H/o discectomy. Well controlled on tramadol 1-2 [...] today Assessment & Plan (09/28/2019 3:34 PM STONE BELT SANDER): We will recheck a fasting f lipid profile in the next week Assessment & Plan (01/03/2019 3:49 PM CDT): Reviewed his last lipid profile I think we can safely follow him at this time continue on atorvastatin for Assessment & Plan (09/22/2018 3:55 PM STONE BELT SANDER): Recheck a fasting lipid profile in the near future. Assessment & Plan (08/20/2017 8:45 AM STONE BELT SANDER): Last LDL was 81 04/2016. Will check [...] 300 Assessment & Plan (07/20/2022 10:36 AM STONE BELT SANDER): Patient appears to be having allergic reaction [...] goal today though generally well controlled Continue [id number]-[id number] 10-160-25 Assessment & Plan (11/24/2019 9:42 AM CDT): Well controlled on current regimen Assessment & Plan (09/28/2019 3:34 PM STONE BELT SANDER): Well controlled on current regimen Assessment & Plan (01/03/2019 3:49 PM CDT): A controlled on current regimen Assessment & Plan (08/20/2017 8:44 AM STONE BELT SANDER): Well controlled. Continue current regimen of bystolic, amlodipine, valsartan and HCTZ. Resolved Problems Problem Noted Date Diagnosed Date Resolved Date ACIHA (acute kidney injury) 02/10/2022 Assessment & Plan [...] loss Assessment & Plan (09/28/2019 3:35 PM STONE BELT SANDER): A1c in June was 9.0, begin with metformin, Jardiance 25 we will see him in late September Snoring 09/22/2018 02/22/2020 Assessment & Plan (11/24/2019 9:42 AM CDT): He is diagnosed with obstructive sleep apnea continues on CPAP Assessment & Plan (09/22/2018 3:53 PM STONE BELT SANDER): He is very concerned about the possibility [...] on file Legal Sex Male 1:03 PM STONE BELT SANDER Gender Identity Male 02/13/2019 5:28 PM CDT [...] ORDERABLES F inal Result Performing Organization Address [facility] de Phone Number [facility] [address] [facility] [place] [address] * PSA screen (11/10/2022 4:15 PM CDT) [...] ORDERABLES F inal Result Performing Organization Address [facility]/ZIP Co de Phone Number [facility] [address] [facility] [place] [address] * (ABNORMAL) Albumin Creatinine Ratio, Urine (11/10/2022 4:15 PM CDT) Albumin Ur 312.3 mg/L [facility] Comment: Interpretive Data No reference range established. Current interpretive data was last revised 2019. Testing performed by: [facility], [address] [place] [address]., [address] Creatinine Ur 96.4 mg/dL [facility] Comment: Interpretive Data No reference range established. Current interpretive data was last revised 2019. Testing performed by: [facility], [address] [place] [address]., [address] Albumin Creatinine Ratio, Ur 324(H) 1 - 29 mg/g [facility] Comment:Testing performed by : [facility], [address] [place] [address]., [address] Urine 11/10/2022 4:15 PM CDT 11/10/2022 8:17 PM CDT Cecily Cornejo MD LAB URINE ORDERABLES F inal Result Performing Organization Address [facility] [address] [facility] [place] [address] * (ABNORMAL) Hemoglobin A1c (11/10/2022 4:15 PM CDT) Hgb A1C 7.8(H) 4.0 - 5.6 % [facility] Estimated Average Glucose 177 mg/dL [facility] Comment: The ADA recommends reporting an estimated Average Glucose (eAG) with all Hemoglobin A1c results using the equation derived from a study of 507 normal and diabetic adults. Minority populations were underrepresented and children were not included. (Diabetes Care 31:4471-3550, 2008). The eAG is not equivalent to a fasting glucose. Blood 11/10/2022 4:15 PM CDT 11/10/2022 5:09 PM CDT us Cecily Cornejo MD LAB BLOOD ORDERABLES F inal Result [facility] [address] [facility]. Department [place] [address] * (ABNORMAL) Lipid panel (11/10/2022 4:15 PM [...] BLOOD ORDERABLES F inal Result [facility] [address] [facility]. Department [place] [address] from Last 3 Months or Most Recently Relevant to Health Maintenance Insurance ANTHEM ACCESS ANTHEM ACCESS Member Subscriber Plan / Payer (Ef fective 2021-Present) Name:Travis Salmeron Relation to Subscriber:Self Name:Travis Salmeron Payer ID:[id number] ([employer]) Type:Codingpeople Address: [address] CHOICE PLUS [facility] HMO/PPO Address: [address] [address] [place] [address] ANTHEM ACCESS [facility] CHOICE PLUS [facility] HMO/PPO Address: [address] [address] [place] [address] Care Teams Chief Of Police Relationship Specialty Start Date End Date Jacques Hobbs DO [address] [place] [address] PCP - General Family Medicine 06/11/23
--- NOTE | 2024-12-06 22:17 | ED.CHESTPAIN ---
HPI - Chest Pain General Chief Complaint: Chest Pain Stated Complaint: chest pain Time Seen by Provider: 12/06/24 22:17 Source: patient Mode of arrival: ambulatory Limitations: no limitations History of Present Illness HPI narrative: 59-year-old male with a history of hypertension, diabetes mellitus, dyslipidemia, CKD stage 4, OSMEL, positive stress test on 04/24/2024 with a normal EF, diastolic dysfunction, right carotid endarterectomy carotid stenosis with recurrent chest pain presents to the ED with -- anterior chest pain which radiates to both shoulders. The pain started at 10:00 p.m.. Initial pain was 7/10. Current pain is 3/10. -- Nausea with an urge to defecate. -- hypertension with a blood pressure of 228/96 No fever or chills. No lightheadedness. No diaphoresis patient did not have a cardiac catheterization secondary to his renal failure. MD complaint: chest pain Pertinent past history: coronary artery disease Onset (ago): hour(s) ( 1 hour) Timing of current episode: constant Prior episodes: Yes Onset: during rest Pain location: other ( anterior chest) Pain radiation: left shoulder and right shoulder Severity: moderate Pain scale (0-10): 7 Quality: aching Relieving factors: nothing Exacerbating factors: nothing Associated symptoms: nausea Treatment prior to arrival: none Related Data Home Medications ?Medication ?Instructions ?Recorded ?Confirmed ?Last Taken ?Type hydrochlorothiazide 25 mg tablet 25 mg PO DAILY 03/22/24 11/09/24 Unknown History clonidine HCl 0.2 mg tablet 0.2 mg PO BID 11/09/24 11/09/24 Unknown History insulin glargine 100 unit/mL 22 unit subcut HS 11/09/24 11/09/24 11/08/24 History subcutaneous solution (Lantus U-100 Insulin) nebivolol 20 mg tablet (Bystolic) 20 mg PO 3XW 11/09/24 11/09/24 Unknown History terbinafine HCl 250 mg tablet 250 mg PO DAILY 11/09/24 11/09/24 Unknown History Allergies Allergy/AdvReac Type Severity Reaction Status Date / Time NSAIDS (Non-Steroidal Allergy Unknown Swelling Verified 12/06/24 23:40 Anti-Inflamma of Lip/Tongue/Throat clopidogrel Allergy Hives Verified 12/06/24 23:40 lidocaine Allergy Hives Verified 12/06/24 23:40 ropivacaine Allergy Hives Verified 12/06/24 23:40 Succinimides Allergy Anaphylactic Verified 12/06/24 23:40 Shock succinylcholine Allergy Anaphylactic Verified 12/06/24 23:40 Shock yellow dye Allergy Hives Verified 12/06/24 23:40 yellow dyes Allergy Unknown Unknown Uncoded 12/06/24 23:40 tartrazine Allergy Unknown Uncoded 12/06/24 23:40 Review of Systems Review of Systems: All systems reviewed & are unremarkable except as noted in HPI and below Constitutional: Constitutional: Reports as per HPI and Reports no additional constitutional complaints Eyes: Eyes: Reports as per HPI and Reports no additional eye complaints ENT: Reports system reviewed and no additional complaints, except as documented and Reports as per HPI Cardiovascular: Cardiovascular: Reports as per HPI, Reports no additional cardiovascular complaints and Reports chest pain Respiratory: Respiratory: Reports as per HPI and Reports no additional respiratory complaints Gastrointestinal: Gastrointestinal: Reports as per HPI, Reports no additional gastrointestinal complaints and Reports nausea Genitourinary: Genitourinary: Reports no additional male genitourinary complaints and Reports as per HPI Musculoskeletal: Musculoskeletal: Reports no additional musculoskeletal complaints and Reports as per HPI Integumentary/Breasts: Skin/Breast: Reports system reviewed and no additional complaints, except as docu and Reports as per HPI Neurologic: Reports system reviewed and no additional complaints, except as documented and Reports as per HPI Psychiatric: Psychiatric: Reports no additional psychiatric complaints and Reports as per HPI Endocrine: Endocrine: Reports no additional endocrine complaints and Reports as per HPI Hematologic/Lymphatic: Hematologic/Lymphatic: Reports no additional hematologic/lymphatic complaints and Reports as per HPI Allergic/Immunologic: Allergic/Immunologic: Reports no additional allergic/immunologic complaints and Reports as per HPI [facility] Past Medical History Medical History Chronic kidney disease, stage IV (severe) Depression CKD (chronic kidney disease) GERD (gastroesophageal reflux disease) Type 2 diabetes mellitus Hypertension Carotid stenosis Surgical History Surgical History History of back surgery 2006. Discectomy Previous back surgery History of carotid endarterectomy Family History Family History Father Patient's father is in good health Sibling Patient's sister is in good health Patient's brother is in good health Mother Family history of diabetes mellitus in first degree relative, Onset Age: 64 Patient's mother is Grandparent Family history of heart disease in male family member before age 55 Social History Social History Smoking status: Former smoker Additional smoking assessment comments: Quit 2012. 28 pk year history Alcohol intake: never Substance use: never Do You Feel Safe in your Home?: Yes Lack of Transportation: No Lack of Food: Never True Current Housing: I Have Housing Concerned About Future Housing: No Difficulty Paying Gas/Electric Bills: No Difficulty Paying for Meds: No Currently Unemployed: No Education: Bachelor's Degree Difficulty w/ Childcare or Family Care: No Gender identity (if verbalized by the patient): Male Spiritual care concerns: No Exam Narrative: blood pressure of 228/96 with a respiratory rate of 18, heart rate of 77 oxygen saturation of 97% on room air. Const: General: no acute distress Nutritional Appearance: obese Orientation/consciousness: patient oriented x3 Limitations: no limitations HENMT: Head: normal to inspection Ears: external ears normal Face/Nose/Sinus: Normal external nose present Face and sinus: normal facial exam Mouth: Yes Normal oral and palatal mucosa present Throat: posterior oropharynx normal Eyes: Conjunctivae: conjunctivae normal Pupils: Equal, round and reactive pupils present EOM: EOMs intact bilaterally Direct Ophthalmoscopy: no photophobia Neck: Neck: normal visual inspection Other: Right CEA scar Chest: Chest palpation & inspection: normal inspection of the chest Resp: Effort & Inspection: normal respiratory effort Auscultation: clear to auscultation bilaterally Cardio: Rate: regular rate Rhythm: regular rhythm Other: systolic murmur at the base with radiation to the right carotid GI: GI Palp: Yes Soft to palpation Auscultation: normal bowel sounds Other: no tenderness/ rigidity /rebound. : General: Yes no CVA tenderness Back/Spine/Pelvis: Back: no CVA tenderness Skin: General skin exam: normal color Rashes: no rashes Wounds: no wounds Neuro: General: patient oriented x3, moves all extremities, no meningeal signs, no focal motor deficits and CN's II-XI intact bilaterally Cranial nerves: Yes Nystagmus not present Speech: normal speech Gait exam (Neuro): Normal gait present Extrem: General: normal to inspection and no clubbing, cyanosis or edema Psych: Mental Status: mental status grossly normal Affect: normal affect Attitude: cooperative Course Course Emergency Course: chest pain-- improved sublingual nitro. In EKG did not show any acute findings. Troponin of 18 and 585. Patient is on aspirin. Started IV heparin. patient had stress test on 04/24/2024 which revealed some reversible deficits. Hypertensive urgency-- Patient presented with a blood pressure of 28/96 with improved with One tab of sublingual nitro. CKD with a BUN/creatinine of 50/2.81 hyperglycemia with a blood sugar of 299 Vital Signs Vital signs: Vital Signs Temperature 37.5 C 12/06/24 22:26 Pulse Rate 77 12/06/24 22:26 Respiratory Rate 18 12/06/24 22:26 Blood Pressure 228/96 H 12/06/24 22:26 Pulse Oximetry 97 12/06/24 22:26 Oxygen Delivery Room Air 12/06/24 22:26 Temperature 37.5 C 12/06/24 22:26 Pulse Rate 60 12/07/24 02:31 Respiratory Rate 14 12/07/24 02:31 Blood Pressure 157/62 H 12/07/24 02:31 Pulse Oximetry 96 12/07/24 02:31 Oxygen Delivery Room Air 12/07/24 02:31 MDM - Chest Pain MDM Narrative Medical decision making narrative: hypertensive emergency non-STEMI CKD hyperglycemia Differential Diagnosis Differential diagnosis: Likely pneumothorax Medical Records Data Attestation: I reviewed the patient's medical records. Lab Data Attestation: I reviewed the patient's lab results. 12/06/24 22:37 12/06/24 22:37 Labs: Lab Results 12/06/24 12/07/24 Range/Units 22:37 01:03 WBC 8.9 (4.8-10.8) K/mm3 RBC 5.19 (4.70-6.10) M/mm3 Hgb 14.9 (14.0-18.0) g/dL Hct 44.5 (40.0-54.0) % MCV 85.7 (78.0-102.0) fL MCH 28.7 (27.0-31.0) pg MCHC 33.5 (32-36) g/dL RDW 14.4 (11.6-14.4) % Plt Count 182 (150-420) K/mm3 MPV 9.8 (8.7-11.0) fl Immature Gran % (Auto) 0.8 H (0.0-0.0) % Neut % (Auto) 74.6 H (50.0-70.0) % Lymph % (Auto) 13.6 L (18.0-42.0) % [place] % (Auto) 6.6 (2.0-11.0) % Eos % (Auto) 4.2 (1.0-6.0) % Baso % (Auto) 0.2 (0.0-1.0) % Lymph # (Auto) 1.21 (1.10-4.50) K/mm3 [place] # (Auto) 0.59 (0.10-0.90) K/mm3 Eos # (Auto) 0.37 (0.02-0.50) K/mm3 Baso # (Auto) 0.02 (0.00-0.10) K/mm3 Abs Immat Gran (auto) 0.07 H (0.00-0.00) K/mm3 Absolute Neuts (auto) 6.62 (1.70-7.20) K/mm3 Absolute Nucleated RBC 0.00 (0.00-0.00) K/mm3 Nucleated RBC % 0.0 (0-0.0) % PT 10.0 (9.50-12.1) Seconds INR 0.9 APTT 25.9 (23.9-30.70) Sec Sodium 138 (136-145) mmol/L Potassium 4.5 (3.5-5.1) mmol/L Chloride 101 (98-108) mmol/L Carbon Dioxide 26 (21-32) mmol/L Anion Gap 11 (4-12) mmol/L BUN 50 H (7-18) mg/dL Creatinine 2.81 H (0.70-1.30) mg/dL Estim Creat Clear Calc 34 ml/min Estimated GFR 23 L (59 - ) Glucose 299 H (70-99) mg/dL Calculated Osmolality 310 H (285-295) mOsm/kg Lactic Acid 1.0 (0.4-2.0) mmol/L Calcium 9.2 (8.5-10.1) mg/dL Total Bilirubin 0.5 (0.00-1.00) mg/dL AST 14 L (15-37) U/L ALT 27 (16-63) U/L Alkaline Phosphatase 136 H (46-116) U/L Troponin I 18.3 585.5 H* (0.00-60.4) ng/L NT-Pro-B Natriuret Pep 455 H (0-125) pg/mL Total Protein 8.0 (6.4-8.2) g/dL Albumin 3.9 (3.4-5.0) g/dL Lipase 66 (16-77) U/L TSH 4.60 H (0.36-3.74) uIU/mL ECG Data EKG #2: ECG completion date: 12/07/24 ECG completion time: 02:09 Interpretation: Repeat EKG reveals normal sinus rhythm. Normal axis. No ST-T wave changes noted. Critical Care Time Critical Care Time Critical Care Time: Yes Total Critical Care Time: 40 Discharge Plan Discharge Clinical Impression: Non-ST elevated myocardial infarction (non-STEMI), Hypertensive urgency CKD (chronic kidney disease) Qualifiers: Chronic kidney disease stage: stage 4 (GFR 15-29) Qualified Code(s): N18.4 - Chronic kidney disease, stage 4 (severe) Hyperglycemia due to type 2 diabetes mellitus Qualifiers: Diabetes mellitus cad operator insulin use: with cad operator use Qualified Code(s): E11.65 - Type 2 diabetes mellitus with hyperglycemia Patient Disposition: Still a Patient Condition: Stable Additional Instructions: Transfer the patient to [facility]. Patient has been accepted by Patient Language: Botswanan Prescriptions: No Action insulin glargine [Lantus U-100 Insulin] 100 unit/mL solution 22 unit subcut HS terbinafine HCl 250 mg tablet 250 mg PO DAILY clonidine HCl 0.2 mg tablet 0.2 mg PO BID nebivolol [Bystolic] 20 mg tablet 20 mg PO 3XW Rx Instructions: Take on Wednesday, Wednesday, Wednesday amoxicillin-pot clavulanate 875-125 mg tablet 1 tablet PO Q12H Qty: 10 0RF hydrochlorothiazide 25 mg tablet 25 mg PO DAILY aspirin 325 mg tablet,delayed release (DR/EC) 325 mg PO DAILY Qty: 30 0RF (DME) blood-glucose meter Kit See Rx Instructions .ROUTE .MEDSUPPLY Qty: 1 0RF Rx Instructions: ACHS (DME) lancets [Accu-Chek Softclix Lancets] Misc See Rx Instructions .Route Qty: 200 1RF Rx Instructions: ACHS (DME) Accu-Chek Guide test strips Strip See Rx Instructions .ROUTE .MEDSUPPLY Qty: 100 2RF Rx Instructions: ACHS amlodipine 10 mg tablet See Rx Instructions .ROUTE .COMPLEX Qty: 90 1RF Dose Instruction: TAKE 1 TABLET BY MOUTH EVERY DAY Rx Instructions: TAKE 1 TABLET BY MOUTH EVERY DAY Jardiance 10 mg tablet See Rx Instructions .ROUTE .COMPLEX Qty: 30 2RF Dose Instruction: TAKE 1 TABLET BY MOUTH EVERY DAY IN THE MORNING Rx Instructions: TAKE 1 TABLET BY MOUTH EVERY DAY IN THE MORNING clonidine HCl 0.1 mg tablet See Rx Instructions .ROUTE .COMPLEX Qty: 180 1RF Dose Instruction: TAKE 1 TABLET BY MOUTH TWICE A DAY Rx Instructions: TAKE 1 TABLET BY MOUTH TWICE A DAY (DME) pen needle, diabetic [BD Ultra-Fine Mini Pen Needle] 31 gauge x 3/16 needle See Rx Instructions .ROUTE .COMPLEX Qty: 100 2RF Dose Instruction: USE DIRECTED TO INJECT INSULIN 3 TIMES A DAY Rx Instructions: USE DIRECTED TO INJECT INSULIN 3 TIMES A DAY bupropion HCl 300 mg tablet extended release 24 hr See Rx Instructions .ROUTE .COMPLEX Qty: 90 0RF Dose Instruction: TAKE 1 TABLET BY MOUTH IN THE MORNING Rx Instructions: TAKE 1 TABLET BY MOUTH IN THE MORNING irbesartan 300 mg tablet See Rx Instructions .ROUTE .COMPLEX Qty: 90 2RF Dose Instruction: TAKE 1 TABLET BY MOUTH EVERY DAY AT NIGHT Rx Instructions: TAKE 1 TABLET BY MOUTH EVERY DAY AT NIGHT insulin lispro 100 unit/mL insulin pen 12 unit subcut TIDWMEAL Qty: 15 0RF insulin glargine [Lantus Solostar U-100 Insulin] 100 unit/mL (3 mL) insulin pen 14 unit subcut DAILY Qty: 15 3RF Patient Comments: 22 units at noc atorvastatin 40 mg tablet See Rx Instructions .ROUTE .COMPLEX Qty: 60 1RF Dose Instruction: TAKE 1 TABLET (40 MG TOTAL) BY MOUTH 3 (THREE) TIMES A WEEK Patient Comments: Wednesday, Wednesday, Wednesday Rx Instructions: TAKE 1 TABLET (40 MG TOTAL) BY MOUTH 3 (THREE) TIMES A WEEK (DME) FreeStyle Kavon 3 Sensor Device See Rx Instructions .ROUTE .COMPLEX Qty: 2 0RF Dose Instruction: USE TO CHECK SUGAR BEFORE MEALS AND AT BEDTIME. CHANGE EVERY 2 WEEKS Rx Instructions: USE TO CHECK SUGAR BEFORE MEALS AND AT BEDTIME. CHANGE EVERY 2 WEEKS allopurinol 100 mg tablet See Rx Instructions .ROUTE .COMPLEX Qty: 90 0RF Dose Instruction: TAKE 1 TABLET BY MOUTH EVERY DAY Rx Instructions: TAKE 1 TABLET BY MOUTH EVERY DAY escitalopram oxalate 10 mg tablet See Rx Instructions .ROUTE .COMPLEX Qty: 90 0RF Dose Instruction: TAKE 1 TABLET BY MOUTH EVERY DAY Rx Instructions: TAKE 1 TABLET BY MOUTH EVERY DAY Ozempic 1 mg/dose (4 mg/3 mL) pen injector See Rx Instructions .ROUTE .COMPLEX Qty: 3 0RF Dose Instruction: INJECT 1MG SUBCUTANEOUSLY ONCE WEEKLY FOR 1 MONTH Rx Instructions: INJECT 1MG SUBCUTANEOUSLY ONCE WEEKLY FOR 1 MONTH Follow-up/Referrals: Jacques Hobbs DO [Primary Care Provider] - Time of Disposition: 03:22
[2024-12-06 22:26] VITALS: BP 228/96; PULSE 77; RESP 18; TEMP 37.5; O2SAT 97
[2024-12-06 22:40] LABS: Basophils Absolute Auto 0.02 K/mm3 (0.00-0.10); Basophils Percent Auto 0.2 % (0.0-1.0); Eosinophils Absolute Auto 0.37 K/mm3 (0.02-0.50); Eosinophils Percent Auto 4.2 % (1.0-6.0); Hematocrit 44.5 % (40.0-54.0); Hemoglobin 14.9 g/dL (14.0-18.0); Immature Granulocyte Absolute 0.07 K/mm3 (0.00-0.00); Immature Granulocyte Percent A 0.8 % (0.0-0.0); Lymphocytes Absolute Auto 1.21 K/mm3 (1.10-4.50); Lymphocytes Percent Auto 13.6 % (18.0-42.0); Mean Corpuscular HGB Conc 33.5 g/dL (32-36); Mean Corpuscular Hemoglobin 28.7 pg (27.0-31.0); Mean Corpuscular Volume 85.7 fL (78.0-102.0); Mean Platelet Volume 9.8 fl (8.7-11.0); Monocytes Absolute Auto 0.59 K/mm3 (0.10-0.90); Monocytes Percent Auto 6.6 % (2.0-11.0); Neutrophils Absolute Auto 6.62 K/mm3 (1.70-7.20); Neutrophils Percent Auto 74.6 % (50.0-70.0); Platelet Count Result 182 K/mm3 (150-420); Red Blood Count 5.19 M/mm3 (4.70-6.10); Red Cell Distribution Width 14.4 % (11.6-14.4); White Blood Count 8.9 K/mm3 (4.8-10.8)
[2024-12-06 22:48] VITALS: BP 199/85; PULSE 72; RESP 15; O2SAT 96
--- OUTSIDE RECORDS SUMMARY | 2024-12-06 22:50 | XMS_ITS | Encounter Summary ---
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
--- OUTSIDE RECORDS SUMMARY | 2024-12-06 22:51 | XMS_ITS | Referral Summary ---
Author Organization [facility] Address [address] [address] Care Team Providers Care Track Vehicle Repairer Name Role Phone EstelaJacques rg Primary Care [...] today Will request Renal dopplers from [facility] BP and BG control Continue jardiance and ARB Continue follow up with nephrology Assessment & Plan (05/12/2022 7:51 AM CDT): Recommend consultation with pole peeler Referral placed Current moderate episode of major depressive disorder without prior episode 02/10/2022 Assessment & Plan (11/10/2022 4:01 PM CDT): Start fluoxetine 20mg daily Follow up 3 months Assessment & Plan (07/20/2022 10:39 AM DOOR PATCHER): Would like to restart the escitalopram. Prescription [...] provided. Assessment & Plan (07/20/2022 9:26 AM DOOR PATCHER): BMI Follow-up includes: nutrition counseling, exercise counseling [...] provided. Assessment & Plan (09/22/2018 3:54 PM DOOR PATCHER): BMI Follow-up includes: nutrition counseling, exercise counseling and education provided. Encourage diet and exercise Assessment & Plan (08/20/2017 8:32 AM DOOR PATCHER): BMI Follow-up includes: nutrition counseling, exercise counseling and education provided. Palpitations 08/20/2017 Assessment & Plan (08/20/2017 8:45 AM DOOR PATCHER): Well controlled on Bystolic. Only very rarely. Previously correlated to PVCs. Continue follow up with Dr. Washubrn and continue Bystolic. Low back pain 08/20/2017 Assessment & Plan (02/22/2020 6:26 PM CDT): History of back surgery Takes tramadol p.r.n. for pain as he is allergic to other analgesics Assessment & Plan (08/20/2017 8:46 AM DOOR PATCHER): H/o discectomy. Well controlled on tramadol 1-2 [...] today Assessment & Plan (09/28/2019 3:34 PM DOOR PATCHER): We will recheck a fasting f lipid profile in the next week Assessment & Plan (01/03/2019 3:49 PM CDT): Reviewed his last lipid profile I think we can safely follow him at this time continue on atorvastatin for Assessment & Plan (09/22/2018 3:55 PM DOOR PATCHER): Recheck a fasting lipid profile in the near future. Assessment & Plan (08/20/2017 8:45 AM DOOR PATCHER): Last LDL was 81 04/2016. Will check [...] 300 Assessment & Plan (07/20/2022 10:36 AM DOOR PATCHER): Patient appears to be having allergic reaction [...] goal today though generally well controlled Continue [id number] [id number] Assessment & Plan (11/24/2019 9:42 AM CDT): Well controlled on current regimen Assessment & Plan (09/28/2019 3:34 PM DOOR PATCHER): Well controlled on current regimen Assessment & Plan (01/03/2019 3:49 PM CDT): A controlled on current regimen Assessment & Plan (08/20/2017 8:44 AM DOOR PATCHER): Well controlled. Continue current regimen of bystolic, [...] loss Assessment & Plan (09/28/2019 3:35 PM DOOR PATCHER): A1c in June was 9.0, begin with metformin, Jardiance 25 we will see him in late September Snoring 09/22/2018 02/22/2020 Assessment & Plan (11/24/2019 9:42 AM CDT): He is diagnosed with obstructive sleep apnea continues on CPAP Assessment & Plan (09/22/2018 3:53 PM DOOR PATCHER): He is very concerned about the possibility [...] on file Legal Sex Male 1:03 PM DOOR PATCHER Gender Identity Male 02/13/2019 5:28 PM CDT [...] PM CDT) eGFR 36 mL/min/1. 73 m2 [facility] Comment: Interpretive Data Reference Interval Normal [...] ORDERABLES F inal Result Performing Organization Address [facility] Co de Phone Number [facility] [phone] [employer] [place], [place] [phone] * PSA screen (11/10/2022 4:15 PM CDT) PSA-Total 2.50 <=3.90 ng/mL [facility] Comment: Interpretive Data AGE SEX REFERENCE INTERVAL 0 minutes-150 years Female None 0 minutes-49 years Male None 50-59 years Male 0-3.90 60-69 years Male 0-5.40 70-79 years Male 0-6.20 80-150 years Male 0-6.20 The [employer] PSA Total assay procedure was used. Results from different manufacturers or methods may not be comparable. Serial testing should be performed using the same method. Current interpretive data last revised 22. Blood 11/10/2022 4:15 PM CDT 11/10/2022 5:09 PM CDT Cecily Cornejo MD LAB BLOOD ORDERABLES F inal Result Performing Organization Address [facility] Co de Phone Number [facility] [phone] [employer] [place] [address] * (ABNORMAL) Albumin Creatinine Ratio, Urine (11/10/2022 4:15 PM CDT) Albumin Ur 312.3 mg/L [facility] Comment: Interpretive Data No reference range established. Current interpretive data was last revised 2019. Testing performed by: [facility], [address] [place] [address]., [id number] Creatinine Ur 96.4 mg/dL [facility] Comment: Interpretive Data No reference range established. Current interpretive data was last revised 2019. Testing performed by: [facility], [address] [place] [address]., [id number] Albumin Creatinine Ratio, Ur 324(H) 1 - 29 mg/g [facility] Comment:Testing performed by : [facility], [address] [place] [address]., [id number] Urine 11/10/2022 4:15 PM CDT 11/10/2022 8:17 PM CDT Result [facility] Cecily Cornejo MD LAB URINE ORDERABLES F inal Result Performing Organization Address [facility] de Phone Number [facility] [phone] [employer] [facility] of Laboratories [place], [place] [phone] * (ABNORMAL) Hemoglobin A1c (11/10/2022 4:15 PM CDT) [facility] Signature Hgb A1C 7.8(H) 4.0 - 5.6 % [facility] Estimated Average Glucose 177 mg/dL [facility] Comment: The ADA recommends reporting an estimated Average Glucose (eAG) with all Hemoglobin A1c results using the equation derived from a study of 507 normal and diabetic adults. Minority populations were underrepresented and children were not included. (Diabetes Care 31:0928-3783, 2008). The eAG is not equivalent to a fasting glucose. Blood 11/10/2022 4:15 PM CDT 11/10/2022 5:09 PM CDT Cecily Cornejo MD LAB BLOOD ORDERABLES F inal Result Performing Organization Address [facility] Co de Phone Number [facility] [phone] [facility]. Department [place] [address] * (ABNORMAL) Lipid panel (11/10/2022 4:15 PM CDT) [facility] Signature Cholesterol 163 30 - 199 [...] BLOOD ORDERABLES F inal Result [facility] [id number] [facility]. Department of Laboratories [place], [place] [phone] from Last 3 Months or Most Recently Relevant to Health Maintenance Insurance [facility] ACCESS ANTHEM ACCESS Member Subscriber Plan / Payer (Ef fective 2021-Present) Name:Travis Salmeron Relation to Subscriber:Self Name:Travis Salmeron Payer ID:[id number] ([facility]) Type:Perzo Address: [facility] [id number] [employer]US [facility] H[employer]/PPO Address: [address] [address] [place] [address] ANTHEM ACCESS [facility] CHOICE PLUS [facility] H[employer]/PPO Address: [address] [address] [place] [address] Care Teams Track Vehicle Repairer Relationship Specialty Start Date End Date Jacques Hobbs DO [address] [place] [address] PCP - General Family Medicine 06/11/23
--- OUTSIDE RECORDS SUMMARY | 2024-12-06 22:51 | XMS_ITS | Clinical Summary ---
Author Organization [facility] Address [address] [address] Care Team Providers Care Floor Installer Name Role Phone EstelaJacques rg Primary Care [...] today Will request Renal dopplers from [facility] BP and BG control Continue jardiance and ARB Continue follow up with nephrology Assessment & Plan (05/12/2022 7:51 AM CDT): Recommend consultation with statistician theoretical Referral placed Current moderate episode of major depressive disorder without prior episode 02/10/2022 Assessment & Plan (11/10/2022 4:01 PM CDT): Start fluoxetine 20mg daily Follow up 3 months Assessment & Plan (07/20/2022 10:39 AM ASSISTANT CLINICAL DIRECTOR): Would like to restart the escitalopram. [...] provided. Assessment & Plan (07/20/2022 9:26 AM ASSISTANT CLINICAL DIRECTOR): BMI Follow-up includes: nutrition counseling, exercise [...] provided. Assessment & Plan (09/22/2018 3:54 PM ASSISTANT CLINICAL DIRECTOR): BMI Follow-up includes: nutrition counseling, exercise counseling and education provided. Encourage diet and exercise Assessment & Plan (08/20/2017 8:32 AM ASSISTANT CLINICAL DIRECTOR): BMI Follow-up includes: nutrition counseling, exercise counseling and education provided. Palpitations 08/20/2017 Assessment & Plan (08/20/2017 8:45 AM ASSISTANT CLINICAL DIRECTOR): Well controlled on Bystolic. Only very rarely. Previously correlated to PVCs. Continue follow up with Dr. Washburn and continue Bystolic. Low back pain 08/20/2017 Assessment & Plan (02/22/2020 6:26 PM CDT): History of back surgery Takes tramadol p.r.n. for pain as he is allergic to other analgesics Assessment & Plan (08/20/2017 8:46 AM ASSISTANT CLINICAL DIRECTOR): H/o discectomy. Well controlled on tramadol [...] today Assessment & Plan (09/28/2019 3:34 PM ASSISTANT CLINICAL DIRECTOR): We will recheck a fasting f lipid profile in the next week Assessment & Plan (01/03/2019 3:49 PM CDT): Reviewed his last lipid profile I think we can safely follow him at this time continue on atorvastatin for Assessment & Plan (09/22/2018 3:55 PM ASSISTANT CLINICAL DIRECTOR): Recheck a fasting lipid profile in the near future. Assessment & Plan (08/20/2017 8:45 AM ASSISTANT CLINICAL DIRECTOR): Last LDL was 81 04/2016. Will [...] 300 Assessment & Plan (07/20/2022 10:36 AM ASSISTANT CLINICAL DIRECTOR): Patient appears to be having allergic [...] goal today though generally well controlled Continue dmybhpcahy-nwqrfukvb-JPNP 10-160-25 Assessment & Plan (11/24/2019 9:42 AM CDT): Well controlled on current regimen Assessment & Plan (09/28/2019 3:34 PM ASSISTANT CLINICAL DIRECTOR): Well controlled on current regimen Assessment & Plan (01/03/2019 3:49 PM CDT): A controlled on current regimen Assessment & Plan (08/20/2017 8:44 AM ASSISTANT CLINICAL DIRECTOR): Well controlled. Continue current regimen of [...] loss Assessment & Plan (09/28/2019 3:35 PM ASSISTANT CLINICAL DIRECTOR): A1c in June was 9.0, begin with metformin, Jardiance 25 we will see him in late September Snoring 09/22/2018 02/22/2020 Assessment & Plan (11/24/2019 9:42 AM CDT): He is diagnosed with obstructive sleep apnea continues on CPAP Assessment & Plan (09/22/2018 3:53 PM ASSISTANT CLINICAL DIRECTOR): He is very concerned about the [...] on file Legal Sex Male 1:03 PM ASSISTANT CLINICAL DIRECTOR Gender Identity Male 02/13/2019 5:28 PM [...] ORDERABLES F inal Result Performing Organization Address [facility] de Phone Number [facility] [address] [facility] [place] [address] * PSA screen (11/10/2022 4:15 PM CDT) [...] ORDERABLES F inal Result Performing Organization Address [facility]/ZIP Co de Phone Number [facility] [address] [facility] [place] [address] * (ABNORMAL) Albumin Creatinine Ratio, Urine (11/10/2022 4:15 PM CDT) Albumin Ur 312.3 mg/L [facility] Comment: Interpretive Data No reference range established. Current interpretive data was last revised 2019. Testing performed by: [facility], [address] [place] [address]., [address] Creatinine Ur 96.4 mg/dL [facility]MA MCQUEEN Comment: Interpretive Data No reference range established. Current interpretive data was last revised 2019. Testing performed by: [facility], [address] [place] [address]., [address] Albumin Creatinine Ratio, Ur 324(H) 1 - 29 mg/g [facility] Comment:Testing performed by : [facility], [address] [place] [address]., [address] Urine 11/10/2022 4:15 PM CDT 11/10/2022 8:17 PM CDT Cecily Cornejo MD LAB URINE ORDERABLES F inal Result Performing Organization Address [facility] Phone Number [facility] [address] [facility] [place] [address] * (ABNORMAL) Hemoglobin A1c (11/10/2022 4:15 PM CDT) Hgb A1C 7.8(H) 4.0 - 5.6 % [facility] Estimated Average Glucose 177 mg/dL [facility] Comment: The ADA recommends reporting an estimated Average Glucose (eAG) with all Hemoglobin A1c results using the equation derived from a study of 507 normal and diabetic adults. Minority populations were underrepresented and children were not included. (Diabetes Care 31:2657-4723, 2008). The eAG is not equivalent to a fasting glucose. Blood 11/10/2022 4:15 PM CDT 11/10/2022 5:09 PM CDT us Cecily Cornejo MD LAB BLOOD ORDERABLES F inal Result [facility] [address] [facility]. [place] [address] * (ABNORMAL) Lipid panel (11/10/2022 4:15 PM [...] BLOOD ORDERABLES F inal Result [facility] [address] [facility]. [place] [address] from Last 3 Months or Most Recently Relevant to Health Maintenance Insurance ANTHEM ACCESS ANTHEM ACCESS Member Subscriber Plan / Payer (Ef fective 2021-Present) Name:Travis Salmeron Relation to Subscriber:Self Name:Travis Salmeron Payer ID:[id number] (NAIC) Type:[employer] Address: [phone] CHOICE PLUS ANTHEM ACCESS [facility] CHOICE PLUS Care Teams Floor Installer Relationship Specialty Start Date End Date Jacques Hobbs DO [address] [place] [address] PCP - General Family Medicine 06/11/23
[2024-12-06 22:53] LABS: INR 0.9; Partial Thromboplastin Time 25.9 Sec (23.9-30.70)
[2024-12-06 23:01] VITALS: BP 192/84; PULSE 72; RESP 14; O2SAT 97
[2024-12-06 23:03] LABS: Alanine Aminotransferase 27 U/L (16-63); Albumin Level 3.9 g/dL (3.4-5.0); Alkaline Phosphatase 136 U/L (46-116); Anion Gap 11 mmol/L (4-12); Aspartate Amino Transferase 14 U/L (15-37); Bilirubin,Total 0.5 mg/dL (0.00-1.00); Blood Urea Nitrogen 50 mg/dL (7-18); Calcium 9.2 mg/dL (8.5-10.1); Carbon Dioxide 26 mmol/L (21-32); Chloride 101 mmol/L (98-108); Estimated CRCL calculation 34 ml/min; Estimated Glomerular Filt Rate 23; Glucose 299 mg/dL (70-99); Lipase 66 U/L (16-77); NT Pro B Type Natriuretic Pept 455 pg/mL (0-125); Osmolality Calculated 310 mOsm/kg (285-295); Potassium 4.5 mmol/L (3.5-5.1); Sodium 138 mmol/L (136-145); Troponin I 18.3 ng/L (0.00-60.4)
[2024-12-06 23:16] VITALS: BP 187/80; PULSE 71; O2SAT 97
[2024-12-06] MEDS: NITROGLYCERIN SL 0.4 MG TABLET SUBLINGUAL (23:19)
--- NOTE | 2024-12-06 23:20 | PC.NURSE ---
patient medicated per order, see MAR. reports pain as 2/10 at this time. spouse at bedside. RN monitoring.
--- NOTE | 2024-12-06 23:29 | PC.NURSE ---
Dr. Pérez at bedside at this time providing patient update of results and plan.
[2024-12-06 23:31] VITALS: BP 157/72; PULSE 71; RESP 16; O2SAT 95
--- NOTE | 2024-12-06 23:45 | PC.NURSE ---
RESTING QUIETLY IN ROOM WITH THE LIGHTS TURNED OFF. SITTING IN CHAIR IN ROOM. CALL LIGHT IN REACH. NO NEEDS AT THIS TIME
[2024-12-06 23:46] VITALS: BP 155/64; PULSE 67; RESP 14; O2SAT 96
[2024-12-07] VITALS (17 sets, daily range): BP systolic 117–179; BP diastolic 62–91; PULSE 56–64; RESP 12–21; O2SAT 94–98
--- NOTE | 2024-12-07 00:06 | PC.NURSE ---
DR TREJO AT THE BEDSIDE
--- NOTE | 2024-12-07 00:15 | PC.NURSE ---
PATIENT AMBULATING TO THE BATHROOM
--- NOTE | 2024-12-07 00:59 | PC.NURSE ---
LAB AT THE BEDSIDE
[2024-12-07 01:29] LABS: Troponin I 585.5 ng/L (0.00-60.4)
--- NOTE | 2024-12-07 01:47 | PC.NURSE ---
PATIENT UPDATED ON PHONE CALL TO [facility]. EDUCATION WAS GIVEN ON HEPARIN INFUSION THAT WOULD BE STARTED. PATIENT VERBALIZED UNDERSTANDING
[2024-12-07] MEDS: HEPARIN SODIUM 5,000 UNITS/ML VIAL 4000 UNITS IV PUSH (01:51)
[2024-12-07] MEDS: HEPARIN SOD/D5W 100 UNITS/ML 25,000 UNITS/250 ML BAG 10 UNITS IV CONT (01:52)
--- NOTE | 2024-12-07 01:57 | ECG_ITS ---
Test Date: 2024-12-07 02:06:33 Measurements Intervals [place] Rate: 61 P: 53 IL: 181 QRS: 6 QRSD: 94 T: 53 QT: 395 QTc: 400 Interpretive Statements SINUS RHYTHM CONSIDER INFERIOR INFARCT, AGE INDETERMINATE BORDERLINE ST-T WAVE ABNORMALITY- HIGH LATERAL LEADS BASELINE ARTIFACT- I, II, III, AVR, AVL, AVF, V1-V2 BORDERLINE ECG Compared to ECG 12/06/2024 22:18:36 NO SIGNIFICANT CHANGE Electronically Signed On 12-07-2024 05:40:44 CDT by Olegario Sung D.O.
--- NOTE | 2024-12-07 02:30 | PC.NURSE ---
PATIENT RESTING ON STRETCHER WITH AT HIS SIDE. DENIES ANY NEEDS AT THIS TIME. DENIES ANY CHEST PAIN AT THIS TIME. CALL LIGHT IN REACH. WAITING ON RETURN CALL FROM [facility]
[2024-12-07] MEDS: INSULIN HUMAN REGULAR (*BKC) 1,000 UNITS/10 ML VIAL 6 UNITS SUB-Q (02:59)
--- NOTE | 2024-12-07 03:00 | PC.NURSE ---
PATIENT IS RESTING IN ROOM WITH AT HIS SIDE. CALL LIGHT IS IN REACH.
--- NOTE | 2024-12-07 03:24 | PC.NURSE ---
CHEY Pérez at patient bedside for patient update.
--- NOTE | 2024-12-07 03:48 | PC.NURSE ---
PATIENT UP TO THE SIDE OF THE BED USING THE URINAL
[2024-12-07 04:09] LABS: Glucose Point of Care 253 mg/dl (65-105)
== END 2024-12-07 04:54 | disposition short-term general hospital (02) ==
PROVIDERS: Emergency Provider Internal Medicine Critical Care Medicine; PCP Family Medicine
DX: I21.4 Non-ST elevation (NSTEMI) myocardial infarction (principal); E11.65 Type 2 diabetes mellitus with hyperglycemia; I12.9 Hypertensive chronic kidney disease with stage 1 through stage 4 chronic kidney disease, or unspecified chronic kidney disease; E11.22 Type 2 diabetes mellitus with diabetic chronic kidney disease; N18.4 Chronic kidney disease, stage 4 (severe); Z87.891 Personal history of nicotine dependence
CPT/HCPCS: 36415; 71045; 80053; 82948; 83605; 83690; 83880; 84443; 84484; 85025; 85610; 85730; 93005; 96374; 99285; A9270; J1644; J1815

== ENCOUNTER 2024-12-07 05:33 | Inpatient (IN) | payer BC, OTHER, SELFPAY ==
[2024-12-07] VITALS (27 sets, daily range): BP systolic 123–201; BP diastolic 63–86; PULSE 56–87; RESP 12–22; TEMP 36.4–36.8; O2SAT 94–100; BMI 33.0
--- NOTE | 2024-12-07 | ECHO_ITS ---
Patient Info Name: Travis Salmeron Age: 59 years : 1965 Gender: Male Ht: 71 in Wt: 236 lbs BSA: 2.35 m2 HR: 60 bpm BP: 174 / 79 mmHg Heart Rhythm: Sinus Rhythm Technical Quality: Fair Exam Date: 12/07/2024 11:19 AM Exam Location: Echo Lab Patient Status: Inpatient Admit Date: 12/07/2024 Staff Ordering Physician: Olegario Sung DO Breast Buffer: Tigist Mcdowell RDCS Attending Provider: Kenn Owens PA-C Referring Physician: Pineda JARAMILLO; Exam Type: CA echo doppler color flow Study Info Indications - NSTEMI Complete two-dimensional, color flow and Doppler transthoracic echocardiogram is performed. History/Risk Factors Hypertension: Yes Diabetes Mellitus: Type II Summary 1. Complete two-dimensional, color flow and Doppler transthoracic echocardiogram is performed. 2. Left ventricular chamber dimension is normal. 3. Left ventricular systolic function is normal, estimated at 60-65%. 4. There is mild concentric increased left ventricular wall thickness. 5. The left ventricular diastolic function is grade I diastolic dysfunction. 6. E/e' 16 is elevated. 7. Left atrial chamber dimension is mildly enlarged. 8. There is mild aortic valve sclerosis. 9. There is mild mitral valve regurgitation. 10. No pulmonary hypertension, estimated pulmonary arterial systolic pressure is 22 mmHg. Recommendations * Continue medical therapy for diabetes. Left Ventricle E/e' 16 is elevated. Left ventricular chamber dimension is normal. Left ventricular systolic function is normal, estimated at 60-65%. There is mild concentric increased left ventricular wall thickness. The left ventricular diastolic function is grade I diastolic dysfunction. Right Ventricle Right ventricular systolic function is normal and with normal TAPSE 2.5 cm. Right ventricular chamber dimension is normal. Left Atria Left atrial chamber dimension is mildly enlarged. Right Atria Right atrial chamber dimension is normal. Aortic Valve The aortic valve is trileaflet. There is mild aortic valve sclerosis. There is no aortic valve stenosis. There is no aortic valve regurgitation. Pulmonic Valve There is no pulmonic regurgitation. Mitral Valve There is no mitral valve stenosis. There is mild mitral valve regurgitation. Tricuspid Valve There is no tricuspid valve regurgitation. No pulmonary hypertension, estimated pulmonary arterial systolic pressure is 22 mmHg. Pericardium/Pleural There is no pericardial effusion. Inferior Vena Cava Normal inferior vena cava with >50% collapse upon inspiration consistent with normal right atrial pressure, 5 mmHg. Aorta The aortic root size at the sinus of Valsalva is normal. Left Ventricular Outflow Tract Name Value Normal LVOT 2D LVOT Diameter 2.0 cm LVOT Doppler LVOT Peak Gradient 6 mmHg LVOT Mean Gradient 4 mmHg LVOT VTI 31 cm LVOT VTI/AV VTI Ratio 0.7 LVOT Stroke Volume 98 ml LVOT CO 18.1 l/min LVOT CI 7.7 l/min/m2 Pulmonic Valve Name Value Normal RVOT Doppler RVOT Peak Gradient 3 mmHg PV Doppler PV Peak Gradient 4 mmHg Mitral Valve Name Value Normal MV Doppler MV Decel [place] 405 cm/s2 MV PHT 72 ms MV Area (PHT) 3.0 cm2 4.0-5.0 MV Diastolic Function MV E Peak Velocity 101 cm/s MV A Peak Velocity 103 cm/s MV E/A 1.0 MV Decel Time 249 ms MV Annular TDI MV E/e' (Septal) 15.6 <=8.0 MV E/e' (Lateral) 16.7 <=8.0 MV E/e' (Average) 16.2 Tricuspid Valve Name Value Normal TV Regurgitation Doppler TR Peak Velocity 204 cm/s TR Peak Gradient 17 mmHg Estimated PAP/RSVP RA Pressure 5 mmHg <=5 PA Systolic Pressure 22 mmHg <36 RV Systolic Pressure 22 mmHg <36 Aortic Valve Name Value Normal AV Doppler AV Peak Velocity 167 cm/s AV Peak Gradient 11 mmHg AV Mean Gradient 5 mmHg AV VTI 41 cm AV Area (Cont Eq VTI) 2.4 cm2 >=3.0 AV Area (Cont Eq Greg) 2.3 cm2 AV Regurgitation 2D LVOT Area 3.2 cm2 Ventricles Name Value Normal LV Dimensions 2D/MM IVS Diastolic Thickness (2D) 1.2 cm 0.6-1.0 LVID Diastole (2D) 4.4 cm 4.2-5.8 LVIW Diastolic Thickness (2D) 1.0 cm 0.6-1.0 LVID Systole (2D) 2.8 cm 2.5-4.0 LVOT Diameter 2.0 cm LV Mass (2D Cubed) 170.65 g 88.00-224.00 LV Mass Index (2D Cubed) 73 g/m2 49-115 Relative Wall Thickness (2D) 0.46 LV Fractional Shortening/Ejection Fraction 2D/MM LV Fractional Shortening (2D) 35 % 25-43 LV EF (2D Teicholz) 65 % 52-72 LV Diastolic Volume (4C MOD) 151 ml LV EF (4C MOD) 72 % LV Diastolic Volume (2C MOD) 152 ml LV EF (2C MOD) 68 % LV Diastolic Volume (BP MOD) 153 ml 62-150 LV Diastolic Volume Index (BP MOD) 65 ml/m2 34-74 LV Systolic Volume (BP MOD) 45 ml 21-61 LV Systolic Volume Index (BP MOD) 19 ml/m2 11-31 LV EF (BP MOD) 70 % 52-72 LV Diastolic Length (4C) 10.0 cm LV Systolic Length (4C) 7.9 cm LV Stroke Volume (4C MOD) 108 ml Atria Name Value Normal LA Dimensions LA Volume (4C A-L) 82 ml LA Volume (BP A-L) 70 ml RA Dimensions RA Area (4C) 14.7 cm2 <=18.0 Report Signatures
--- OUTSIDE RECORDS SUMMARY | 2024-12-07 05:36 | XMS_ITS | Encounter Summary ---
Author Organization [facility] Address [address] [place] [address] Phone Care Team Providers Care Hospital Medical Biller Name Role Phone Sj Hernandez MD Primary [...] on file Legal Sex Male 1:03 PM CHILD ATTENDANT Gender Identity Male 02/13/2019 5:28 PM CDT [...] on filedocumented in this encounter Care Teams Hospital Medical Biller Relationship Specialty Start Date End Date Sj Hernandez MD [address] [address] PCP - General 11/27/16 02/21/20 Cecily Cornejo MD [address] [address] PCP - General Internal Medicine 02/22/20 06/10/23 Jacques Hobbs DO [address] [place] [address] PCP - General Family Medicine 06/11/23 documented as of this encounter
--- OUTSIDE RECORDS SUMMARY | 2024-12-07 05:36 | XMS_ITS | Referral Summary ---
Author Organization [facility] Address [address] [address] Care Team Providers Care Bakeshop Cleaner Name Role Phone EstelaJacques rg Primary Care [...] today Will request Renal dopplers from [facility] BP and BG control Continue jardiance and ARB Continue follow up with nephrology Assessment & Plan (05/12/2022 7:51 AM CDT): Recommend consultation with receiver dispatcher Referral placed Current moderate episode of major depressive disorder without prior episode 02/10/2022 Assessment & Plan (11/10/2022 4:01 PM CDT): Start fluoxetine 20mg daily Follow up 3 months Assessment & Plan (07/20/2022 10:39 AM HITCH TECHNICIAN): Would like to restart the escitalopram. Prescription [...] provided. Assessment & Plan (07/20/2022 9:26 AM HITCH TECHNICIAN): BMI Follow-up includes: nutrition counseling, exercise counseling [...] provided. Assessment & Plan (09/22/2018 3:54 PM HITCH TECHNICIAN): BMI Follow-up includes: nutrition counseling, exercise counseling and education provided. Encourage diet and exercise Assessment & Plan (08/20/2017 8:32 AM HITCH TECHNICIAN): BMI Follow-up includes: nutrition counseling, exercise counseling and education provided. Palpitations 08/20/2017 Assessment & Plan (08/20/2017 8:45 AM HITCH TECHNICIAN): Well controlled on Bystolic. Only very rarely. Previously correlated to PVCs. Continue follow up with Dr. Washburn and continue Bystolic. Low back pain 08/20/2017 Assessment & Plan (02/22/2020 6:26 PM CDT): History of back surgery Takes tramadol p.r.n. for pain as he is allergic to other analgesics Assessment & Plan (08/20/2017 8:46 AM HITCH TECHNICIAN): H/o discectomy. Well controlled on tramadol 1-2 [...] today Assessment & Plan (09/28/2019 3:34 PM HITCH TECHNICIAN): We will recheck a fasting f lipid profile in the next week Assessment & Plan (01/03/2019 3:49 PM CDT): Reviewed his last lipid profile I think we can safely follow him at this time continue on atorvastatin for Assessment & Plan (09/22/2018 3:55 PM HITCH TECHNICIAN): Recheck a fasting lipid profile in the near future. Assessment & Plan (08/20/2017 8:45 AM HITCH TECHNICIAN): Last LDL was 81 04/2016. Will check [...] 300 Assessment & Plan (07/20/2022 10:36 AM HITCH TECHNICIAN): Patient appears to be having allergic reaction [...] goal today though generally well controlled Continue fkrkkwrotu-tnyqfhdyl-HIFX 10-160-25 Assessment & Plan (11/24/2019 9:42 AM CDT): Well controlled on current regimen Assessment & Plan (09/28/2019 3:34 PM HITCH TECHNICIAN): Well controlled on current regimen Assessment & Plan (01/03/2019 3:49 PM CDT): A controlled on current regimen Assessment & Plan (08/20/2017 8:44 AM HITCH TECHNICIAN): Well controlled. Continue current regimen of bystolic, [...] loss Assessment & Plan (09/28/2019 3:35 PM HITCH TECHNICIAN): A1c in June was 9.0, begin with metformin, Jardiance 25 we will see him in late September Snoring 09/22/2018 02/22/2020 Assessment & Plan (11/24/2019 9:42 AM CDT): He is diagnosed with obstructive sleep apnea continues on CPAP Assessment & Plan (09/22/2018 3:53 PM HITCH TECHNICIAN): He is very concerned about the possibility [...] on file Legal Sex Male 1:03 PM HITCH TECHNICIAN Gender Identity Male 02/13/2019 5:28 PM CDT [...] eGFR 36 mL/min/1. [address] [facility] Comment: Interpretive Data Reference Interval Normal [...] ORDERABLES F inal Result Performing Organization Address [facility] Co de Phone [facility] [address] [address] [employer] [place], [place] [id number] * PSA screen (11/10/2022 4:15 PM CDT) PSA-Total 2.50 <=3.90 ng/mL [facility] Comment: Interpretive Data AGE SEX REFERENCE INTERVAL 0 minutes-150 years Female None 0 minutes-49 years Male None 50-59 years Male 0-3.90 60-69 years Male 0-5.40 70-79 years Male 0-6.20 80-150 years Male 0-6.20 The [employer] PSA Total assay procedure was used. Results from different manufacturers or methods may not be comparable. Serial testing should be performed using the same method. Current interpretive data last revised 22. Blood 11/10/2022 4:15 PM CDT 11/10/2022 5:09 PM CDT Cecily Cornejo MD LAB BLOOD ORDERABLES F inal Result Performing Organization Address [facility] Co de Phone Number [facility] [address] [address] [address] * (ABNORMAL) Albumin Creatinine Ratio, Urine (11/10/2022 4:15 PM CDT) Albumin Ur 312.3 mg/L [facility] MC[facility] Comment: Interpretive Data No reference range established. Current interpretive data was last revised 2019. Testing performed by: [facility], [address] [place] [address]., [address] Creatinine Ur 96.4 mg/dL [facility]MA MCQUEEN Comment: Interpretive Data No reference range established. Current interpretive data was last revised 2019. Testing performed by: [facility], [address] [place] [address]., [address] Albumin Creatinine Ratio, Ur 324(H) 1 - 29 mg/g [facility] MCQUEEN Comment:Testing performed by : [facility], [address] [place] [address]., [address] Urine 11/10/2022 4:15 PM CDT 11/10/2022 8:17 PM CDT Result [facility] Cecily Cornejo MD LAB URINE ORDERABLES F inal Result Performing Organization Address [facility] de Phone Number [facility] [address] [address] Department of Laboratories [place], [place] [phone] * (ABNORMAL) Hemoglobin A1c (11/10/2022 4:15 PM CDT) [facility] Signature Hgb A1C 7.8(H) 4.0 - 5.6 % [facility] Estimated Average Glucose 177 mg/dL [facility] Comment: The ADA recommends reporting an estimated Average Glucose (eAG) with all Hemoglobin A1c results using the equation derived from a study of 507 normal and diabetic adults. Minority populations were underrepresented and children were not included. (Diabetes Care 31:5533-2204, 2008). The eAG is not equivalent to a fasting glucose. Blood 11/10/2022 4:15 PM CDT 11/10/2022 5:09 PM CDT Cecily Cornejo MD LAB BLOOD ORDERABLES F inal Result Performing Organization Address [facility] Co de Phone Number [facility] [address] [facility]. Department [place] [address] * (ABNORMAL) Lipid panel (11/10/2022 4:15 PM CDT) [facility] Signature Cholesterol 163 30 - 199 [...] BLOOD ORDERABLES F inal Result [facility] [address] [facility]. Department of Laboratories [place], [place] [id number] from Last 3 Months or Most Recently Relevant to Health Maintenance Insurance [employer] ACCESS ANTHEM ACCESS Member Subscriber Plan / Payer (Ef fective 2021-Present) Name:Travis Salmeron Relation to Subscriber:Self Name:Travis Salmeron Payer ID:[id number] ([employer]) Type:[employer] Address: [facility] [id number] CHOICE PLUS ANTHEM ACCESS [facility] CHOICE PLUS Care Teams Bakeshop Cleaner Relationship Specialty Start Date End Date Jacques Hobbs DO [address] [place] [address] PCP - General Family Medicine 06/11/23
--- OUTSIDE RECORDS SUMMARY | 2024-12-07 05:36 | XMS_ITS | Clinical Summary ---
Author Organization [facility] Address [address] [address] Care Team Providers Care Braiding Operator Name Role Phone EstelaJacques rg Primary Care [...] Renal dopplers from [facility] BP and BG control Continue jardiance and ARB Continue follow up with nephrology Assessment & Plan (05/12/2022 7:51 AM CDT): Recommend consultation with match up person Referral placed Current moderate episode of major depressive disorder without prior episode 02/10/2022 Assessment & Plan (11/10/2022 4:01 PM CDT): Start fluoxetine 20mg daily Follow up 3 months Assessment & Plan (07/20/2022 10:39 AM STORE CONSULTANT): Would like to restart the escitalopram. Prescription [...] provided. Assessment & Plan (07/20/2022 9:26 AM STORE CONSULTANT): BMI Follow-up includes: nutrition counseling, exercise counseling [...] provided. Assessment & Plan (09/22/2018 3:54 PM STORE CONSULTANT): BMI Follow-up includes: nutrition counseling, exercise counseling and education provided. Encourage diet and exercise Assessment & Plan (08/20/2017 8:32 AM STORE CONSULTANT): BMI Follow-up includes: nutrition counseling, exercise counseling and education provided. Palpitations 08/20/2017 Assessment & Plan (08/20/2017 8:45 AM STORE CONSULTANT): Well controlled on Bystolic. Only very rarely. Previously correlated to PVCs. Continue follow up with Dr. Washburn and continue Bystolic. Low back pain 08/20/2017 Assessment & Plan (02/22/2020 6:26 PM CDT): History of back surgery Takes tramadol p.r.n. for pain as he is allergic to other analgesics Assessment & Plan (08/20/2017 8:46 AM STORE CONSULTANT): H/o discectomy. Well controlled on tramadol 1-2 [...] today Assessment & Plan (09/28/2019 3:34 PM STORE CONSULTANT): We will recheck a fasting f lipid profile in the next week Assessment & Plan (01/03/2019 3:49 PM CDT): Reviewed his last lipid profile I think we can safely follow him at this time continue on atorvastatin for Assessment & Plan (09/22/2018 3:55 PM STORE CONSULTANT): Recheck a fasting lipid profile in the near future. Assessment & Plan (08/20/2017 8:45 AM STORE CONSULTANT): Last LDL was 81 04/2016. Will check [...] 300 Assessment & Plan (07/20/2022 10:36 AM STORE CONSULTANT): Patient appears to be having allergic reaction [...] goal today though generally well controlled Continue [id number] Assessment & Plan (11/24/2019 9:42 AM CDT): Well controlled on current regimen Assessment & Plan (09/28/2019 3:34 PM STORE CONSULTANT): Well controlled on current regimen Assessment & Plan (01/03/2019 3:49 PM CDT): A controlled on current regimen Assessment & Plan (08/20/2017 8:44 AM STORE CONSULTANT): Well controlled. Continue current regimen of bystolic, [...] loss Assessment & Plan (09/28/2019 3:35 PM STORE CONSULTANT): A1c in June was 9.0, begin with metformin, Jardiance 25 we will see him in late September Snoring 09/22/2018 02/22/2020 Assessment & Plan (11/24/2019 9:42 AM CDT): He is diagnosed with obstructive sleep apnea continues on CPAP Assessment & Plan (09/22/2018 3:53 PM STORE CONSULTANT): He is very concerned about the possibility [...] on file Legal Sex Male 1:03 PM STORE CONSULTANT Gender Identity Male 02/13/2019 5:28 PM [...] ORDERABLES F inal Result Performing Organization Address [facility] de Phone Number [facility] [address] [facility] [place] [address] * PSA screen (11/10/2022 4:15 PM CDT) [...] ORDERABLES F inal Result Performing Organization Address [facility]/ZIP Co de Phone Number [facility] [address] [facility] [employer] [place] [place] [address] * (ABNORMAL) Albumin Creatinine Ratio, Urine (11/10/2022 4:15 PM CDT) Albumin Ur 312.3 mg/L FANTASMA MCQUEEN Comment: Interpretive Data No reference range established. Current interpretive data was last revised 2019. Testing performed by: [facility], [address] [place] [address]., [id number] Creatinine Ur 96.4 mg/dL FANTASMA MCQUEEN Comment: Interpretive Data No reference range established. Current interpretive data was last revised 2019. Testing performed by: [facility], [address] [place] [address]., [id number] Albumin Creatinine Ratio, Ur 324(H) 1 - 29 mg/g FANTASMA MCQUEEN Comment:Testing performed by : [facility], [address] [place] [address]., [id number] Urine 11/10/2022 4:15 PM CDT 11/10/2022 8:17 PM CDT Cecily Cornejo MD LAB URINE ORDERABLES F inal Result Performing Organization Address [facility] Phone [facility] [id number] [facility] [employer] [place] [address] * (ABNORMAL) Hemoglobin A1c (11/10/2022 4:15 PM CDT) Hgb A1C 7.8(H) 4.0 - 5.6 % FANTASMA MCQUEEN Estimated Average Glucose 177 mg/dL FANTASMA MCQUEEN Comment: The ADA recommends reporting an estimated Average Glucose (eAG) with all Hemoglobin A1c results using the equation derived from a study of 507 normal and diabetic adults. Minority populations were underrepresented and children were not included. (Diabetes Care 31:6941-4288, 2008). The eAG is not equivalent to a fasting glucose. Blood 11/10/2022 4:15 PM CDT 11/10/2022 5:09 PM CDT us Cecily Cornejo MD LAB BLOOD ORDERABLES F inal Result [facility] MCQUE[facility] [id number] [facility]. [place] [address] * (ABNORMAL) Lipid panel (11/10/2022 4:15 PM [...] BLOOD ORDERABLES F inal Result [facility] [id number] [facility]. [place] [address] from Last 3 Months or Most Recently Relevant to Health Maintenance Insurance ANTHEM ACCESS ANTHEM ACCESS Member Subscriber Plan / Payer (Ef fective 2021-Present) Name:Travis Salmeron Relation to Subscriber:Self Name:Travis Salmeron Payer ID:[id number] (NAIC) Type:Tattva Address: [id number] CHOICE PLUS ANTHEM ACCESS [facility] CHOICE PLUS Care Teams Braiding Operator Relationship Specialty Start Date End Date Jacques Hobbs DO [address] [place] [address] PCP - General Family Medicine 06/11/23
--- NOTE | 2024-12-07 05:41 | ADMGEN ---
This patient, Travis Salmeron, was admitted to IMU Room 207-01. Patient/family oriented to hospital policies and general routines including ID bracelet, bed and alarms, visiting hours, pain management, procedures, bathroom and other care routines, personal items, smoking policy, room service/diet, and visiting hours. Information on how to activate the Rapid Response Team has been discussed. Patient/Family are encouraged to report perceived risks to care and to ask questions if they do not understand what they are told or what they should do.
--- NOTE | 2024-12-07 05:46 | ECG_ITS ---
Test Date: 2024-12-07 06:18:28 Measurements Intervals [place] Rate: 60 P: 44 HI: 188 QRS: -1 QRSD: 89 T: 54 QT: 411 QTc: 414 Interpretive Statements SINUS RHYTHM CONSIDER INFERIOR INFARCT, AGE INDETERMINATE BORDERLINE ST ABNORMALITY- HIGH LATERAL LEADS BASELINE ARTIFACT- I, II AVR, AVL, AVF ABNORMAL ECG Compared to ECG 12/07/2024 02:06:33 NO SIGNIFICANT CHANGE Electronically Signed On 12-07-2024 07:41:58 CDT by Olegario Sung D.O.
--- NOTE | 2024-12-07 06:06 | P.HP_ITS ---
H&P: HPI History of Present Illness Date/Time: 12/07/24 06:06 Chief Complaint: 1. Chest pain Narrative: Travis Salmeron a 79-year-old male with medical history significant for dyslipidemia, depression, hypertension, IDDM 2, obesity and gout About a month ago he developed a central chest pain which is sharp/aching in nature; rated 7-9 intensity; present at rest on exertion; associated with his anxiety, malaise under suction his ADLs. During that event last month he was evaluated in the ER where he was found to be COVID-19 positive and believed to have potential pneumonia for which he was given antibiotic therapy. Symptoms are not associated with cough, bipolar edema, PND, orthopnea, fevers, chills nausea/vomiting. Remained stable until [facility] had developing similar pain which cut across his chest and this failed to resolve He chews tobacco, denies recreational/illicit drug use; does not drink alcohol Is family history significant for coronary artery disease in his mother on most of her siblings with most of them undergoing CABG. Work-up findings: Troponin: 18 >> 585 AST 14; ALT 27; ALP 136; BNP 455; Troponin: 18 >> 585 >> 2880 ECG: Normal sinus rhythm; probable inferior wall infarct what: ST-T wave abnormalities in the lateral leads. Na 138; K 4.5; Cl 101; CO2 26; HGB 11; BUN 50; CR 2.81; GFR 23 HB A1c pending; LA 1 Abdominal US: Diffuse fatty infiltration of with no known modifying factors is intervention with anxiety liver. Associated mild hepatomegaly. CXR: Cardiomegaly. No acute cardiopulmonary pathology. Transferred from [facility], Travis Salmeron will be admitted, evaluated and managed for NSTEMi with chest pain Review of Systems Review of Systems: All systems reviewed & are unremarkable except as noted in HPI and below PMFSH Past Medical History Medical History Chronic kidney disease, stage IV (severe) Depression CKD (chronic kidney disease) GERD (gastroesophageal reflux disease) Type 2 diabetes mellitus Hypertension Carotid stenosis Surgical History Surgical History History of back surgery 2005. Discectomy Previous back surgery History of carotid endarterectomy Family History Family History Father Patient's father is in good health Sibling Patient's sister is in good health Patient's brother is in good health Mother Family history of diabetes mellitus in first degree relative, Onset Age: 64 Patient's mother is Grandparent Family history of heart disease in male family member before age 55 Social History Social History Smoking packs per day: 1.5 Smoking cigarettes per day: 30.0 Years smoked: 20 Smoking pack-years: 30.00 Smoking status: Former smoker Additional smoking assessment comments: Quit 2012. pk year history Alcohol intake: never Substance use: never Do You Feel Safe in your Home?: Yes Lack of Transportation: No Lack of Food: Never True Current Housing: I Have Housing Concerned About Future Housing: No Difficulty Paying Gas/Electric Bills: No Difficulty Paying for Meds: No Currently Unemployed: No Education: Bachelor's Degree Difficulty w/ Childcare or Family Care: No Gender identity (if verbalized by the patient): Male Spiritual care concerns: No Meds Home Medications and Allergies Home Medications ?Medication ?Instructions ?Recorded ?Confirmed ?Type aspirin 325 mg tablet,delayed 325 mg PO DAILY #30 tabs 11/27/22 12/07/24 Rx release hydrochlorothiazide 25 mg tablet 25 mg PO DAILY 03/22/24 12/07/24 History blood sugar diagnostic (Accu-Chek #100 ea 07/21/24 12/07/24 Rx Guide test strips) blood-glucose meter #1 ea 07/21/24 12/07/24 Rx lancets (Accu-Chek Softclix #200 ea 07/21/24 12/07/24 Rx Lancets) amlodipine 10 mg tablet See Rx Instructions .Route 09/05/24 12/07/24 Rx .COMPLEX #90 tabs empagliflozin 10 mg tablet See Rx Instructions .Route 09/15/24 12/07/24 Rx (Jardiance) .COMPLEX #30 tabs pen needle, diabetic 31 gauge x #100 ea 10/09/24 12/07/24 Rx 3/16 (BD Ultra-Fine Mini Pen Needle) bupropion HCl 300 mg 24 hr tablet, See Rx Instructions .Route 10/10/24 12/07/24 Rx extended release .COMPLEX #90 tabs irbesartan 300 mg tablet See Rx Instructions .Route 10/11/24 12/07/24 Rx .COMPLEX #90 tabs insulin lispro 100 unit/mL 12 unit (0.12 mL) subcut TIDWMEAL 10/24/24 12/07/24 Rx subcutaneous pen #15 mL atorvastatin 40 mg tablet See Rx Instructions .Route 10/30/24 12/07/24 Rx .COMPLEX #60 tabs clonidine HCl 0.2 mg tablet 0.2 mg PO BID 11/09/24 12/07/24 History insulin glargine 100 unit/mL 22 unit subcut HS 11/09/24 12/07/24 History subcutaneous solution (Lantus U-100 Insulin) nebivolol 20 mg tablet (Bystolic) 20 mg PO 3XW 11/09/24 12/07/24 History blood-glucose sensor (FreeStyle #2 ea 12/01/24 12/07/24 Rx Kavon 3 Sensor device) allopurinol 100 mg tablet See Rx Instructions .Route 12/04/24 12/07/24 Rx .COMPLEX #90 tabs escitalopram oxalate 10 mg tablet See Rx Instructions .Route 12/04/24 12/07/24 Rx .COMPLEX #90 tabs semaglutide 1 mg/dose (4 mg/3 mL) See Rx Instructions .Route 12/06/24 12/07/24 Rx subcutaneous pen injector (Ozempic) .COMPLEX #3 mL Allergies Allergy/AdvReac Type Severity Reaction Status Date / Time NSAIDS (Non-Steroidal Allergy Unknown Swelling Verified 12/06/24 23:40 Anti-Inflamma of Lip/Tongue/Throat clopidogrel Allergy Hives Verified 12/06/24 23:40 lidocaine Allergy Hives Verified 12/06/24 23:40 ropivacaine Allergy Hives Verified 12/06/24 23:40 Succinimides Allergy Anaphylactic Verified 12/06/24 23:40 Shock succinylcholine Allergy Anaphylactic Verified 12/06/24 23:40 Shock yellow dye Allergy Hives Verified 12/06/24 23:40 yellow dyes Allergy Unknown Unknown Uncoded 12/06/24 23:40 tartrazine Allergy Unknown Uncoded 12/06/24 23:40 Exam Const: General: comfortable and no acute distress HENMT: Ears: TM's normal bilaterally Face/Nose/Sinus: Normal nares present Eyes: General: appearance normal, both eyes and all related structures Sclera: sclerae normal Pupils: Equal, round and reactive pupils present EOM: EOMs intact bilaterally Neck: Neck: supple Resp: Effort & Inspection: normal respiratory effort Cardio: Rate: regular rate Rhythm: regular rhythm GI: Inspection: distended Skin: General skin exam: normal color Neuro: General: gait normal Speech: normal speech Motor exam (neuro): 5/5 motor strength present throughout Psych: Mental Status: mental status grossly normal Affect: Anxious affect present Assessment and Plan Assessment and plan (1) Hypertension: Code(s): I10 - Essential (primary) hypertension Status: Acute (2) GERD (gastroesophageal reflux disease): Code(s): K21.9 - Gastro-esophageal reflux disease without esophagitis Status: Acute (3) Diabetes mellitus with chronic kidney disease: Code(s): E11.22 - Type 2 diabetes mellitus with diabetic chronic kidney disease Status: Acute (4) Dyslipidemia: Code(s): E78.5 - Hyperlipidemia, unspecified Status: Acute Plan Acute and principal conditions 1. Chest pain 2. NSTEMi 3. Elevated BNP Rx: A. Telemetry monitoring; ECHO B. Cardiology consult C. Troponin trending with ECG Chronic and stable conditions 1. Obesity, BMI 33 2. Hypertension. 3. Dyslipidemia 4. Hx of depression. 5. Hypertension. 6. IDDM2. 7. Gout 8. Tobacco dependence. cessation counseling, 3 minutes Miscellaneous care 1. Code status. Full 2. Nutrition. heart healthy 3. VTE prophylaxis. SCDs; heparin gtt Quality VTE Prophylaxis VTE prophylaxis: mechanical ordered and pharmacologic ordered Hospitalist [facility] Advance Care Plan I have confirmed that the patient's Advanced Care Plan is present, code status is documented, or surrogate decision maker is listed in patient medical record.: Yes Medication Reconciliation I have utilized all available resources to obtain, update and review the patients current medications (includes all prescriptions, OTC, herbals, cannabis, and nutritional supplements).: Yes The patient is not eligible for med reconciliation; the patient is in a emergent medical situation where delaying treatment would jeopardize the patients health.: Yes
[2024-12-07 06:16] LABS: Basophils Percent Auto 0.3 % (0.2-1.2); Eosinophils Absolute Auto 0.5 K/mm3 (0-0.3); Eosinophils Percent Auto 4.2 % (0-4.4); Hematocrit 44.4 % (42.0-52.0); Hemoglobin 14.7 g/dL (14.0-18.0); Immature Granulocyte Absolute 0.07 K/mm3 (0.00-0.031); Immature Granulocyte Percent A 0.6 % (0-0.5); Lymphocytes Absolute Auto 1.76 K/mm3 (0.9-3.2); Lymphocytes Percent Auto 15.2 % (18.3-44.2); Mean Corpuscular HGB Conc 33.1 g/dl (32-36); Mean Corpuscular Hemoglobin 28.4 pg (26-34); Mean Corpuscular Volume 85.9 fl (80-100); Mean Platelet Volume 9.8 fl (7.4-10.4); Monocytes Absolute Auto 0.8 K/mm3 (0.1-0.6); Monocytes Percent Auto 6.5 % (2.6-8.5); Neutrophils Absolute Auto 8.4 K/mm3 (1.3-6.7); Neutrophils Percent Auto 73.2 % (45.5-73.1); Platelet Count Result 182 k/mm3 (150-375); Red Blood Count 5.17 M/mm3 (4.6-6.20); Red Cell Distribution Width 14.6 % (11.5-14.5); White Blood Count 11.6 K/mm3 (4.5-10.0)
[2024-12-07 06:25] LABS: INR 0.9
[2024-12-07 06:26] LABS: Partial Thromboplastin Time 36.2 Seconds (22.3-36.8)
[2024-12-07] MEDS: HEPARIN SOD/D5W 100 UNITS/ML 25,000 UNITS/250 ML BAG 10 UNITS IV CONT (06:30)
[2024-12-07 06:44] LABS: Cholesterol 152 mg/dL (0-200); HDL Direct 37 mg/dL; Triglycerides 348 mg/dL (<150)
[2024-12-07 06:55] LABS: LDL Cholesterol Direct 52 mg/dL
--- NOTE | 2024-12-07 08:27 | P.CONCA_ITS ---
Assessment and Plan Assessment and plan (1) Non-ST elevated myocardial infarction (non-STEMI): Code(s): I21.4 - Non-ST elevation (NSTEMI) myocardial infarction Status: Acute Assessment and Plan: Chest pain with elevated troponin 2. Obtain echo. On heparin drip, aspirin, Atorvastatin, Bystolic. Risks/benefits/alternative to LHC discuss with patient and he is agreeable to it. Consult HCG for it. (2) Hypertension: Code(s): I10 - Essential (primary) hypertension Status: Acute Assessment and Plan: Stable. (3) Dyslipidemia: Code(s): E78.5 - Hyperlipidemia, unspecified Status: Acute Assessment and Plan: On Atovastatin. (4) Chronic kidney disease, stage IV (severe): Code(s): N18.4 - Chronic kidney disease, stage 4 (severe) Status: Acute History of Present Illness History of Present Illness Consult date/time: 12/07/24 08:27 Reason For Visit: NSTEMI; Hypertensive urgency Narrative: 59 yr old man who is my regular cardiology patient presents to [place] ER for chest pain. He has a history of CEA 2016 at [facility], DM, hypertension, dyslipidemia, CKD stage IV, OSMEL on CPAP (sees PCP), food yellow dye allergy with anaphylaxis, family history of CAD in his mother and mother's side. States yesterday at rest he had sudden onset chest pressure radiating to both arms and is intermittent. He can walk a few blocks or chop wood and no chest pains. Denies orthopnea, PND, edema, dizziness, palpitations. Cardiovascular Procedures Echo/MUGA:: 03/30/24 Echo: EF 60-65%, diastolic dysfunction (E/e' 11), trace PI. Electrophysiology:: 03/16/24 EKG: Sinus rhythm, consider inferior infarct, age indeterminate. Stress Tests:: 04/24/24 Treadmill nuclear: Abnormal with infarct and partial ischemia of anteroapical/apical/apical lateral segments. Review of Systems 2 Review of Systems: All systems reviewed & are unremarkable except as noted in HPI and below Constitutional: Constitutional: Reports as per HPI, Denies chills and Denies fever(s) Cardiovascular: Cardiovascular: Reports as per HPI, Reports chest pain and Denies irregular heart rhythm Respiratory: Respiratory: Reports as per HPI and Denies dyspnea Gastrointestinal: Gastrointestinal: Reports as per HPI and Denies abdominal pain Genitourinary: Genitourinary: Reports as per HPI and Denies dysuria Musculoskeletal: Musculoskeletal: Reports as per HPI Neurologic: Reports as per HPI, Denies dizziness and Denies syncope [facility] Past Medical History Medical History Chronic kidney disease, stage IV (severe) Depression CKD (chronic kidney disease) GERD (gastroesophageal reflux disease) Type 2 diabetes mellitus Hypertension Carotid stenosis Surgical History Surgical History History of back surgery 2005. Discectomy Previous back surgery History of carotid endarterectomy Family History Family History Father Patient's father is in good health Sibling Patient's sister is in good health Patient's brother is in good health Mother Family history of diabetes mellitus in first degree relative, Onset Age: 64 Patient's mother is Grandparent Family history of heart disease in male family member before age 55 Social History Social History Smoking packs per day: 1.5 Smoking cigarettes per day: 30.0 Years smoked: 20 Smoking pack-years: 30.00 Smoking status: Former smoker Additional smoking assessment comments: Quit 2012. 28 pk year history Alcohol intake: never Substance use: never Do You Feel Safe in your Home?: Yes Lack of Transportation: No Lack of Food: Never True Current Housing: I Have Housing Concerned About Future Housing: No Difficulty Paying Gas/Electric Bills: No Difficulty Paying for Meds: No Currently Unemployed: No Education: Bachelor's Degree Difficulty w/ Childcare or Family Care: No Gender identity (if verbalized by the patient): Male Spiritual care concerns: No Meds Home Medications and Allergies Home Medications ?Medication ?Instructions ?Recorded ?Confirmed ?Type aspirin 325 mg tablet,delayed 325 mg PO DAILY #30 tabs 11/27/22 12/07/24 Rx release hydrochlorothiazide 25 mg tablet 25 mg PO DAILY 03/22/24 12/07/24 History blood sugar diagnostic (Accu-Chek #100 ea 07/21/24 12/07/24 Rx Guide test strips) blood-glucose meter #1 ea 07/21/24 12/07/24 Rx lancets (Accu-Chek Softclix #200 ea 07/21/24 12/07/24 Rx Lancets) amlodipine 10 mg tablet See Rx Instructions .Route 09/05/24 12/07/24 Rx .COMPLEX #90 tabs empagliflozin 10 mg tablet See Rx Instructions .Route 09/15/24 12/07/24 Rx (Jardiance) .COMPLEX #30 tabs pen needle, diabetic 31 gauge x #100 ea 10/09/24 12/07/24 Rx 3/16 (BD Ultra-Fine Mini Pen Needle) bupropion HCl 300 mg 24 hr tablet, See Rx Instructions .Route 10/10/24 12/07/24 Rx extended release .COMPLEX #90 tabs irbesartan 300 mg tablet See Rx Instructions .Route 10/11/24 12/07/24 Rx .COMPLEX #90 tabs insulin lispro 100 unit/mL 12 unit (0.12 mL) subcut TIDWMEAL 10/24/24 12/07/24 Rx subcutaneous pen #15 mL atorvastatin 40 mg tablet See Rx Instructions .Route 10/30/24 12/07/24 Rx .COMPLEX #60 tabs clonidine HCl 0.2 mg tablet 0.2 mg PO BID 11/09/24 12/07/24 History insulin glargine 100 unit/mL 22 unit subcut HS 11/09/24 12/07/24 History subcutaneous solution (Lantus U-100 Insulin) nebivolol 20 mg tablet (Bystolic) 20 mg PO 3XW 11/09/24 12/07/24 History blood-glucose sensor (FreeStyle #2 ea 12/01/24 12/07/24 Rx Kavon 3 Sensor device) allopurinol 100 mg tablet See Rx Instructions .Route 12/04/24 12/07/24 Rx .COMPLEX #90 tabs escitalopram oxalate 10 mg tablet See Rx Instructions .Route 12/04/24 12/07/24 Rx .COMPLEX #90 tabs semaglutide 1 mg/dose (4 mg/3 mL) See Rx Instructions .Route 12/06/24 12/07/24 Rx subcutaneous pen injector (Ozempic) .COMPLEX #3 mL Allergies Allergy/AdvReac Type Severity Reaction Status Date / Time NSAIDS (Non-Steroidal Allergy Unknown Swelling Verified 12/06/24 23:40 Anti-Inflamma of Lip/Tongue/Throat clopidogrel Allergy Hives Verified 12/06/24 23:40 lidocaine Allergy Hives Verified 12/06/24 23:40 ropivacaine Allergy Hives Verified 12/06/24 23:40 Succinimides Allergy Anaphylactic Verified 12/06/24 23:40 Shock succinylcholine Allergy Anaphylactic Verified 12/06/24 23:40 Shock yellow dye Allergy Hives Verified 12/06/24 23:40 yellow dyes Allergy Unknown Unknown Uncoded 12/06/24 23:40 tartrazine Allergy Unknown Uncoded 12/06/24 23:40 Vital Signs Vital Signs - 24 hr 12/07/24 05:30 12/07/24 06:00 12/07/24 06:36 Temperature 97.9 F Pulse Rate 61 61 Respiratory Rate 17 Blood Pressure 201/86 H Pulse Oximetry 100 Oxygen Delivery Room Air 12/07/24 07:28 Temperature 97.6 F Pulse Rate 60 Respiratory Rate 20 Blood Pressure 174/79 H Pulse Oximetry 98 Oxygen Delivery Exam 2 Const: General: cooperative, healthy appearing and comfortable Resp: Auscultation: clear to auscultation bilaterally, no crackles, no rales, no rhonchi and no wheezes Cardio: Rate: regular rate Rhythm: regular rhythm Heart sounds: no murmurs Peripheral pulses: dorsalis pedis present GI: GI Palp: No abdominal tenderness and Yes Soft to palpation Neuro: General: oriented to person, oriented to place and oriented to time Extrem: Right lower extremity: no edema Left lower extremity: no edema Results Labs and Meds 12/07/24 06:04 Lab results: Cardiac Enzymes 12/07/24 Range/Units 06:04 Troponin I 2.880 H* (0.000-0.034) ng/mL Coagulation 12/07/24 Range/Units 06:04 PT 13.0 (11.1-14.7) Seconds APTT 36.2 (22.3-36.8) Seconds Lipids 12/07/24 Range/Units 06:04 Triglycerides 348 H (<150) mg/dL Cholesterol 152 (0-200) mg/dL CBC 12/07/24 Range/Units 06:04 WBC 11.6 H (4.5-10.0) K/mm3 RBC 5.17 (4.6-6.20) M/mm3 Hgb 14.7 (14.0-18.0) g/dL Hct 44.4 (42.0-52.0) % Plt Count 182 (150-375) k/mm3 Lymph # (Auto) 1.76 (0.9-3.2) K/mm3 [place] # (Auto) 0.8 H (0.1-0.6) K/mm3 Eos # (Auto) 0.5 H (0-0.3) K/mm3 Baso # (Auto) 0.0 (0.0-0.1) K/mm3 Patient Weight 12/07/24 23:59 Weight 107.4 kg
--- NOTE | 2024-12-07 09:02 | PM.CNCAR ---
Assessment and Plan Assessment and plan (1) Non-ST elevated myocardial infarction (non-STEMI): Code(s): I21.4 - Non-ST elevation (NSTEMI) myocardial infarction Status: Acute Assessment and Plan: Will proceed with [facility]. Further recommendations and plan pending results of [facility]. History of Present Illness History of Present Illness Consult date/time: 12/07/24 09:02 Requesting physician: Olegario Sung, Consult reason: Other ([facility]) Reason For Visit: NSTEMI; Hypertensive urgency Narrative: We are consulted for [facility]. This is a 59 year old male with carotid artery disease s/p CEA, hypertension, hyperlipidemia, diabetes mellitus, CKD stage IV, OSMEL, family history of CAD who is admitted to [place] for NSTEMI. Has been having chest pain. Troponin is 2.88. EKG shows sinus rhythm, nonspecific STTW abnormality. Dr. Sung is primary nurse monitoring who has referred patient for [facility]. Review of Systems Review of Systems: All systems reviewed & are unremarkable except as noted in HPI and below (HPI) [facility] Past Medical History Medical History Chronic kidney disease, stage IV (severe) Depression CKD (chronic kidney disease) GERD (gastroesophageal reflux disease) Type 2 diabetes mellitus Hypertension Carotid stenosis Surgical History Surgical History History of back surgery 2005. Discectomy Previous back surgery History of carotid endarterectomy Family History Family History Father Patient's father is in good health Sibling Patient's sister is in good health Patient's brother is in good health Mother Family history of diabetes mellitus in first degree relative, Onset Age: 64 Patient's mother is Grandparent Family history of heart disease in male family member before age 55 Social History Social History Smoking packs per day: 1.5 Smoking cigarettes per day: 30.0 Years smoked: 20 Smoking pack-years: 30.00 Smoking status: Former smoker Additional smoking assessment comments: Quit 2012. 28 pk year history Alcohol intake: never Substance use: never Do You Feel Safe in your Home?: Yes Lack of Transportation: No Lack of Food: Never True Current Housing: I Have Housing Concerned About Future Housing: No Difficulty Paying Gas/Electric Bills: No Difficulty Paying for Meds: No Currently Unemployed: No Education: Bachelor's Degree Difficulty w/ Childcare or Family Care: No Gender identity (if verbalized by the patient): Male Spiritual care concerns: No Meds Home Medications and Allergies Home Medications ?Medication ?Instructions ?Recorded ?Confirmed ?Type aspirin 325 mg tablet,delayed 325 mg PO DAILY #30 tabs 11/27/22 12/07/24 Rx release hydrochlorothiazide 25 mg tablet 25 mg PO DAILY 03/22/24 12/07/24 History blood sugar diagnostic (Accu-Chek #100 ea 07/21/24 12/07/24 Rx Guide test strips) blood-glucose meter #1 ea 07/21/24 12/07/24 Rx lancets (Accu-Chek Softclix #200 ea 07/21/24 12/07/24 Rx Lancets) amlodipine 10 mg tablet See Rx Instructions .Route 09/05/24 12/07/24 Rx .COMPLEX #90 tabs empagliflozin 10 mg tablet See Rx Instructions .Route 09/15/24 12/07/24 Rx (Jardiance) .COMPLEX #30 tabs pen needle, diabetic 31 gauge x #100 ea 10/09/24 12/07/24 Rx 3/16 (BD Ultra-Fine Mini Pen Needle) bupropion HCl 300 mg 24 hr tablet, See Rx Instructions .Route 10/10/24 12/07/24 Rx extended release .COMPLEX #90 tabs irbesartan 300 mg tablet See Rx Instructions .Route 10/11/24 12/07/24 Rx .COMPLEX #90 tabs insulin lispro 100 unit/mL 12 unit (0.12 mL) subcut TIDWMEAL 10/24/24 12/07/24 Rx subcutaneous pen #15 mL atorvastatin 40 mg tablet See Rx Instructions .Route 10/30/24 12/07/24 Rx .COMPLEX #60 tabs clonidine HCl 0.2 mg tablet 0.2 mg PO BID 11/09/24 12/07/24 History insulin glargine 100 unit/mL 22 unit subcut HS 11/09/24 12/07/24 History subcutaneous solution (Lantus U-100 Insulin) nebivolol 20 mg tablet (Bystolic) 20 mg PO 3XW 11/09/24 12/07/24 History blood-glucose sensor (FreeStyle #2 ea 12/01/24 12/07/24 Rx Kavon 3 Sensor device) allopurinol 100 mg tablet See Rx Instructions .Route 12/04/24 12/07/24 Rx .COMPLEX #90 tabs escitalopram oxalate 10 mg tablet See Rx Instructions .Route 12/04/24 12/07/24 Rx .COMPLEX #90 tabs semaglutide 1 mg/dose (4 mg/3 mL) See Rx Instructions .Route 12/06/24 12/07/24 Rx subcutaneous pen injector (Ozempic) .COMPLEX #3 mL Allergies Allergy/AdvReac Type Severity Reaction Status Date / Time NSAIDS (Non-Steroidal Allergy Unknown Swelling Verified 12/06/24 23:40 Anti-Inflamma of Lip/Tongue/Throat clopidogrel Allergy Hives Verified 12/06/24 23:40 lidocaine Allergy Hives Verified 12/06/24 23:40 ropivacaine Allergy Hives Verified 12/06/24 23:40 Succinimides Allergy Anaphylactic Verified 12/06/24 23:40 Shock succinylcholine Allergy Anaphylactic Verified 12/06/24 23:40 Shock yellow dye Allergy Hives Verified 12/06/24 23:40 yellow dyes Allergy Unknown Unknown Uncoded 12/06/24 23:40 tartrazine Allergy Unknown Uncoded 12/06/24 23:40 Vital Signs Vital Signs - 24 hr 12/07/24 05:30 12/07/24 06:00 12/07/24 06:36 Temperature 36.6 C Pulse Rate 61 61 Respiratory Rate 17 Blood Pressure 201/86 H Pulse Oximetry 100 Oxygen Delivery Room Air 12/07/24 07:28 Temperature 36.4 C Pulse Rate 60 Respiratory Rate 20 Blood Pressure 174/79 H Pulse Oximetry 98 Oxygen Delivery Exam Const: General: no acute distress HENMT: Mouth: Yes moist mucous membranes Eyes: General: appearance normal, both eyes and all related structures Sclera: sclerae normal Resp: Effort & Inspection: normal respiratory effort Cardio: Rate: regular rate Rhythm: regular rhythm Skin: General skin exam: normal color Neuro: Speech: normal speech Psych: Mental Status: mental status grossly normal Affect: normal affect Results Labs and Meds 12/07/24 06:04 Lab results: Cardiac Enzymes 12/07/24 Range/Units 06:04 Troponin I 2.880 H* (0.000-0.034) ng/mL Coagulation 12/07/24 Range/Units 06:04 PT 13.0 (11.1-14.7) Seconds APTT 36.2 (22.3-36.8) Seconds Lipids 12/07/24 Range/Units 06:04 Triglycerides 348 H (<150) mg/dL Cholesterol 152 (0-200) mg/dL CBC 12/07/24 Range/Units 06:04 WBC 11.6 H (4.5-10.0) K/mm3 RBC 5.17 (4.6-6.20) M/mm3 Hgb 14.7 (14.0-18.0) g/dL Hct 44.4 (42.0-52.0) % Plt Count 182 (150-375) k/mm3 Lymph # (Auto) 1.76 (0.9-3.2) K/mm3 [place] # (Auto) 0.8 H (0.1-0.6) K/mm3 Eos # (Auto) 0.5 H (0-0.3) K/mm3 Baso # (Auto) 0.0 (0.0-0.1) K/mm3 Patient Weight 12/07/24 23:59 Weight 107.4 kg
--- NOTE | 2024-12-07 09:05 | WPDMODSED ---
Moderate Sedation Note-Pt Data Patient Data Diagnosis: NSTEMI Present Complaint: NSTEMI Procedure to be performed/Plan: Coronary angiography, left heart cath, +/- PCI Allergies Allergy/AdvReac Type Severity Reaction Status Date / Time NSAIDS (Non-Steroidal Allergy Unknown Swelling Verified 12/06/24 23:40 Anti-Inflamma of Lip/Tongue/Throat clopidogrel Allergy Hives Verified 12/06/24 23:40 lidocaine Allergy Hives Verified 12/06/24 23:40 ropivacaine Allergy Hives Verified 12/06/24 23:40 Succinimides Allergy Anaphylactic Verified 12/06/24 23:40 Shock succinylcholine Allergy Anaphylactic Verified 12/06/24 23:40 Shock yellow dye Allergy Hives Verified 12/06/24 23:40 yellow dyes Allergy Unknown Unknown Uncoded 12/06/24 23:40 tartrazine Allergy Unknown Uncoded 12/06/24 23:40 Home Medications ?Medication ?Instructions ?Recorded ?Confirmed ?Type aspirin 325 mg tablet,delayed 325 mg PO DAILY #30 tabs 11/27/22 12/07/24 Rx release hydrochlorothiazide 25 mg tablet 25 mg PO DAILY 03/22/24 12/07/24 History blood sugar diagnostic (Accu-Chek #100 ea 07/21/24 12/07/24 Rx Guide test strips) blood-glucose meter #1 ea 07/21/24 12/07/24 Rx lancets (Accu-Chek Softclix #200 ea 07/21/24 12/07/24 Rx Lancets) amlodipine 10 mg tablet See Rx Instructions .Route 09/05/24 12/07/24 Rx .COMPLEX #90 tabs empagliflozin 10 mg tablet See Rx Instructions .Route 09/15/24 12/07/24 Rx (Jardiance) .COMPLEX #30 tabs pen needle, diabetic 31 gauge x #100 ea 10/09/24 12/07/24 Rx 3/16 (BD Ultra-Fine Mini Pen Needle) bupropion HCl 300 mg 24 hr tablet, See Rx Instructions .Route 10/10/24 12/07/24 Rx extended release .COMPLEX #90 tabs irbesartan 300 mg tablet See Rx Instructions .Route 10/11/24 12/07/24 Rx .COMPLEX #90 tabs insulin lispro 100 unit/mL 12 unit (0.12 mL) subcut TIDWMEAL 10/24/24 12/07/24 Rx subcutaneous pen #15 mL atorvastatin 40 mg tablet See Rx Instructions .Route 10/30/24 12/07/24 Rx .COMPLEX #60 tabs clonidine HCl 0.2 mg tablet 0.2 mg PO BID 11/09/24 12/07/24 History insulin glargine 100 unit/mL 22 unit subcut HS 11/09/24 12/07/24 History subcutaneous solution (Lantus U-100 Insulin) nebivolol 20 mg tablet (Bystolic) 20 mg PO 3XW 11/09/24 12/07/24 History blood-glucose sensor (FreeStyle #2 ea 12/01/24 12/07/24 Rx Kavon 3 Sensor device) allopurinol 100 mg tablet See Rx Instructions .Route 12/04/24 12/07/24 Rx .COMPLEX #90 tabs escitalopram oxalate 10 mg tablet See Rx Instructions .Route 12/04/24 12/07/24 Rx .COMPLEX #90 tabs semaglutide 1 mg/dose (4 mg/3 mL) See Rx Instructions .Route 12/06/24 12/07/24 Rx subcutaneous pen injector (Ozempic) .COMPLEX #3 mL Current Medications: Active Medications Acetaminophen (Acetaminophen 325 Mg Tablet) 650 mg PO Q4H PRN PRN Reason: Mild Pain (1-3) or Fever Bisacodyl (Bisacodyl 10 Mg Suppository) 10 mg RECTAL ONCE PRN PRN Reason: Constipation Heparin Sodium (Porcine) (Heparin Sodium 5,000 Units/Ml Vial) 4,000 units IV PUSH PRN PRN PRN Reason: aPTT less than 55 seconds Heparin Sodium (Porcine) (Heparin Sodium 5,000 Units/Ml Vial) 3,500 units IV PUSH PRN PRN PRN Reason: aPTT 55 - 70 seconds Heparin Sodium/Dextrose (Heparin Sodium/D5w 100 Units/Ml) 25,000 units in 250 mls @ 10 mls/hr IV CONT .Q24H [facility]; Protocol Last Admin: 12/07/24 06:30 Dose: 1,000 units/hr, 10 mls/hr Perflutren Lipid Microsphere (Perflutren Lipid Microspheres 1.5 Ml Vial Diluted To 10 Ml Total Volume) 0 ml IV PUSH ONCE PRN; Protocol PRN Reason: adequate visualization Stop: 12/10/24 08:16 Prochlorperazine Edisylate (Prochlorperazine Edisylate 10 Mg/2 Ml Vial) 10 mg IV PUSH Q6H PRN PRN Reason: Nausea And Vomiting Sedation/Anesthesia: No previous sedation/anesthesia problems (including family history). [facility] Past Medical History Medical History Chronic kidney disease, stage IV (severe) Depression CKD (chronic kidney disease) GERD (gastroesophageal reflux disease) Type 2 diabetes mellitus Hypertension Carotid stenosis Surgical History Surgical History History of back surgery 2005. Discectomy Previous back surgery History of carotid endarterectomy Family History Family History Father Patient's father is in good health Sibling Patient's sister is in good health Patient's brother is in good health Mother Family history of diabetes mellitus in first degree relative, Onset Age: 64 Patient's mother is Grandparent Family history of heart disease in male family member before age 55 Social History Social History Smoking packs per day: 1.5 Smoking cigarettes per day: 30.0 Years smoked: 20 Smoking pack-years: 30.00 Smoking status: Former smoker Additional smoking assessment comments: Quit 2012. 28 pk year history Alcohol intake: never Substance use: never Do You Feel Safe in your Home?: Yes Lack of Transportation: No Lack of Food: Never True Current Housing: I Have Housing Concerned About Future Housing: No Difficulty Paying Gas/Electric Bills: No Difficulty Paying for Meds: No Currently Unemployed: No Education: Bachelor's Degree Difficulty w/ Childcare or Family Care: No Gender identity (if verbalized by the patient): Male Spiritual care concerns: No Mod Sed Physical Exam Physical Exam Pre Procedural Exam: Normal: Appearance, Lungs, Heart Rate, Heart Rhythm, Neuro Exam, Extremities and Skin Hours since solid foods: 12 Hours since liquid intake: 8 Mallampati Classification: class III Internal Medicine - PN: Obj Da Vital Signs Vital Signs: Vital Signs - 24 hr 12/07/24 05:30 12/07/24 06:00 12/07/24 06:36 Temperature 36.6 C Pulse Rate 61 61 Respiratory Rate 17 Blood Pressure 201/86 H Pulse Oximetry 100 Oxygen Delivery Room Air 12/07/24 07:28 Temperature 36.4 C Pulse Rate 60 Respiratory Rate 20 Blood Pressure 174/79 H Pulse Oximetry 98 Oxygen Delivery Meds/Results Medications: Active Medications Generic Name Dose Route Start Last Admin Trade Name Freq PRN Reason Stop Dose Admin Acetaminophen 650 mg 12/07/24 05:43 Acetaminophen 325 Mg Tablet PO Q4H PRN Mild Pain (1-3) or Fever Bisacodyl 10 mg 12/07/24 05:43 Bisacodyl 10 Mg Suppository RECTAL ONCE PRN Constipation Heparin Sodium (Porcine) 4,000 units 12/07/24 05:45 Heparin Sodium 5,000 Units/Ml Vial IV PUSH PRN PRN aPTT less than 55 seconds Heparin Sodium (Porcine) 3,500 units 12/07/24 05:45 Heparin Sodium 5,000 Units/Ml Vial IV PUSH PRN PRN aPTT 55 - 70 seconds Heparin Sodium/Dextrose 25,000 units in 250 mls @ 10 mls/hr 12/07/24 05:45 12/07/24 06:30 Heparin Sodium/D5w 100 Units/Ml IV CONT 1,000 units/hr .Q24H [place] 10 mls/hr Administration Protocol 1,000 UNITS/HR Perflutren Lipid Microsphere 0 ml 12/07/24 08:16 Perflutren Lipid Microspheres 1.5 Ml Vial Diluted To 10 Ml Total Volume IV PUSH 12/10/24 08:16 ONCE PRN adequate visualization Protocol Prochlorperazine Edisylate 10 mg 12/07/24 05:43 Prochlorperazine Edisylate 10 Mg/2 Ml Vial IV PUSH Q6H PRN Nausea And Vomiting Labs 12/07/24 06:04 Labs: Laboratory Results - last 24 hr 12/07/24 06:04 WBC 11.6 H RBC 5.17 Hgb 14.7 Hct 44.4 MCV 85.9 MCH 28.4 MCHC 33.1 RDW 14.6 H Plt Count 182 MPV 9.8 Immature Gran % (Auto) 0.6 H Neut % (Auto) 73.2 H Lymph % (Auto) 15.2 L [place] % (Auto) 6.5 Eos % (Auto) 4.2 Baso % (Auto) 0.3 Lymph # (Auto) 1.76 [place] # (Auto) 0.8 H Eos # (Auto) 0.5 H Baso # (Auto) 0.0 Abs Immat Gran (auto) 0.07 H Absolute Neuts (auto) 8.4 H Absolute Nucleated RBC 0.000 Nucleated RBC % 0.0 PT 13.0 INR 0.9 APTT 36.2 Troponin I 2.880 H* Triglycerides 348 H Cholesterol 152 LDL Cholesterol Direct 52 HDL Direct 37 ASA Classification/Sedation ASA Classification/Sedation ASA Class: III Emergent: No Risks: Risks, benefits and alternatives explained and patient/family accepted plan for sedation. Patient re-evaluated immediately prior to sedation.
--- NOTE | 2024-12-07 09:17 | PM.IMPN ---
Progress Note: A&P Assessment and Plan (1) Non-ST elevated myocardial infarction (non-STEMI): Code(s): I21.4 - Non-ST elevation (NSTEMI) myocardial infarction Status: Acute Assessment and Plan: EKG: Normal sinus rhythm; probable inferior wall infarct what: ST-T wave abnormalities in the lateral leads.. Troponin: 18 >> 585 >> 2.880 Cardiology consulted, plan for [facility] Echocardiogram pending 12/07 Taken for [facility], found to have multivessel coronary artery disease, elevated LVEDP of 27mmHg. Cardiology recommends CT Surgery consultation for consideration of CABG, will initiate transfer (2) Hypertension: Code(s): I10 - Essential (primary) hypertension Status: Acute Assessment and Plan: Chronic Continue HCTZ, Irbesartan (3) Diabetes mellitus with chronic kidney disease: Code(s): E11.22 - Type 2 diabetes mellitus with diabetic chronic kidney disease Status: Acute Assessment and Plan: - hypoglycemia protocol - POC blood glucose ACHS - correct regimen ordered - low dose TIDWM and HS - A1C pending (4) Dyslipidemia: Code(s): E78.5 - Hyperlipidemia, unspecified Status: Acute Assessment and Plan: Continue Atorvastatin (5) Gout: Qualifiers: Gout etiology: due to renal impairment Code(s): M10.9 - Gout, unspecified Status: Acute Assessment and Plan: Continue Allopurinol (6) GERD (gastroesophageal reflux disease): Code(s): K21.9 - Gastro-esophageal reflux disease without esophagitis Status: Acute Assessment and Plan: Chronic Time Spent With Patient Time: - Subjective Date/time seen: 12/07/24 09:17 Interval history: 59 year old male with carotid artery disease s/p CEA, hypertension, hyperlipidemia, diabetes mellitus, CKD stage IV, OSMEL, family history of CAD who is admitted to [place] for NSTEMI 12/07/2024 Examination was performed after [facility]. Patient examined sitting comfortably in bed. At this time he denies any chest pain, shortness of breath, n/v, abdominal pain, dizziness. [facility] findings suggest multivessel coronary artery disease, elevated LVEDP of 27mmHg. Recommend CT Surgery consultation for consideration of CABG. Will need transfer. This process will be initiated by Cardiology. Pt is otherwise stable at this time. Review of Systems Review of Systems: All systems reviewed & are unremarkable except as noted in HPI and below Exam Const: General: comfortable and no acute distress HENMT: Ears: TM's normal bilaterally Face/Nose/Sinus: Normal nares present Eyes: General: appearance normal, both eyes and all related structures Sclera: sclerae normal Pupils: Equal, round and reactive pupils present EOM: EOMs intact bilaterally Neck: Neck: supple Resp: Effort & Inspection: normal respiratory effort Cardio: Rate: regular rate Rhythm: regular rhythm GI: Inspection: distended Skin: General skin exam: normal color Neuro: General: gait normal Cranial nerves: Yes Equal, round and reactive pupils present Speech: normal speech Motor exam (neuro): 5/5 motor strength present throughout Psych: Mental Status: mental status grossly normal Affect: Anxious affect present Objective Data Vital Signs Vital Signs: Vital Signs - 24 hr 12/07/24 05:30 12/07/24 06:00 12/07/24 06:36 Temperature 97.9 F Pulse Rate 61 61 Respiratory Rate 17 Blood Pressure 201/86 H Pulse Oximetry 100 Oxygen Delivery Room Air 12/07/24 07:28 Temperature 97.6 F Pulse Rate 60 Respiratory Rate 20 Blood Pressure 174/79 H Pulse Oximetry 98 Oxygen Delivery Meds/Results Medications: Active Medications Generic Name Dose Route Start Last Admin Trade Name Freq PRN Reason Stop Dose Admin Acetaminophen 650 mg 12/07/24 05:43 Acetaminophen 325 Mg Tablet PO Q4H PRN Mild Pain (1-3) or Fever Bisacodyl 10 mg 12/07/24 05:43 Bisacodyl 10 Mg Suppository RECTAL ONCE PRN Constipation Heparin Sodium (Porcine) 4,000 units 12/07/24 05:45 Heparin Sodium 5,000 Units/Ml Vial IV PUSH PRN PRN aPTT less than 55 seconds Heparin Sodium (Porcine) 3,500 units 12/07/24 05:45 Heparin Sodium 5,000 Units/Ml Vial IV PUSH PRN PRN aPTT 55 - 70 seconds Heparin Sodium/Dextrose 25,000 units in 250 mls @ 10 mls/hr 12/07/24 05:45 12/07/24 06:30 Heparin Sodium/D5w 100 Units/Ml IV CONT 1,000 units/hr .Q24H [place] 10 mls/hr Administration Protocol 1,000 UNITS/HR Perflutren Lipid Microsphere 0 ml 12/07/24 08:16 Perflutren Lipid Microspheres 1.5 Ml Vial Diluted To 10 Ml Total Volume IV PUSH 12/10/24 08:16 ONCE PRN adequate visualization Protocol Prochlorperazine Edisylate 10 mg 12/07/24 05:43 Prochlorperazine Edisylate 10 Mg/2 Ml Vial IV PUSH Q6H PRN Nausea And Vomiting Labs Labs: Laboratory Results - last 24 hr 12/07/24 06:04 WBC 11.6 H RBC 5.17 Hgb 14.7 Hct 44.4 MCV 85.9 MCH 28.4 MCHC 33.1 RDW 14.6 H Plt Count 182 MPV 9.8 Immature Gran % (Auto) 0.6 H Neut % (Auto) 73.2 H Lymph % (Auto) 15.2 L [place] % (Auto) 6.5 Eos % (Auto) 4.2 Baso % (Auto) 0.3 Lymph # (Auto) 1.76 [place] # (Auto) 0.8 H Eos # (Auto) 0.5 H Baso # (Auto) 0.0 Abs Immat Gran (auto) 0.07 H Absolute Neuts (auto) 8.4 H Absolute Nucleated RBC 0.000 Nucleated RBC % 0.0 PT 13.0 INR 0.9 APTT 36.2 Troponin I 2.880 H* Triglycerides 348 H Cholesterol 152 LDL Cholesterol Direct 52 HDL Direct 37 Quality VTE Prophylaxis VTE prophylaxis: mechanical ordered and pharmacologic ordered
[2024-12-07] MEDS: IRBESARTAN 150 MG TABLET 300 MG PO (10:05)
[2024-12-07] MEDS: amLODIPine BESYLATE 10 MG TABLET PO (10:06)
[2024-12-07] MEDS: NEBIVOLOL HCL 5 MG TABLET 10 MG PO (10:06)
[2024-12-07] MEDS: ATORVASTATIN 40 MG TABLET 80 MG PO (10:12)
[2024-12-07 11:07] LABS: Glucose Point of Care 195 mg/dl (65-105)
--- NOTE | 2024-12-07 13:07 | WPDCARDPROC ---
Cardiac Cath Procedure Note Date of procedure:: 12/07/24 Performing physician:: CATHETERIZATION LABORATORY REPORT Procedure Date: 12/07/2024 Shipyard Supervisor: Maurice Velasco M.D., [facility]? Referring Physician: Dr. Sung Anesthesia: Versed and Fentanyl were ordered and given in my presence at 12:38, procedure ended at 13:00. Supervision of nurse monitored moderate sedation with Versed and Fentanyl was provided for 22 minutes. Total of Versed 1mg, Fentanyl 50mcg, Benadryl 50mg were administered by the Agriculture Consultant RN Patrick Dennis. Of note, Benadryl was administered due to hives allergy with Lidocaine. Pre-op Diagnosis: NSTEMI. Post-op Diagnosis: 1. Multivessel coronary artery disease 2. Elevated left ventricular end-diastolic pressure of 27mmHg. Procedure(s): 1. Moderate sedation 2. Ultrasound-guided access of the right radial artery 3. Coronary angiography 4. Left heart cath Access Site: Right radial artery Brief History and Clinical Indications: Patient is a 59 year old male with carotid artery disease s/p CEA, hypertension, hyperlipidemia, diabetes mellitus, CKD stage IV, OSMEL, family history of CAD who is admitted to [place] for NSTEMI. Has been having chest pain. Troponin is 2.88. EKG shows sinus rhythm, nonspecific STTW abnormality. Dr. Sung is primary telehealth nurse educator who has referred patient for [facility]. All risks, benefits and alternatives to left heart catheterization with or without percutaneous coronary intervention was discussed at length with the patient. Risk of complications including but not limited to bleeding, infection, arrhythmia, stroke, worsening kidney function, blood loss, groin hematoma, limb loss, emergency coronary artery bypass grafting, and even were discussed with the patient and all questions were answered. The patient understood and wished to proceed. Time out called, patient name, date of , medical record number, allergies, procedure performed, identify Shipyard Supervisor, patient and staff member concurred with accurate data, procedure carried on. Findings: LEFT HEART CATHETERIZATION FINDINGS: 1. Left main: The left main coronary artery is widely patent without any significant obstructive disease. 2. Left anterior descending: The mid LAD after the bifurcation of the second septal branch has a 70-80% stenosis. There is an occluded diagonal branch with some leaj-xe-ogas-collateral filling 3. Left circumflex: The left circumflex artery is the dominant vessel. The mid LCX has an angiographic moderate 50-60% stenosis. OM-1 branch has a 90-99% stenosis in the proximal portion. OM-2 has 60-70% stenosis in the proximal portion. The LPDA is subtotally occluded. 4. Right coronary artery: The RCA is a small caliber vessel, possibly co-dominant. The RCA is subtotally occluded in the mid portion. There are some right to right bridging collaterals. 5. Left ventricle: A. End-diastolic pressure 27 mmHg. B. LV gram deferred. C. No significant gradient across aortic valve on catheter pullback. Description of Procedure: Informed consent signed and placed in the chart. Patient transferred to medical laboratory scientist room. Prepped and draped in usual sterile fashion. 2% lidocaine injected subcutaneously in right wrist area. 22-gauge venipuncture catheter used to access the right radial artery under ultrasound guidance. 6-FR slender sheath placed in right radial artery. Nitroglycerine and Verapamil were given intraarterial through the sheath. Versacore wire advanced under fluoroscopy 5F Tig 4 diagnostic catheter engaged Left Main Coronary Artery. 5F Tig 4 diagnostic catheter engaged Right Coronary Artery Multiple orthogonal angiogram obtained and reviewed 5F Pigtail diagnostic catheter crossed aortic valve to obtain LVEDP, LV angiogram deferred. Hemostasis was achieved by application of TR band. Disposition: Floor Plan: The patient will be monitored in the recovery area. The above findings were discussed with the referring physician. Recommend CT Surgery consultation for consideration of surgical revascularization. Continue aggressive medical therapy and risk factor modification. ? Maurice Velasco M.D. Interventional Cardiology
[2024-12-07] MEDS: SODIUM CHLORIDE 0.9% IV 1,000 ML 125 ML IV CONT (15:45)
[2024-12-07 16:22] LABS: Glucose Point of Care 284 mg/dl (65-105)
[2024-12-07 18:02] LABS: Glucose Point of Care 324 mg/dl (65-105)
[2024-12-07] MEDS: cloNIDine HCL 0.2 MG TABLET PO (18:12)
[2024-12-07] MEDS: INSULIN ASPART (*BKC) 100 UNITS/ML 12 UNITS SUB-Q (18:12)
--- NOTE | 2024-12-07 19:05 | PC.NURSE ---
Pt to be transferred to [facility] to room 914. Report called and given to SERGE Dailey. Pending transfer.
[2024-12-07 19:24] LABS: Glucose Point of Care 343 mg/dl (65-105)
[2024-12-07] MEDS: INSULIN GLARGINE (*BKC) 100 UNITS/ML 22 UNITS SUB-Q (20:15)
[2024-12-07 23:09] LABS: Hemoglobin A1C 7.9 % (<5.7)
--- NOTE | 2024-12-08 07:42 | PM.TDS ---
Transfer Discharge Sum: Prov Provider Date of admission: 12/07/24 10:57 Primary care physician: Jacques Hobbs DO Admitting clinician: Elliot Farooq MD Consults: 12/07/24 Consult to Physician Routine Comment: Consulting Provider: Maurice Velasco engine dynamometer tester/MD group to consult: HCG Reason for consultation: [facility] for NSTEMI Has provider been notified: Yes Consult to Physician Routine Comment: Dr notified of consult Consulting Provider: Olegario Sung engine dynamometer tester/MD group to consult: Cardiology Reason for consultation: Chest pain; NSTEMI Has provider been notified: Yes DS: Admitting Diagnosis Discharge Date 12/07/24 Admitting Diagnosis NSTEMI DS: Discharge Diagnosis Discharge Diagnosis (1) Non-ST elevated myocardial infarction (non-STEMI): Code(s): I21.4 - Non-ST elevation (NSTEMI) myocardial infarction Status: Inactive (2) Hypertension: Code(s): I10 - Essential (primary) hypertension Status: Acute (3) Diabetes mellitus with chronic kidney disease: Code(s): E11.22 - Type 2 diabetes mellitus with diabetic chronic kidney disease Status: Acute (4) Dyslipidemia: Code(s): E78.5 - Hyperlipidemia, unspecified Status: Acute (5) Gout: Qualifiers: Gout etiology: due to renal impairment Code(s): M10.9 - Gout, unspecified Status: Acute (6) GERD (gastroesophageal reflux disease): Code(s): K21.9 - Gastro-esophageal reflux disease without esophagitis Status: Acute Transfer Discharge Sum: Med Medications Active and Home Medications: Home Medications aspirin 325 mg tablet,delayed release 325 mg PO DAILY #30 tabs 11/27/22 [Rx Confirmed 12/07/24] hydrochlorothiazide 25 mg tablet 25 mg PO DAILY 03/22/24 [History Confirmed 12/07/24] blood sugar diagnostic (Accu-Chek Guide test strips) #100 ea 07/21/24 [Rx Confirmed 12/07/24] blood-glucose meter #1 ea 07/21/24 [Rx Confirmed 12/07/24] lancets (Accu-Chek Softclix Lancets) #200 ea 07/21/24 [Rx Confirmed 12/07/24] amlodipine 10 mg tablet See Rx Instructions .Route .COMPLEX #90 tabs 09/05/24 [Rx Confirmed 12/07/24] empagliflozin 10 mg tablet (Jardiance) See Rx Instructions .Route .COMPLEX #30 tabs 09/15/24 [Rx Confirmed 12/07/24] pen needle, diabetic 31 gauge x 3/16 (BD Ultra-Fine Mini Pen Needle) #100 ea 10/09/24 [Rx Confirmed 12/07/24] bupropion HCl 300 mg 24 hr tablet, extended release See Rx Instructions .Route .COMPLEX #90 tabs 10/10/24 [Rx Confirmed 12/07/24] irbesartan 300 mg tablet See Rx Instructions .Route .COMPLEX #90 tabs 10/11/24 [Rx Confirmed 12/07/24] insulin lispro 100 unit/mL subcutaneous pen 12 unit (0.12 mL) subcut TIDWMEAL #15 mL 10/24/24 [Rx Confirmed 12/07/24] atorvastatin 40 mg tablet See Rx Instructions .Route .COMPLEX #60 tabs 10/30/24 [Rx Confirmed 12/07/24] clonidine HCl 0.2 mg tablet 0.2 mg PO BID 11/09/24 [History Confirmed 12/07/24] insulin glargine 100 unit/mL subcutaneous solution (Lantus U-100 Insulin) 22 unit subcut HS 11/09/24 [History Confirmed 12/07/24] nebivolol 20 mg tablet (Bystolic) 20 mg PO 3XW 11/09/24 [History Confirmed 12/07/24] blood-glucose sensor (FreeStyle Kavon 3 Sensor device) #2 ea 12/01/24 [Rx Confirmed 12/07/24] allopurinol 100 mg tablet See Rx Instructions .Route .COMPLEX #90 tabs 12/04/24 [Rx Confirmed 12/07/24] escitalopram oxalate 10 mg tablet See Rx Instructions .Route .COMPLEX #90 tabs 12/04/24 [Rx Confirmed 12/07/24] semaglutide 1 mg/dose (4 mg/3 mL) subcutaneous pen injector (Ozempic) See Rx Instructions .Route .COMPLEX #3 mL 12/06/24 [Rx Confirmed 12/07/24] Transfer Discharge Sum: Hosp Hospital Course Hospital course: Travis Salmeron is a 59 year old male with medical history significant for dyslipidemia, depression, hypertension, IDDM 2, obesity and gout. About a month ago he developed a central chest pain which is sharp/aching in nature; rated 7-9 intensity; present at rest on exertion; associated with his anxiety, malaise under suction his ADLs. During that event last month he was evaluated in the ER where he was found to be COVID-19 positive and believed to have potential pneumonia for which he was given antibiotic therapy. Symptoms are not associated with cough, bipolar edema, PND, orthopnea, fevers, chills nausea/vomiting. Remained stable until hours prior to evaluation of his [place]-[facility], had developing similar pain which cut across his chest and this failed to resolve He chews tobacco, denies recreational/illicit drug use; does not drink alcohol. Family history significant for coronary artery disease in his mother on most of her siblings with most of them undergoing CABG. Patient then underwent left heart catheterization on 12/07 and it showed multivessel coronary artery disease, elevated LVEDP of 27mmHg. Cardiology then recommend CT Surgery consultation for consideration of CABG. This was determined to need a higher level care and necessitate the transfer to another facility. [facility] accepted the patient on 12/07 and the patient was subsequently transferred that day for CABG. Time Spent with Patient Time attestation: Total time spent providing and/or coordinating transfer services: 30 Exam Const: General: comfortable and no acute distress HENMT: Ears: TM's normal bilaterally Face/Nose/Sinus: Normal nares present Eyes: General: appearance normal, both eyes and all related structures Sclera: sclerae normal Pupils: Equal, round and reactive pupils present EOM: EOMs intact bilaterally Neck: Neck: supple Resp: Effort & Inspection: normal respiratory effort Cardio: Rate: regular rate Rhythm: regular rhythm GI: Inspection: distended Skin: General skin exam: normal color Neuro: General: gait normal Cranial nerves: Yes Equal, round and reactive pupils present Speech: normal speech Motor exam (neuro): 5/5 motor strength present throughout Extrem: General: normal to inspection Psych: Mental Status: mental status grossly normal Affect: Anxious affect present DS: Data Data Completed and Pending Labs on day of discharge: Labs from last 24 hours 12/07/24 12/07/24 12/07/24 19:20 17:58 16:19 POC Capillary Glucose 343 H 324 H 284 H Hemoglobin A1c 12/07/24 12/07/24 11:04 06:04 POC Capillary Glucose 195 H Hemoglobin A1c 7.9 H Imaging Radiologist's impression: XR chest 1V portable 12/06/24 IMPRESSION: Cardiomegaly. No acute cardiopulmonary pathology. CA echo doppler color flow 12/07/24 Summary 1. Complete two-dimensional, color flow and Doppler transthoracic echocardiogram is performed. 2. Left ventricular chamber dimension is normal. 3. Left ventricular systolic function is normal, estimated at 60-65%. 4. There is mild concentric increased left ventricular wall thickness. 5. The left ventricular diastolic function is grade I diastolic dysfunction. 6. E/e' 16 is elevated. 7. Left atrial chamber dimension is mildly enlarged. 8. There is mild aortic valve sclerosis. 9. There is mild mitral valve regurgitation. 10. No pulmonary hypertension, estimated pulmonary arterial systolic pressure is 22 mmHg.
== END 2024-12-07 20:20 | disposition short-term general hospital (02) | DRG 281 ==
PROVIDERS: Internal Medicine; Admitting Provider Internal Medicine; PCP Family Medicine; Visit Provider Physician Assistant
PROC: 4A023N7 Measurement of Cardiac Sampling and Pressure, Left Heart, Percutaneous Approach (ICD-10-PCS; CPT 93452; principal; 2024-12-07 09:00)
DX: I21.4 Non-ST elevation (NSTEMI) myocardial infarction (principal); N18.4 Chronic kidney disease, stage 4 (severe); I25.10 Atherosclerotic heart disease of native coronary artery without angina pectoris; I12.9 Hypertensive chronic kidney disease with stage 1 through stage 4 chronic kidney disease, or unspecified chronic kidney disease; I65.29 Occlusion and stenosis of unspecified carotid artery; E11.22 Type 2 diabetes mellitus with diabetic chronic kidney disease; E78.5 Hyperlipidemia, unspecified; E66.9 Obesity, unspecified; K21.9 Gastro-esophageal reflux disease without esophagitis; M10.9 Gout, unspecified; G47.33 Obstructive sleep apnea (adult) (pediatric); F32.A Depression, unspecified; Z79.82 Long term (current) use of aspirin; Z79.4 Long term (current) use of insulin; Z87.891 Personal history of nicotine dependence
CPT/HCPCS: 36415; 80061; 82948; 83036; 84484; 85025; 85610; 85730; 93005; 93306; 93458; A9270; C1769; C1887; C1894; G0378; J1200; J1644; J1815; J2003; J2250; J2305; J3010; J7030; J7040